=== PATIENT | male | born 1955 | race Caucasian/White ===

== ENCOUNTER 2020-04-30 13:29 | Outpatient (CLI) | payer MEDICARE, MEDICAID, SELFPAY ==
--- NOTE | 2020-04-30 14:12 | CT_ITS ---
WS: [id number] CT ABDOMEN AND PELVIS WITH CONTRAST HISTORY: LEFT UPPER QUADRANT PAIN TECHNIQUE: Imaging performed of the abdomen and pelvis with IV contrast. Single phase imaging of the abdomen. Coronal and sagittal reformats are submitted. All CT scans at [facility] use at least one of these dose optimization techniques: automated exposure control; mA and/or kV adjustment per patient size (includes targeted exams where dose is matched to clinical indication); or iterativ e reconstruction. IV CONTRAST: Visipaque 320; 95 mL IV. Oral contrast: Yes. DLP: 1176.79 mGycm COMPARISON: 03/10/2018 Lower thorax: Chronic emphysematous changes and scarring at the lung bases. Mildly enlarged heart. Mi ld diffuse circumferential thickening of the distal esophagus. Similar to the prior study. Liver/biliary system: Normal size liver. There are several subcentimeter scattered hypodensities thro ughout the liver which appear to been present on the prior study. Portal vein is patent. Gallbladder: Chronic diffuse thickening of the gallbladder wall. There is increased density within th e gallbladder lumen likely due to stones. Common bile duct is not dilated. Pancreas: Severe fatty replacement. Spleen: Normal. Adrenal glands: Bilateral adrenal gland nodules are stable over several years. The largest on the LEF T measures 2.0 cm. Right kidney: Mild atrophy with no obstruction. Left kidney: Mild renal atrophy with no obstruction. Simple cyst measures 1.2 cm upper pole. There is a nonobstructing calcification in the lower pole measuring 8 mm. Aorta: Mild tortuosity and atherosclerosis of aorta. There is calcified plaque and intimal thickening with no aneurysm. Lymphadenopathy: None. Free fluid: None. GI tract: No GI tract obstruction. There are a few scattered diverticula in the descending and sigmoi d colon. Fatty-containing nodule from the descending colon may be from prior epiploic appendicitis. Fat necrosis. Abdominal wall: Postsurgical repair of the LEFT lateral abdominal wall hernia. Pelvis: Inguinal canals are patent bilaterally. No free fluid in the pelvis. Normally distended urina ry bladder. Bones: Bilateral pars defects. CT/CT abdomen pelvis w con* [id number] IMPRESSION: 1. Abnormal gallbladder. Diffuse chronic gallbladder wall thickening with vari able density in the gallbladder. Abnormal density in the gallbladder is probabl y due to stones. Gallbladder mass cannot be excluded on this examination. Consi khalida further evaluation by RIGHT upper quadrant ultrasound. Gallstones have been described on prior ultrasounds from 2014. 2. Fatty replacement of the pancreas. 3. Stable bilateral adrenal adenomas. 4. Prior repair of a LEFT abdominal wall hernia.
[2020-04-30] MEDS: iohexol 300 mg/mL 50 mL Btl PO (14:50)
[2020-04-30 15:54] LABS: Blood Urea Nitrogen 9 mg/dL (8-23)
== END 2020-04-30 13:30 | disposition home or self-care (01) ==
LOC: RADWPI 13:42
PROVIDERS: Family Provider Nurse Practitioner Family; PCP Nurse Practitioner Family; Visit Provider Surgery
DX: R10.12 Left upper quadrant pain (principal); R93.2 Abnormal findings on diagnostic imaging of liver and biliary tract
CPT/HCPCS: 74177; 82565; 84520; Q9967

== ENCOUNTER 2020-07-03 10:11 | Outpatient (CLI) | payer MEDICARE, MEDICAID, SELFPAY ==
--- NOTE | 2020-07-03 10:16 | CT_ITS ---
WS: [id number] CT NECK TECHNIQUE: Contrast-enhanced CT of the neck with coronal and sagittal reformatted images. CLINICAL INFORMATION: CHRONIC LARYNGITIS-DYSPHAGIA, OROPHARYNGEAL PHASE COMPARISON: None. DLP: 3249.[address] scans at [facility] use at least one of these dose optimization techniques: automat ed exposure control; mA and/or kV adjustment per patient size (includes targeted exams where dose is matched to clinical indication); or iterative reconstruction. FINDINGS: Salivary glands are normal. Normal submandibular glands. Posterior nasopharynx is normal. Normal tong ue base. Normal parapharyngeal fat. No evidence of supraglottic or glottic mass. Normal vallecula and piriform sinuses. Subglottic airway is normal. No cervical lymphadenopathy. A few prominent lymph nodes in the anterior mediastinum likely reactive. Thyroid gland is normal. Emphysematous changes in the lung apices. Moderate spondylitic changes cerv ical spine. Mastoid air cells are well aerated. Complete Opacification frontal sinuses and frontoethm oidal recesses. Small amount of fluid in the sphenoid sinuses. Mild mucosal thickening mastoid air cells. CT/CT neck w con* [id number] IMPRESSION: 1. No evidence of supraglottic or glottic mass. 2. Normal salivary glands. 3. Cervical lymphadenopathy. 4. Complete opacification of the frontal sinuses and frontal ethmoidal recesse s. Mild mucosal thickening ethmoid air cells and small amount of fluid in the s phenoid sinuses. 5. Mild mucosal thickening in the mastoid air cells.
[2020-07-03] MEDS: iohexol 300 mg/mL 100 mL Btl IV (10:34)
== END 2020-07-03 10:12 | disposition home or self-care (01) ==
LOC: RADWPI 10:15
PROVIDERS: Family Provider Nurse Practitioner Family; PCP Nurse Practitioner Family; Visit Provider Specialist
DX: J37.0 Chronic laryngitis (principal); R13.12 Dysphagia, oropharyngeal phase; R59.0 Localized enlarged lymph nodes
CPT/HCPCS: 70491; Q9967

== ENCOUNTER 2020-07-19 10:57 | Outpatient (CLI) | payer MEDICARE, MEDICAID, SELFPAY ==
--- NOTE | 2020-07-19 11:06 | FL_ITS ---
WS: [id number] MODIFIED BARIUM SWALLOW HISTORY: Oropharyngeal dysphagia FLUOROSCOPY TIME: 1.8 minutes. Modified barium swallow was performed by the speech pathologist. Fluoroscopy was provided with the pa tient in a lateral projection. Multiple food consistencies were provided. Patient swallowed all food consistencies without difficulty. No aspiration or laryngeal penetration w as identified. There is some very minimal coating of the vallecula and piriforms. Patient swallowed t he barium tablet without difficulty. Dysmotility and poor contractility of the mid to distal esophagu s. There was intermittent delay in propulsion of the barium tablet through the GE junction which is p robably due to dysmotility. FL/FL barium swallow modifd [id number] IMPRESSION: 1. No significant aspiration or laryngeal penetration or swallowing deficits. 2. Moderate esophageal poor contractility and dysmotility. Please see speech therapist report also for recommendations.
== END 2020-07-19 10:58 | disposition home or self-care (01) ==
LOC: RAD 11:01
PROVIDERS: PCP Nurse Practitioner Family; Visit Provider Specialist
DX: J37.0 Chronic laryngitis (principal); R13.12 Dysphagia, oropharyngeal phase
CPT/HCPCS: 74230; 92611

== ENCOUNTER 2020-07-22 09:47 | Outpatient (CLI) | payer MEDICARE, MEDICAID, SELFPAY ==
--- NOTE | 2020-07-22 09:51 | FL_ITS ---
WS: [id number] ESOPHAGRAM TECHNIQUE: Double contrast examination was performed with thin and thick barium. Upright and ZHAO imag es were obtained. CLINICAL INFORMATION: CHRONIC LARYNGITIS/DYSPHAGIA, OROPHARYNGEAL PHASE COMPARISON: None. FINDINGS: Swallowing: No aspiration or penetration. Esophagus: Severe esophageal dysmotility with tertiary contractions in the distal esophagus. Signific antly delayed emptying on the upright and supine imaging with standing column of contrast for several minutes. GE junction appears normal. No significant hiatal hernia. Gastroesophageal reflux: Moderate reflux in the upright and supine position Fluoroscopy time: 3.5 minutes. FL/FL barium swallow [id number] IMPRESSION: 1. Severe esophageal dysmotility with tertiary contractions in the distal esop hagus and delayed emptying. 2. Significantly delayed emptying on the upright and supine imaging with stand ing column of contrast for several minutes. Patient risk for aspiration. 3. No evidence of persistent stricture or mass. 4. Moderate reflux in the upright and supine position.
== END 2020-07-22 09:48 | disposition home or self-care (01) ==
LOC: RAD 09:48
PROVIDERS: PCP Nurse Practitioner Family; Visit Provider Specialist
DX: J37.0 Chronic laryngitis (principal); R13.12 Dysphagia, oropharyngeal phase
CPT/HCPCS: 74220

== ENCOUNTER 2020-08-12 12:54 | Outpatient (CLI) | payer MEDICARE, MEDICAID, SELFPAY ==
--- NOTE | 2020-08-12 13:15 | CT_ITS ---
WS: [id number] CT CHEST TECHNIQUE: Noncontrast CT of the chest with coronal and sagittal reformatted images. CLINICAL INFORMATION: COPD COMPARISON: CT chest December 22, 2017 and DLP: 943.[address] scans at [facility] use at least one of these dose optimization techniques: automat ed exposure control; mA and/or kV adjustment per patient size (includes targeted exams where dose is matched to clinical indication); or iterative reconstruction. FINDINGS: Moderate chronic emphysematous changes. Patchy fibrotic appearing opacities in the left lower lobe si milar to previous. Patchy nodular opacities in left upper lobe new from previous and may be infectiou s or inflammatory but nonspecific. Nodular opacities measure 5 to 6 mm. Patchy hazy opacities in the right lower lobe progressed from previous likely infectious or inflammat ory.No mediastinal or hilar lymphadenopathy. Normal endobronchial tree. Bilateral renal cortical atrophy. Stable bilateral adrenal adenomas. Small splenule. Cholelithiasis w ith gallbladder wall thickening. Recommend further evaluation with ultrasound. This is partially visu alized. Fatty atrophy of the pancreas. Small pericardial effusion. Hypertrophic changes thoracic spin e. CT/CT chest wo con [id number] IMPRESSION: 1. Moderate chronic emphysematous changes. 2. New patchy opacities in right lower lobe likely infectious or inflammatory. Recommend correlation for pneumonitis. 3. New micronodular patchy opacities left upper lobe measuring 5-6 mm. Recomme nd 3 month follow-up. 4. Stable fibrotic appearing opacities/subsegmental atelectasis left lower lob e. 5. No mediastinal or hilar lymphadenopathy. 6. Cholelithiasis with gallbladder wall thickening. Recommend further evaluati on with ultrasound. 7. Stable bilateral adrenal adenomas. 8. Small pericardial effusion.
== END 2020-08-12 12:55 | disposition home or self-care (01) ==
LOC: RADWPI 13:00
PROVIDERS: PCP Nurse Practitioner Family; Visit Provider Internal Medicine Pulmonary Disease
DX: J44.9 Chronic obstructive pulmonary disease, unspecified (principal); I31.3 Pericardial effusion (noninflammatory); D35.02 Benign neoplasm of left adrenal gland; D35.01 Benign neoplasm of right adrenal gland; K80.20 Calculus of gallbladder without cholecystitis without obstruction
CPT/HCPCS: 71250

== ENCOUNTER → 2020-08-19 10:18 | Outpatient (BNVA) | payer MEDICARE, MEDICAID, SELFPAY | PROVIDERS: PCP Nurse Practitioner Family; Visit Provider Internal Medicine Pulmonary Disease | DX: Z20.828 Contact with and (suspected) exposure to other viral communicable diseases (principal); R04.2 Hemoptysis | CPT/HCPCS: 87635 ==

== ENCOUNTER 2020-08-21 09:00 | Outpatient (CLI) | payer MEDICARE, MEDICAID, SELFPAY ==
[2020-08-21 10:06] VITALS: BP 142/86; BP 151/82
--- NOTE | 2020-08-21 10:08 | PFTS_ITS ---
Date of Study:08/21/20 Date of Dictation: MECHANICS: Forced vital capacity (FVC) is reduced. Forced expiratory volume in one second (FEV1) is reduced. FEV1/FVC is reduced. FLOW VOLUME LOOP: Reduced flow at all lung volumes with significant scooping. LUNG VOLUMES: Lung volumes are not measured DIFFUSING CAPACITY FOR CARBON MONOXIDE: Moderately reduced INTERPRETATION: The pulmonary function tests are consistent with moderate obstruction. Gas exchange (DLCO) is moderately reduced. MTDD
== END 2020-08-21 09:01 | disposition home or self-care (01) ==
LOC: RT 09:01
PROVIDERS: PCP Nurse Practitioner Family; Visit Provider Internal Medicine Pulmonary Disease
DX: J44.9 Chronic obstructive pulmonary disease, unspecified (principal)
CPT/HCPCS: 94010; 94618; 94729

== ENCOUNTER 2020-08-22 10:07 | Inpatient (IN) | payer MEDICARE, MEDICAID, SELFPAY ==
[2020-08-20 08:53] VITALS: BMI 28.5
[2020-08-22] VITALS (25 sets, daily range): BP systolic 97–137; BP diastolic 76–115; PULSE 102–142; RESP 13–28; TEMP 35.5–36.7; O2SAT 92–97
--- NOTE | 2020-08-22 07:25 | ECG_ITS ---
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 Measurements Intervals [place] Rate: 133 P: [place]: -1 QRS: 64 QRSD: 96 T: 28 QT: 277 QTc: 413 Interpretive Statements ATRIAL FIBRILLATION WITH RAPID VENTRICULAR RESPONSE SEPTAL MYOCARDIAL INFARCTION [40+ ms Q WAVE IN V1/V2], PROBABLY OLD Compared to ECG 07/12/2015 12:34:55 Myocardial infarct finding now present Sinus bradycardia no longer present Electronically Signed On 08-22-2020 17:11:32 CDT by Mle Cobb M.D. [id number]
[2020-08-22] MEDS: sodium chloride 0.9% 1,000 ML 30 ML IV (07:36)
--- NOTE | 2020-08-22 08:18 | ANES.PREANE2 ---
Pre-Anesthetic Assessment Pre-Anesthetic Assessment: Height/Weight: Height 1.8 m Weight 92.986 kg Temp Pulse Resp BP Pulse Ox 96 F L 137 H 18 137/115 96 08/22/20 07:29 08/22/20 07:29 08/22/20 07:29 08/22/20 07:29 08/22/20 07:29 Preop Diagnosis: GERD, screening Proposed Procedure: Operation Date: 08/22/20 09:00 Proposed Procedures p EGD/colon(Not Applicable) - Neil Flores MD s Colonoscopy(Not Applicable) - Neil Flores MD Familial anesthetic complications: None Was Beta Abilio taken within 24 hours: Yes Last intake: Intake Last Liquid Date 08/21/20 Last Liquid Time 22:00 Last Solid Date 08/21/20 Last Solid Time 08:00 Social: Comment: former smoker Exam: Pre-Anes Outpt Exam: alert, oriented x 3, clear to auscultation bilaterally and regular rate & rhythm Airway: Cervical ROM: WNL Dentition: Other (edentulous) Additional comments: no uvula Pulmonary: Pulmonary: COPD and Sleep apnea CV/HEM: CV/HEM: Afib Comments: currently in RVR Xarelto last taken on wednesday, no may currently be at risk of clot formation Will try to control rate w/ IV metroprolol - if unable to get rate down, cardiology recommending admission and rate control and postponement of colonoscopy GI: GI: GERD Metabolic: Metabolic: Hyperlipidemia Anesthetic Plan: ASA status: 4 Anesthesia: MAC Risk of > 500 ml blood loss (7ml/kg in children): No Meds/Allergies Current Medications: Current Medications Generic Name Dose Route Start Last Admin Trade Name Freq PRN Reason Stop Dose Admin Sodium Chloride 1,000 mls @ 30 ml s/hr 08/22/20 07:30 08/22/20 07:36 Sodium Chloride 0.9% IV 08/23/20 07:29 30 mls/hr .Q24H HERMINIO Administration PFSH Anesthesia PFSH: Medical History (Updated 08/22/20 @ 07:27 by Jazmyn Dallas) Anticoagulation adequate with anticoagulant therapy Xarelto 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 Surgical History Status post thoracic aortic aneurysm repair Family History Father CAD (coronary artery disease) Myocardial infarction Other Cancer Social History Smoking and tobacco status: former smoker Quit status (tobacco): has quit using tobacco Year quit tobacco: 1980 - 0.5 PPD x 8 Years Second hand smoke exposure: Yes Alcohol intake: current Alcohol intake frequency: holidays/special occasions only Lives independently: Yes Household members: none Marital status: service: No Current occupational status: disabled History of recent travel: No Current gender identity: Male Data Anesthesia Cardiac Studies: No Data to Display
[2020-08-22] MEDS: metoprolol tartrate 1 mg/1 mL SDV 5 mL 5 MG IV ×2 (08:19→10:42)
[2020-08-22] MEDS: sodium chloride 0.9% 500 ML 999 ML IV (09:30)
[2020-08-22 10:01] LABS: Basophils # 0.1 10^3/uL (0.0-0.1); Basophils % 1.2 %; Eosinophils # 0.1 10^3/uL (0.0-0.8); Eosinophils % 2.8 %; Hemoglobin 12.9 g/dL (11.7-16.6); Lymphocytes # 1.2 10^3/uL (0.8-4.8); Lymphocytes % 23.6 %; Mean Corpuscular HGB Conc 30.7 g/dL (30.0-36.0); Mean Corpuscular Hemoglobin 26.2 pg (28.0-34.0); Mean Corpuscular Volume 85.2 fL (80-94); Monocytes # 0.6 10^3/uL (0.2-0.9); Monocytes % 11.1 %; Neutrophils # 3.07 10^3/uL (1.8-7.7); Neutrophils % 60.9 %; Nucleated Red Blood Cells % 0 %; Platelet Count 150 10^3/cmm (130-400); Red Blood Count 4.93 10^6/uL (4.1-5.3); Red Cell Distribution Width 15.6 % (12.1-15.1)
[2020-08-22 10:14] LABS: Alanine Aminotransferase 7 U/L (0-41); Albumin Level 3.3 g/dL (3.5-5.2); Alkaline Phosphatase 46 IU/L (40-130); Anion Gap 10.6 (5-19); Aspartate Amino Transferase 15 U/L (0-40); Blood Urea Nitrogen 15 mg/dL (8-23); Carbon Dioxide 27 mmol/L (22-29); Chloride 104 mmol/L (98-107); Creatinine Clr Calc Pharmacy 86.9508; Globulin 3.3 g/dL (1.3-4.6); Glomerular Filtration Rate 75.2 mL/min (90-130); Glucose 90 mg/dL (65-115); Osmolality Calculated 284 mOsm/kg (285-295); Potassium 4.6 mmol/L (3.5-5.1); Sodium 137 mmol/L (136-145); Total Bilirubin 0.8 mg/dL (0.15-1.2); Total Protein 6.6 g/dL (6.6-8.7)
--- NOTE | 2020-08-22 10:30 | PC.NURSE ---
Patient to CSU from OP surgery. Patient A&Ox4, no chest pain, no shortness of breath. A fib c RVR on telemetry, HR 120s-130s BP 114/96. Dr. Almaguer notified of patient condition. Telephone order received for IV metoprolol 5 mg one time. RBVO.
--- NOTE | 2020-08-22 10:38 | XR_ITS ---
WS: [id number] Portable AP upright chest, 08/22/2020 Clinical Data: A Fib RVR, concern for CHF Comparison: PA and lateral chest, 10/11/2018. Findings: No nodules, masses or effusions are seen. The heart is large. The pulmonary vascularity is not increased. No pneumonia or pneumothorax is seen. There is patchy atelectasis at the left costophr enic angle. There are sutures in the left upper quadrant. Monitor leads are on the chest wall. The ao rtic arch and descending aorta are tortuous. XR/XR chest 1V portable [id number] Impression: 1. Cardiomegaly. 2. Atherosclerosis. 3. No evidence of heart failure.
--- NOTE | 2020-08-22 11:05 | SUR.PREOP ---
1020: patient taken to 103. report was called to Maya MADRIGAL. Patient is awake and alert, able to ambulate. taken by wheelchair. patient on room air.
--- NOTE | 2020-08-22 11:57 | P.HP_ITS ---
Providers/Chief Complaint Admitting Physician: Neil Flores MD Primary Care Provider: ALEJA Oropeza Chief Complaint: egd/colon History of Present Illness Lidia Ruvalcaba is a 65 year old male with a past medical history of atrial fibrillation that presented to the hospital today for scheduled colonoscopy. He reported that he has been doing his prep and did not have any concerns. Presented to the hospital today was noted to have atrial fibrillation with RVR therefore case was canceled and patient was admitted to the hospital for further evaluation and treatment. He denies any recent illness, no fevers or chills. Denies any changes in his medications and believes that he took his metoprolol this morning but he is uncertain. Stated that he was told to take 2 medications and he thinks they were his metoprolol and his montelukast. He denies any chest pain, no shortness of breath. Reported that he has followed with Dr. Jenkins in the past. Review of Systems Const: Denies: fever(s) or chills Eyes: Denies: change in vision ENMT: Denies: nasal congestion Card: Denies: chest pain, palpitations or edema Resp: Denies: dyspnea, productive cough or hemoptysis GI: Reports: other (loose stools with colonoscopy prep); Denies: abdominal pain, nausea, vomiting, constipation, hematochezia or melena : Denies: dysuria or hematuria Musc: Denies: extremity pain or muscle cramps Skin/Breast: Denies: rash or new lesions Neuro: Denies: headache(s) or dizziness Psych: Denies: anxiety or depression Endo: Denies: polyuria or hot flashes Agustin/Lymph: Denies: easy bruising or easy bleeding Medications/Allergies Home Medications Medication Instructions Recorded Confirmed Last Taken Type amlodipine 5 mg tablet 5 mg PO QDAY 12/27/19 08/22/20 08/21/20 History irbesartan 150 mg tablet 150 mg PO QDAY 12/27/19 08/22/20 08/21/20 History levocetirizine 5 mg tablet 5 mg PO QDAY PRN 12/27/19 08/22/20 08/21/20 History metoprolol succinate 50 mg 25 mg PO QDAY tab 12/27/19 08/22/20 08/22/20 05:45 History tablet,extended release 24 hr pantoprazole 40 mg tablet,delayed 40 mg PO QDAY 12/27/19 08/22/20 08/21/20 Hi story release rivaroxaban 15 mg tablet 15 mg PO QDAY 12/27/19 08/22/20 08/20/20 History simvastatin 20 mg tablet 20 mg PO QDAY 12/27/19 08/22/20 08/21/20 History umeclidinium 62.5 mcg-vilanterol 1 inh INHALATION DAILY #60 each 08/15/20 08/22/20 Unknown Rx 25 mcg/actuation powdr for inhalation montelukast 10 mg PO DAILY 08/20/20 08/22/20 08/22/20 05:45 History Allergies Allergy/AdvReac Type Severity Reaction Status Date / Time No Known Allergies Allergy Verified 08/15/20 09:00 PFSH Acute PFSH: Medical History (Updated 08/22/20 @ 12:30 by Kathleen Almaguer DO) Anticoagulation adequate with anticoagulant therapy Xarelto Atrial fibrillation 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 Surgical History (Updated 08/22/20 @ 12:30 by Kathleen Almaguer DO) History of hernia repair Status post thoracic aortic aneurysm repair Family History Father CAD (coronary artery disease) Myocardial infarction Other Cancer Social History Smoking and tobacco status: former smoker Quit status (tobacco): has quit using tobacco Year quit tobacco: 1980 - 0.5 PPD x 8 Years Second hand smoke exposure: Yes Alcohol intake: current Alcohol intake frequency: holidays/special occasions only Lives independently: Yes Household members: none Marital status: service: No Current occupational status: disabled History of recent travel: No Current gender identity: Male Vitals/I&O/Wt Last Vital Signs Temp 98.0 F 08/22/20 10:27 Pulse 102 H 08/22/20 11:12 Resp 20 H 08/22/20 10:41 BP 125/99 08/22/20 10:41 Pulse Ox 97 08/22/20 11:12 09/23/20 09/24/20 09/24/20 22:59 06:59 14:59 Intake Total 1500 / 1500 Balance 1500 / 1500 Physical Exam Const: COMMON NORMALS: patient oriented x3 and alert GENERAL APPEARANCE: cooperative ORIENTATION/CONSCIOUSNESS: Yes awake, Yes oriented to person, Yes oriented to place and Yes oriented to time HENMT: COMMON NORMALS: normocephalic and atraumatic HEAD & SCALP: normocephalic and atraumatic Eye: COMMON NORMALS: Equal, round and reactive pupils present PUPIL: Yes Equal, round and reactive pupils present Neck/C-Spine: COMMON NORMALS: supple GENERAL: Yes normal visual inspection Resp: COMMON NORMALS: normal respiratory effort and clear to auscultation bilaterally EFFORT & INSPECTION: Yes able to speak in complete sentences AUSCULTATION: clear to auscultation bilaterally, no rhonchi and no wheezes Cardio: OTHER: tachycardic, irregularly irregular GI: COMMON NORMALS: Soft to palpation and non-tender INSPECTION: No abdominal distension AUSCULTATION: Yes normoactive bowel sounds PALPATION: Yes Soft to palpation Extremity: COMMON NORMALS: no calf tenderness NARRATIVE EXTREMITY EXAM: 1+ pitting edema in the LE bilaterally Neuro: COMMON NORMALS: patient oriented x3, CN's II-XII intact bilaterally, moves all extremities and no focal motor deficits SENSORIUM/ORIENTATION: Yes alert, Yes oriented to person, Yes oriented to place and Yes oriented to time SPEECH: speech normal Psych: COMMON NORMALS: mental status grossly normal and cooperative Skin: COMMON NORMALS: no rashes or lesions noted GENERAL SKIN EXAM: no rashes or lesions noted Data : 08/22/20 09:52 08/22/20 09:38 A&P Assessment and plan (1) Atrial fibrillation: Presented for scheduled elective colonoscopy in Afib RVR Move to ICU on observation Telemetry Serial EKG and troponin ECHO TSH, CBC, CMP Given [id number] IV push x2 and remains afib RVR, will start cardizem drip. Patient reports taking his metoprolol this morning, but not completely confident Treatment dose lovenox while inpatient Status: Acute (2) COPD (chronic obstructive pulmonary disease): without acute exacerbation Oxygen per protocol RTAT Status: Acute Qualifiers: COPD type: unspecified COPD Qualified Code(s): J44.9 - Chronic obstructive pulmonary disease, unspecified (3) Anticoagulation adequate with anticoagulant therapy: Hold xarelto and give treatment dose lovenox while inpatient Status: Acute (4) WENDI (obstructive sleep apnea): not on CPAP Status: Acute (5) Hyperlipidemia: continue on statin Status: Acute Additional A&P Information Endoscopy: on hold at this time HTN: hold amlodipine, hold losartan and monitor BP with changes and addition of cardizem DVT ppx: Tx lovenox as above Diet: Cardiac Code status: Full code Attestations Medical Necessity Statement*: Observation placement due to atrial fibrillation with RVR in the preprocedural setting. Expected stay less than 2 midnights Coding Level of Care Code Acute Material Man for g Fwd Exam Comprehensive Diagnoses Atrial fibrillation I48.91 COPD (chronic obstructive pulmonary disease) J44.9 COPD type: unspecified COPD Anticoagulation adequate with anticoagulant therapy Z79.01 WENDI (obstructive sleep apnea) G47.33 Hyperlipidemia E78.5
[2020-08-22 12:03] LABS: INR 1.14 (0.8-1.2)
[2020-08-22 12:10] LABS: Magnesium 1.9 mg/dL (1.7-2.3); NT Pro B Type Natriuretic Pept 2026 pg/mL (0-125); Thyroid Stimulating Hormone 1.14 uIU/mL (0.27-4.20)
--- NOTE | 2020-08-22 12:18 | PC.NURSE ---
Dr. Almaguer updated on patient condition. Patient maintaining 130s-140s a fib 1 hour following metoprolol administration. Physician to put in order for Cardizem gtt and cardiac diet. Telephone order received to administer 10 mg Cardizem Bolus IV at initiation of gtt. Nurse to continue to monitor.
--- NOTE | 2020-08-22 12:22 | PC.NURSE ---
10 mg Cardizem bolus delivered with IV gtt. See flowsheet.
--- NOTE | 2020-08-22 12:39 | ECG_ITS ---
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 Measurements Intervals [place] Rate: 129 P: [place]: -1 QRS: 58 QRSD: 93 T: 3 QT: 289 QTc: 424 Interpretive Statements ATRIAL FIBRILLATION WITH RAPID VENTRICULAR RESPONSE SEPTAL MYOCARDIAL INFARCTION [40+ ms Q WAVE IN V1/V2], OF INDETERMINATE AGE WARNING: DATA QUALITY MAY AFFECT INTERPRETATION Compared to ECG 08/22/2020 07:53:38 No significant changes Electronically Signed On 08-22-2020 17:10:40 CDT by Mel Cobb M.D. [id number]
[2020-08-22] MEDS: metoprolol succinate ER (24 HR) 25 mg Tablet PO (13:23)
[2020-08-22] MEDS: atorvastatin 40 mg Tablet 20 MG PO (13:23)
[2020-08-22] MEDS: enoxaparin 100 mg/mL Syringe 90 MG SUBCUT (13:23)
[2020-08-22] MEDS: pantoprazole DR 40 mg Tablet PO (13:23)
[2020-08-22 13:29] LABS: Troponin(5th) Baseline 7 ng/L (0-15)
[2020-08-22 13:55] LABS: Troponin 5 2HR 6.73 ng/L (0-15)
[2020-08-22 13:56] LABS: Troponin 5 2HR Delta -0.27 ABS# (0-10)
--- NOTE | 2020-08-22 13:58 | PC.NURSE ---
Dr. Almaguer updated on patient condition. HR 130s-140s a fib, on 15 ml/hr Cardizem gtt for 30 minutes. BP 110/76. No new orders received at this time. Nurse to continue to monitor.
--- NOTE | 2020-08-22 14:39 | ECG_ITS ---
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 Measurements Intervals [place] Rate: 125 P: [place]: -1 QRS: 61 QRSD: 99 T: 16 QT: 294 QTc: 425 Interpretive Statements ATRIAL FIBRILLATION WITH RAPID VENTRICULAR RESPONSE SEPTAL MYOCARDIAL INFARCTION [40+ ms Q WAVE IN V1/V2], OF INDETERMINATE AGE Compared to ECG 08/22/2020 13:56:55 No significant changes Electronically Signed On 08-22-2020 17:14:04 CDT by Mel Cobb M.D. [id number]
--- NOTE | 2020-08-22 14:43 | PC.NURSE ---
Dr. Almaguer updated on patient condition. HR 120s-130s. BP 115/88. Physician to make medication adjustments.
[2020-08-22] MEDS: metoprolol tartrate 50 mg Tablet PO (14:50)
--- NOTE | 2020-08-22 16:57 | PC.NURSE ---
Dr. Almaguer notified patient HR remains 130-140s BP 114/83 following metoprolol administration. Patient has not urinated since arriving on unit. no bladder distention palpated. Give 500 ml NS bolus over 1 hour, RBTO.
[2020-08-22] MEDS: sodium chloride 0.9% 500 ML IV (17:27)
[2020-08-22 18:00] LABS: Troponin 5 6HR 7.24 ng/L (0-15); Troponin 5 6HR Delta 0.24 ng/L (0-12)
--- NOTE | 2020-08-22 18:39 | ECG_ITS ---
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 Measurements Intervals [place] Rate: 130 P: [place]: -1 QRS: 54 QRSD: 96 T: 7 QT: 292 QTc: 430 Interpretive Statements ATRIAL FIBRILLATION WITH RAPID VENTRICULAR RESPONSE SEPTAL MYOCARDIAL INFARCTION [40+ ms Q WAVE IN V1/V2], PROBABLY OLD Compared to ECG 08/22/2020 15:40:12 No significant changes Electronically Signed On 08-22-2020 20:30:55 CDT by Mel Cobb M.D. [email or web address].[id number]
--- NOTE | 2020-08-22 18:55 | PC.NURSE ---
Dr. Almaguer notified patient HR still 130s, BP 115/93. Fluid bolus complete. Physician gave telephone order to discontinue cardizem gtt. Give loading dose of IV amiodarone and start patient on gtt. RBTO.
[2020-08-23] VITALS (7 sets, daily range): BP systolic 108–140; BP diastolic 77–97; PULSE 96–112; RESP 18–30; TEMP 36.3–37; O2SAT 91–99
[2020-08-23] MEDS: enoxaparin 100 mg/mL Syringe 90 MG SUBCUT (00:13)
[2020-08-23] MEDS: metoprolol tartrate 50 mg Tablet PO ×2 (02:09→15:58)
--- NOTE | 2020-08-23 02:28 | PC.NURSE ---
Patient started on Amio for elevated and sustained per Dr. Almaguer. Loading dose administered per orders. Continue care.
--- NOTE | 2020-08-23 02:30 | PC.NURSE ---
Amio titrated down to maintenance dose per orders at 0149, after loading dose, and initial dose for 6 hours per protocol. Heart rate still slightly elevated but more regulated at this time. Continue care.
--- NOTE | 2020-08-23 02:36 | PC.NURSE ---
Patient does not like receiving Lovenox injections, after nurse administered injection per order patient was rubbing injection site. Nurse educated patient on not rubbing injection site due to increased risk of bleeding. Patient complied. Continue care.
[2020-08-23 04:34] LABS: Basophils # 0.1 10^3/uL (0.0-0.1); Basophils % 1.2 %; Eosinophils # 0.1 10^3/uL (0.0-0.8); Eosinophils % 1.7 %; Hematocrit 41.6 % (42.0-52.0); Hemoglobin 12.6 g/dL (11.7-16.6); Lymphocytes # 1.1 10^3/uL (0.8-4.8); Mean Corpuscular HGB Conc 30.3 g/dL (30.0-36.0); Mean Corpuscular Hemoglobin 26.3 pg (28.0-34.0); Mean Corpuscular Volume 86.8 fL (80-94); Mean Platelet Volume 10.5 fL (7.4-10.4); Monocytes # 0.5 10^3/uL (0.2-0.9); Monocytes % 12.6 %; Neutrophils # 2.42 10^3/uL (1.8-7.7); Neutrophils % 57.3 %; Nucleated Red Blood Cells % 0 %; Platelet Count 150 10^3/cmm (130-400); Red Blood Count 4.79 10^6/uL (4.1-5.3); Red Cell Distribution Width 15.7 % (12.1-15.1); White Blood Count 4.2 10^3/uL (4.0-10.0)
[2020-08-23 05:04] LABS: Anion Gap 13.1 (5-19); Blood Urea Nitrogen 20 mg/dL (8-23); Calcium 9.4 mg/dL (8.5-10.5); Carbon Dioxide 24 mmol/L (22-29); Chloride 103 mmol/L (98-107); Glucose 100 mg/dL (65-115); Osmolality Calculated 283 mOsm/kg (285-295); Potassium 5.1 mmol/L (3.5-5.1); Sodium 135 mmol/L (136-145)
--- NOTE | 2020-08-23 07:14 | PC.RESP ---
Pulmonary Rehab information sent to patient.
--- NOTE | 2020-08-23 07:37 | ECG_ITS ---
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 Measurements Intervals [place] Rate: 98 P: [place]: -1 QRS: 70 QRSD: 101 T: 14 QT: 363 QTc: 465 Interpretive Statements ATRIAL FIBRILLATION SEPTAL MYOCARDIAL INFARCTION [40+ ms Q WAVE IN V1/V2], PROBABLY OLD Compared to ECG 08/22/2020 18:19:23 No significant changes Electronically Signed On 08-23-2020 16:37:53 CDT by Cedrick Weiner M.D. [id number]
[2020-08-23] MEDS: montelukast sodium 10 mg Tablet PO (08:35)
[2020-08-23] MEDS: atorvastatin 40 mg Tablet 20 MG PO (08:35)
[2020-08-23] MEDS: pantoprazole DR 40 mg Tablet PO (08:35)
[2020-08-23] MEDS: amiodarone 200 mg Tablet PO (10:07)
[2020-08-23] MEDS: pneumococcal (23 valent) SDV 0.5 mL IM (10:07)
--- NOTE | 2020-08-23 10:13 | PC.NURSE ---
Pt refused his pneumonia vaccine He said, I will wait to see my primary doctor in the clinic .
--- NOTE | 2020-08-23 10:27 | USCV_ITS ---
Lidia Ruvalcaba Age: 65 Gender: M : 1955 Exam Date: 08/23/2020 05:30 Ordering Phys: Kathleen Almaguer DO Technologist: Yasmeen Mata Exam Location: [facility] [place] Indication: AFIB BP: 128 / 102 HR: 109 Rhythm: Sinus Technical Quality: Adequate MEASUREMENTS (Male / Female) Normal Values 2D ECHO LV Diastolic Diameter PLAX 4.7 cm 4.2 - 5.9 / 3.9 - 5.3 cm LV Systolic Diameter PLAX 4.0 cm LV Chamber Size 3.7 cm IVS Diastolic Thickness 1.5 cm 0.6 - 1.0 / 0.6 - 0.9 cm IVS Systolic Thickness 1.6 cm LVPW Diastolic Thickness 1.7 cm 0.6 - 1.0 / 0.6 - 0.9 cm LVPW Systolic Thickness 1.8 cm RV Chamber Size 4.2 cm LVOT Diameter 2.0 cm LV Ejection Fraction 2D Teich 32.8 % LV Ejection Fraction MOD 2C 56.4 % LV Ejection Fraction 2C AL 57.8 % LA Diameter 4.7 cm LA Width 3.5 cm LA Height 5.0 cm RA Width 4.7 cm RA Height 6.4 cm Aorta at Sinotubular Diameter 3.1 cm M-MODE LV Diastolic Diameter MM 5.3 cm 4.2 - 5.9 / 3.9 - 5.3 cm LV Systolic Diameter MM 4.2 cm LV Ejection Fraction MM Teich 42.0 % IVS Diastolic Thickness MM 1.3 cm 0.6 - 1.0 / 0.6 - 0.9 cm IVS Systolic Thickness MM 1.4 cm LVPW Diastolic Thickness MM 1.3 cm 0.6 - 1.0 / 0.6 - 0.9 cm LVPW Systolic Thickness MM 1.6 cm RV Diastolic Diameter MM 3.0 cm Aortic Annulus Diameter 3.8 cm LA Ao Ratio MM 1.2 MV E Point Septal Separation 1.0 cm DOPPLER AV Peak Velocity 88.0 cm/s LVOT Peak Velocity 59.0 cm/s AV Area Cont Eq vti 2.3 cm squared AV Area Cont Eq pk 2.2 cm squared MV Area PHT 3.3 cm squared MV E' Velocity 9.0 cm/s Mitral E to MV E' Ratio 8.0 Mitral E to LV E' Lateral Ratio 7.4 Mitral E to LV E' Septal Ratio 8.7 TR Peak Velocity 317.0 cm/s TR Peak Gradient 31.2 mmHg TR Mean Velocity 181.4 cm/s TR Mean Gradient 16.3 mmHg TR Velocity Time Integral 92.2 cm TV Peak E Velocity 73.0 cm/s Pulmonary Artery Systolic Pressu 50.2 mmHg PV Peak Velocity 63.0 cm/s RV Ejection Time 0.1 s FINDINGS Left Ventricle Normal in size with diminished ejection fraction of around 40%. Diffuse hypokinesia of the left ventricle. Patient was found to be in atrial fibrillation with rapid ventricular rate. Segmental wall motion analysis and ejection fraction estimation could be misleading. Right Ventricle Mildly dilated RV size with slightly diminished ejection fraction Right Atrium Mildly increased right atrial size. Left Atrium Mildly increased left atrial size. Mitral Valve Mild mitral valve regurgitation. Aortic Valve Thickened aortic valve. Trace aortic valve regurgitation. Tricuspid Valve [id number]-[id number] tricuspid valve regurgitation. Thickened tricuspid valve. Pulmonic Valve Moderate pulmonary valve regurgitation. The pulmonary artery appears to be dilated Pericardium No pericardial effusion. Aorta Normal aortic annulus size. CONCLUSIONS Normal in size with diminished ejection fraction of around 40%. Diffuse hypokinesia of the left ventricle. Patient was found to be in atrial fibrillation with rapid ventricular rate. Mildly dilated right ventricle with a slightly diminished ejection fraction Mild biatrial enlargement Thickened aortic and mitral valves. Pzrj-ml-vnygsyyp tricuspid valve regurgitation. Mild mitral and trace of aortic regurgitation. Moderate pulmonic regurgitation with a dilated pulmonary artery Moderate pulmonary hypertension with estimated pulmonary artery peak systolic pressure of 50 mmHg There is no pericardial effusion. There are no intracardiac masses. Compared to the study from 07/12/2015, the biatrial enlargement and the drop in the left ventricular ejection fraction are new- possibly related to the arrhythmia Dr Uriel Shipman MD FAC (Electronically Signed) Final Date: 23 August 2020 13:31 S
[2020-08-23 14:14] LABS: Add Urine Microscopic? NO
[2020-08-23 14:28] LABS: Bilirubin Urine Neg (Negative); Blood Urine Neg (Negative); Glucose Urine UA Norm (Normal); Ketones Urine Negative (Negative); Leukocyte Esterase Urine Negative (Negative); Nitrate Urine Negative (Negative); Protein Urine Neg (Negative); Specific Gravity, Urine 1.025 (1.005-1.030); Urine Appearance Clear (CLEAR); Urine Color Yellow (Yellow); Urobilinogen Urine 1 mg/dL (Negative); pH Urine 5 (5-7)
--- NOTE | 2020-08-23 15:30 | PC.NURSE ---
Informed pt On the plan to increase his metoprolol to 75 mg and monitor him for the oral medicine for control of his HR. I informed him that he will be staying tonight. Talked to his sister Mirtha as well on the phone regarding his stay. Pt stated that he will need a ride during discharge. I told him we will let the social science professor know once there is a plan for discharge. Pt verbalizes understanding on all these.
--- NOTE | 2020-08-23 16:18 | P.PN_ITS ---
Subjective Subjective: Interval history: Patient awake in bed earlier today at time of exam. Remains in atrial fibrillation with RVR. Discussed with him plan to transition off of amiodarone drip and continue to titrate oral medications. Patient verbalized understanding. Vitals/I&O/Wt Last Vital Signs Temp 97.4 F L 08/23/20 08:38 Pulse 109 H 08/23/20 12:00 Resp 22 H 08/23/20 12:00 BP 129/87 08/23/20 12:00 Pulse Ox 99 08/23/20 12:00 08/23/20 08/23/20 08/23/20 06:59 14:59 22:59 Intake Total 307 / 2168.316 535.307 / 535.307 Output Total 300 / 750 600 / 600 Balance 7 / 1418.316 -64.693 / -64.693 Weight last 48 hrs Weight 92.986 kg Physical Exam Const: COMMON NORMALS: patient oriented x3 and alert GENERAL APPEARANCE: cooperative ORIENTATION/CONSCIOUSNESS: Yes awake, Yes oriented to person, Yes oriented to place and Yes oriented to time HENMT: COMMON NORMALS: normocephalic and atraumatic HEAD & SCALP: normocephalic and atraumatic Eye: COMMON NORMALS: Equal, round and reactive pupils present PUPIL: Yes Equal, round and reactive pupils present Neck/C-Spine: COMMON NORMALS: supple GENERAL: Yes normal visual inspection Resp: COMMON NORMALS: normal respiratory effort and clear to auscultation bilaterally EFFORT & INSPECTION: Yes able to speak in complete sentences AUSCULTATION: clear to auscultation bilaterally, no rhonchi and no wheezes Cardio: OTHER: tachycardic, irregularly irregular GI: INSPECTION: No abdominal distension AUSCULTATION: Yes normoactive bowel sounds Extremity: COMMON NORMALS: no calf tenderness NARRATIVE EXTREMITY EXAM: non- pitting edema in the LE bilaterally Neuro: COMMON NORMALS: patient oriented x3, CN's II-XII intact bilaterally, moves all extremities and no focal motor deficits SENSORIUM/ORIENTATION: Yes alert, Yes oriented to person, Yes oriented to place and Yes oriented to time SPEECH: speech normal Psych: COMMON NORMALS: mental status grossly normal and cooperative Skin: COMMON NORMALS: no rashes or lesions noted GENERAL SKIN EXAM: no rashes or lesions noted Data : 08/23/20 03:40 08/23/20 03:40 A&P Assessment and plan (1) Atrial fibrillation: Presented for scheduled elective colonoscopy in Afib RVR ECHO pending, prior CT showing small pericardial effusion Difficult to control rate, had been given metoprolol, cardizem drip then amiodarone drip Given IVF in the OR but this was discontinued due to concern for underlying CHF Increase metoprolol to 75mg BID and transition to oral amiodarone, given his difficulty understanding medications and concern for high doses of amiodarone will just start with 200mg daily as do not think he will do well with taper in the outpatient setting Change to inpatient admission due to difficult to control rate Treatment dose lovenox while inpatient Status: Acute (2) COPD (chronic obstructive pulmonary disease): without acute exacerbation Oxygen per protocol RTAT Status: Acute Qualifiers: COPD type: unspecified COPD Qualified Code(s): J44.9 - Chronic obstructive pulmonary disease, unspecified (3) Anticoagulation adequate with anticoagulant therapy: Hold xarelto and give treatment dose lovenox while inpatient Status: Acute (4) WENDI (obstructive sleep apnea): not on CPAP Status: Acute (5) Hyperlipidemia: continue on statin Status: Acute Additional A&P Information Endoscopy: on hold at this time HTN: BP stable at this time, holding home amlodipine and losartan DVT ppx: Tx lovenox as above Diet: Cardiac Code status: Full code Attestations Medical Necessity Statement*: change to inpatient admission due to continued afib RVR requiring further medication adjustments Coding Level of Care Code Acute 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
[2020-08-23] MEDS: rivaroxaban 10 mg Tablet 15 MG PO (18:43)
--- NOTE | 2020-08-23 19:52 | PC.NURSE ---
ASSUMED CARE AT SHIFT CHANGE. REPORT RECEIVED FROM OFF GOING NURSE. PT IS RESTING IN BED AND DENIES PAIN AT THIS TIME. PT STATES THAT THEY ARE READY TO GO HOME. WILL CONTINUE TO MONITOR.
[2020-08-24 04:00] VITALS: BP 136/99; PULSE 120; RESP 24; TEMP 37; O2SAT 94
[2020-08-24] MEDS: metoprolol tartrate 50 mg Tablet 75 MG PO (05:46)
--- NOTE | 2020-08-24 06:19 | PC.NURSE ---
PT STATES THAT THEY ARE EAGER TO GO HOME. PT DENIES PAIN AT THIS TIME. PT STATES THAT THEY JUST WANT TO SEE THE DOC SO THAT THEY CAN CHECK OUT. PT STILL IN A-FIB WITH A HR 111 AT THIS TIME. WILL GIVE REPORT TO ONCOMING NURSE.
[2020-08-24 07:54] VITALS: BP 116/73; PULSE 114; RESP 25; TEMP 36.2; O2SAT 94
--- NOTE | 2020-08-24 08:30 | PC.NURSE ---
Dr. Cazares notified that patient is refusing morning lab draws. No new orders at this time.
[2020-08-24] MEDS: amiodarone 200 mg Tablet PO ×2 (09:04→10:02)
[2020-08-24] MEDS: pantoprazole DR 40 mg Tablet PO (09:05)
[2020-08-24] MEDS: atorvastatin 40 mg Tablet 20 MG PO (09:05)
[2020-08-24] MEDS: rivaroxaban 10 mg Tablet 15 MG PO (09:05)
[2020-08-24] MEDS: montelukast sodium 10 mg Tablet PO (09:05)
[2020-08-24] MEDS: metoprolol tartrate 25 mg Tablet PO (10:02)
--- NOTE | 2020-08-24 12:47 | PM.PN ---
Subjective Subjective: Interval history: Patient was asymptomatic in the morning.And was expressing his desire to go home. His heart rate is still pretty uncontrolled. For most part it has remained between 110-120. We have talked to the family as well as with the patient. And he has agreed to stay. Medications: Reviewed: Yes Vitals/I&O/Wt Last Vital Signs Temp 97.1 F L 08/24/20 07:54 Pulse 114 H 08/24/20 07:54 Resp 25 H 08/24/20 07:54 BP 116/73 08/24/20 07:54 Pulse Ox 94 08/24/20 07:54 08/23/20 08/24/20 08/24/20 22:59 06:59 14:59 Intake Total 120 / 655.307 50 / 705.307 480 / 480 Balance 120 / 55.307 50 / 105.307 480 / 480 Weight last 48 hrs Weight 92.805 kg Weight 92.986 kg Physical Exam Const: COMMON NORMALS: patient oriented x3 HENMT: COMMON NORMALS: normocephalic, atraumatic, hearing grossly normal bilaterally and external ears normal HEAD & SCALP: normocephalic and atraumatic EXTERNAL EAR: Yes external ears normal Eye: COMMON NORMALS: no scleral icterus GENERAL EYE: appearance normal, both eyes and all related structures Chest: COMMONS NORMALS: normal inspection of the chest and normal palpation of entire chest wall CHEST: Yes Symmetrical chest wall rise Resp: COMMON NORMALS: normal respiratory effort, No retractions, No use of accessory muscles and clear to auscultation bilaterally EFFORT & INSPECTION: Yes symmetric chest movement AUSCULTATION: clear to auscultation bilaterally Cardio: COMMON NORMALS: regular rate, regular rhythm, S1 normal heart sound present, S2 normal heart sound present, No gallops present (Cardio), No murmurs present (Cardio), No rub (Cardio) and Peripheral pulses 2+ throughout RATE: regular rate RHYTHM: regular rhythm HEART SOUNDS: S1 normal heart sound present and S2 normal heart sound present PERIPHERAL PULSES: Peripheral pulses 2+ throughout GI: COMMON NORMALS: Normal to inspection, nondistended, normoactive bowel sounds present, Soft to palpation, non-tender, No hepatosplenomegaly present and no masses AUSCULTATION: Yes normoactive bowel sounds PALPATION: Yes Soft to palpation and Yes No hepatosplenomegaly present RECTAL EXAM: Yes deferred Extremity: COMMON NORMALS: no clubbing, cyanosis or edema and no pedal edema Neuro: COMMON NORMALS: patient oriented x3 Data : 08/23/20 03:40 08/23/20 03:40 A&P Assessment and plan (1) Atrial fibrillation: He was admitted for elective EGD and colonoscopy. Was found to be in A. fib with RVR. Initially started on Cardizem drip but failed on Cardizem drip as the heart rate remained uncontrolled and the blood pressure was on lower side. Was started on amiodarone drip. The patient was not agreeable to the amnio drip. Yesterday he was transitioned to 200 mg p.o. amiodarone oral daily and he was on 75mg metoprolol tart every 12 hours daily. His heart rate was still uncontrolled. We have increased metoprolol tartrate to 100 mg every 12 hour. And changed amiodarone to 400 mg every 8 hour daily. We will continue to monitor his heart rate. Status: Acute (2) COPD (chronic obstructive pulmonary disease): Currently there is no wheezing, no shortness of breath, he saturating well on room room air. Continue with PRN nebs. Status: Acute Qualifiers: COPD type: unspecified COPD Qualified Code(s): J44.9 - Chronic obstructive pulmonary disease, unspecified (3) WENDI (obstructive sleep apnea): No acute intervention. Status: Acute (4) Hyperlipidemia: No acute intervention Status: Acute (5) Status post thoracic aortic aneurysm repair: No acute intervention Status: Acute Attestations Medical Necessity Statement*: Patient needs to stay in hospital for management of uncontrolled heart secondary to A. fib Coding Level of Care Code Acute Health Information Administrator for [facility] Fwd Exam Comprehensive Diagnoses Atrial fibrillation I48.91 COPD (chronic obstructive pulmonary disease) J44.9 COPD type: unspecified COPD WENDI (obstructive sleep apnea) G47.33 Hyperlipidemia E78.5 Status post thoracic aortic aneurysm repair Z98.890; Z86.79
[2020-08-24 13:02] VITALS: BP 136/93; PULSE 118; RESP 19; TEMP 36.3; O2SAT 94
[2020-08-24 15:53] VITALS: BP 120/95; PULSE 114; RESP 15; TEMP 36.6; O2SAT 97
[2020-08-24] MEDS: amiodarone 200 mg Tablet 400 MG PO ×2 (15:54→23:31)
[2020-08-24 19:40] VITALS: BP 133/97; PULSE 111; RESP 20; TEMP 36.4; O2SAT 93
[2020-08-24] MEDS: metoprolol tartrate 50 mg Tablet 100 MG PO (21:09)
--- NOTE | 2020-08-24 21:47 | PC.NURSE ---
ASSUMED CARE AT SHIFT CHANGE. REPORT RECEIVED FROM OFF GOING NURSE. PT IS RESTING IN BED AND DENIES PAIN AT THIS TIME. WILL CONTINUE TO MONITOR.
[2020-08-24 23:33] VITALS: BP 132/96; PULSE 105; RESP 23; O2SAT 96
[2020-08-25 04:00] VITALS: BP 125/95; PULSE 94; RESP 20; O2SAT 94
[2020-08-25 05:52] VITALS: BMI 28.3
--- NOTE | 2020-08-25 05:54 | PC.NURSE ---
PT APPEARED TO HAVE RESTED WITH EYES CLOSED. PT WANTS TO GO HOME. PT DENIES PAIN AT THIS TIME. PT IN A-FIB WITH A HR 94 AT THIS TIME. WILL GIVE REPORT TO ONCOMING NURSE.
[2020-08-25 07:40] VITALS: BP 131/96; PULSE 97; RESP 14; TEMP 36.6; O2SAT 94
[2020-08-25] MEDS: amiodarone 200 mg Tablet 400 MG PO (07:41)
[2020-08-25] MEDS: rivaroxaban 10 mg Tablet 15 MG PO (08:34)
[2020-08-25] MEDS: pantoprazole DR 40 mg Tablet PO (08:35)
[2020-08-25] MEDS: montelukast sodium 10 mg Tablet PO (08:35)
[2020-08-25] MEDS: atorvastatin 40 mg Tablet 20 MG PO (08:35)
[2020-08-25] MEDS: dilTIAZem 30 mg Tablet PO (09:33)
[2020-08-25] MEDS: metoprolol tartrate 50 mg Tablet 100 MG PO (09:33)
--- NOTE | 2020-08-25 12:42 | PC.NURSE ---
Dr. Cazares updated on patient condition at 1210. Patient converted to sinus albin at 1201. Patient now sinus rhythm HR 30s-40s. BP 116/69. Patient asymptomatic. States he does not feel any different. Event occurred three hours after administration of cardizem. Physician to make medication adjustments. Nurse to continue to monitor.
[2020-08-25 13:01] VITALS: BP 115/78; PULSE 43; RESP 17; TEMP 36.1; O2SAT 94
--- NOTE | 2020-08-25 15:09 | PM.PN ---
Subjective Subjective: Interval history: Patient is comfortable. He has denied any, complain. Heart rate in the morning was uncontrolled, it was ranging from 110-120. He was started on diltiazem 30 mg every 6h oral, in addition to existing, metoprolol 100 every 12h, and amiodarone 400mg every 8h.Around 2pm he converted to sinus with heart rate as low as 40/min. Patient was completely asymptomatic and blood pressure was maintained. Next dose of diltiazem and amiodarone have been held.We will continue to monitor the heart rate and accordingly adjust the medications. Medications: Reviewed: Yes Vitals/I&O/Wt Last Vital Signs Temp 97.0 F L 08/25/20 13:01 Pulse 43 L 08/25/20 13:01 Resp 17 08/25/20 13:01 BP 115/78 08/25/20 13:01 Pulse Ox 94 08/25/20 13:01 08/25/20 08/25/20 08/25/20 06:59 14:59 22:59 Intake Total 480 / 480 Balance 480 / 480 Weight last 48 hrs Weight 92.215 kg Weight 92.805 kg Physical Exam Const: COMMON NORMALS: patient oriented x3 HENMT: COMMON NORMALS: normocephalic, atraumatic, hearing grossly normal bilaterally and external ears normal HEAD & SCALP: normocephalic and atraumatic EXTERNAL EAR: Yes external ears normal Eye: COMMON NORMALS: no scleral icterus GENERAL EYE: appearance normal, both eyes and all related structures Chest: COMMONS NORMALS: normal inspection of the chest and normal palpation of entire chest wall CHEST: Yes Symmetrical chest wall rise Resp: COMMON NORMALS: normal respiratory effort, No retractions, No use of accessory muscles and clear to auscultation bilaterally EFFORT & INSPECTION: Yes symmetric chest movement AUSCULTATION: clear to auscultation bilaterally Cardio: COMMON NORMALS: regular rate, regular rhythm, S1 normal heart sound present, S2 normal heart sound present, No gallops present (Cardio), No murmurs present (Cardio), No rub (Cardio) and Peripheral pulses 2+ throughout RATE: regular rate RHYTHM: regular rhythm HEART SOUNDS: S1 normal heart sound present and S2 normal heart sound present PERIPHERAL PULSES: Peripheral pulses 2+ throughout GI: COMMON NORMALS: Normal to inspection, nondistended, normoactive bowel sounds present, Soft to palpation, non-tender, No hepatosplenomegaly present and no masses AUSCULTATION: Yes normoactive bowel sounds PALPATION: Yes Soft to palpation and Yes No hepatosplenomegaly present RECTAL EXAM: Yes deferred Extremity: COMMON NORMALS: no clubbing, cyanosis or edema and no pedal edema Neuro: COMMON NORMALS: patient oriented x3 Data : 08/23/20 03:40 08/23/20 03:40 A&P Assessment and plan (1) Atrial fibrillation: He was admitted for elective EGD and colonoscopy. Was found to be in A. fib with RVR. Initially started on Cardizem drip but failed on Cardizem drip as the heart rate remained uncontrolled and the blood pressure was on lower side. Was started on amiodarone drip. The patient was not agreeable to the amnio drip. he was transitioned to 200 mg p.o. amiodarone oral daily and he was on 75mg metoprolol tart every 12 hours daily on . His heart rate was still uncontrolled on metoprolol tartrate was increased to 100 mg every 12 hour and changed amiodarone to 400 mg every 8 hour daily. Heart rate in the morning was uncontrolled, it was ranging from 110-120.He was started on diltiazem 30 mg every 6h oral, in addition to existing, metoprolol 100 every 12h, and amiodarone 400mg every 8h.Around 2pm he converted to sinus with heart Status: Acute (2) COPD (chronic obstructive pulmonary disease): Currently there is no wheezing, no shortness of breath, he saturating well on room room air. Continue with PRN nebs. Status: Acute Qualifiers: COPD type: unspecified COPD Qualified Code(s): J44.9 - Chronic obstructive pulmonary disease, unspecified (3) WENDI (obstructive sleep apnea): No acute intervention. Status: Acute (4) Hyperlipidemia: No acute intervention Status: Acute (5) Status post thoracic aortic aneurysm repair: No acute intervention Status: Acute Additional A&P Information Endoscopy: on hold at this time HTN: BP stable at this time, holding home amlodipine and losartan DVT ppx: On Xarelto. Diet: Cardiac Code status: Full code Attestations Medical Necessity Statement*: Patient needs to be in hospital for management of A. fib with RVR. 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
[2020-08-25 15:14] VITALS: BP 108/64; PULSE 42; RESP 21; TEMP 36; O2SAT 96
[2020-08-25 20:00] VITALS: BP 136/91; PULSE 45; RESP 20; O2SAT 98
[2020-08-25] MEDS: ALPRAZolam 0.25 mg Tablet 0.125 MG PO (20:08)
--- NOTE | 2020-08-25 22:22 | PC.NURSE ---
ASSUMED CARE AT SHIFT CHANGE. REPORT RECEIVED FROM OFF GOING NURSE. PT IS RESTING IN BED AND DENIES PAIN AT THIS TIME. PT IS SINUS LYLE AT 45. WILL CONTINUE TO MONITOR.
[2020-08-26] VITALS: BP 129/74; PULSE 50; RESP 20; O2SAT 98
[2020-08-26 04:00] VITALS: BP 142/83; PULSE 54; RESP 16; TEMP 36.1; O2SAT 96
--- NOTE | 2020-08-26 05:33 | PC.NURSE ---
PT APPEARED TO HAVE RESTED WITH EYES CLOSED. PT WANTS TO GO HOME. PT DENIES PAIN AT THIS TIME. PT HAS A SINUS LYLE RHYTHM WITH A HR 44 AT THIS TIME. WILL GIVE REPORT TO ONCOMING NURSE.
--- NOTE | 2020-08-26 06:04 | PC.NURSE ---
PT HR DROPPED TO 29. DR LOPEZ NOTIFIED. NO NEW ORDERS AT THIS TIME.
[2020-08-26 07:58] VITALS: BP 135/69; PULSE 58; RESP 19; TEMP 36.8; O2SAT 96
[2020-08-26] MEDS: rivaroxaban 10 mg Tablet 15 MG PO (09:15)
[2020-08-26] MEDS: montelukast sodium 10 mg Tablet PO (09:15)
[2020-08-26] MEDS: pantoprazole DR 40 mg Tablet PO (09:15)
[2020-08-26] MEDS: atorvastatin 40 mg Tablet 20 MG PO (09:15)
[2020-08-26] MEDS: amiodarone 200 mg Tablet PO (10:31)
--- NOTE | 2020-08-26 10:33 | PC.NURSE ---
0958 Dr hawk on unit verbal instructions to give 200mg amioderone po x1 now and monitor Heart rate
--- NOTE | 2020-08-26 10:59 | P.DS_ITS ---
Discharge Providers Date of Admission: 08/23/20 16:20 Date of Discharge: August 26, 2020 Attending Provider at Admission: Neil Flores MD Attending Provider at Discharge: Hong Tam MD Primary Care Provider: ALEJA Oropeza Diagnoses at Discharge Discharge Diagnosis (1) Atrial fibrillation: Status: Acute Problem details: Converted to sinus rhythm after given amiodarone. Will discharge on amiodarone with follow-up to cardiology. (2) COPD (chronic obstructive pulmonary disease): Status: Acute Qualifiers: COPD type: unspecified COPD Qualified Code(s): J44.9 - Chronic obs tructive pulmonary disease, unspecified (3) WENDI (obstructive sleep apnea): Status: Acute (4) Hyperlipidemia: Status: Acute (5) Status post thoracic aortic aneurysm repair: Status: Acute Reason for Visit Reason for Visit: egd/colon Hospital Course Hospital Course: Lidia is a 65-year-old white male who presented to the hospital on August 22, scheduled for a colonoscopy and was found to be in atrial fibrillation with rapid ventricular rate. Initially beta-quique and Cardizem were tried but secondary to persistence of atrial fibrillation with rapid ventricular rate he was placed on an amiodarone drip. He was transitioned to several oral medicines on August 24 including amiodarone. He also got a dose of metoprolol and Cardizem. He converted on August 25 around 2 PM, and was bradycardic. All medications were held. Morning of August 26 heart rate was 55, to 65 sinus rhythm. I discussed with him follow-up with cardiology. I placed him back on amiodarone, to take 200 mg twice a day for a week and then reduce dose to 200 mg a day. He will follow-up with cardiology within 7 to 10 days. He will obviously have to reschedule his colonoscopy after cardiology follow-up. He will also follow-up with his primary care provider. Home health will be initiated. Secondary to his persistent bradycardia his low-dose beta- quique was not restarted at this time. TSH, troponin were normal. Ejection fraction had decreased to 40% from previous in 2014 and biatrial enlargement was noted. Obviously this reduces his chance of staying in sinus rhythm long-term. Physical Exam Narrative: EXAM NARRATIVE: General exam no apparent distress Cardiovascular regular rate and rhythm, bradycardia Lungs clear Abdomen is soft with positive bowel sounds Extremities no cyanosis clubbing or edema Discharge Data Data Completed and Pending: Completed Studies During Hospitalization Category Date Time Status XR chest 1V nella ble 30247 Routine Exams 08/22/20 10:38 Completed CV echo complete* [id number] Routine Ultrasound 08/23/20 10:27 Completed Vitals: Last Vital Signs Temp 98.2 F 08/26/20 07:58 Pulse 58 L 08/26/20 07:58 Resp 19 H 08/26/20 07:58 BP 135/69 08/26/20 07:58 Pulse Ox 96 08/26/20 07:58 Discharge Plan Discharge Patient Disposition: Home Health Service Condition: Stable Prescriptions: New amiodarone 200 mg tablet 200 mg PO BID Qty: 44 RF: 0 Continued irbesartan 150 mg tablet 150 mg PO QDAY RF: 0 simvastatin [Zocor] 20 mg tablet 20 mg PO QDAY RF: 0 Xarelto 15 mg tablet 15 mg PO QDAY RF: 0 pantoprazole 40 mg tablet,delayed release (DR/EC) 40 mg PO QDAY RF: 0 Anoro Ellipta 62.5-25 mcg/actuation blister with device 1 inh INHALATION DAILY Qty: 60 RF: 3 montelukast 10 mg Tablet 10 mg PO DAILY RF: 0 Discontinued amlodipine [Norvasc] 5 mg tablet 5 mg PO QDAY RF: 0 metoprolol succinate 50 mg tablet extended release 24 hr 25 mg PO QDAY RF: 0 levocetirizine [Xyzal] 5 mg tablet 5 mg PO QDAY PRN (Reason: unknown) RF: 0 Discharge Orders: Discharge Order (Routine); Ordered 08/26/20 Ordered By: Hong Tam Referrals: Laura So FNP [Primary Care Provider] - 4-7 days Cedrick Weiner M.D [Physician] - 7-10 days Discharge Diet: Cardiac Discharge Activity: Increase activity as tolerated Activity Restrictions/Additional Instructions: Your amiodarone dose is 200 mg twice daily for 1 week then decrease to 200 mg once daily. Keep follow-up with cardiology and primary care provider. Return for any concerns. Discharge Attestations Time Spent in Discharge Care*: greater than 30 min Quality Metrics Clinical Quality Measures During this hospital stay, did patient experience: None Coding Level of Care Code Acute Gum Rolling Machine Operator for g Fwd Diagnoses Atrial fibrillation I48.91 COPD (chronic obstructive pulmonary disease) J44.9 COPD type: unspecified COPD WENDI (obstructive sleep apnea) G47.33 Hyperlipidemia E78.5 Status post thoracic aortic aneurysm repair Z98.890; Z86.79
[2020-08-26 12:00] VITALS: BP 149/80; PULSE 57; RESP 22; TEMP 37; O2SAT 97
[2020-08-26 13:01] VITALS: BP 149/80; PULSE 57; RESP 22; TEMP 37; O2SAT 97
--- NOTE | 2020-08-26 14:08 | PC.NURSE ---
Patient discharge home at this time patient provided and explained discharge instructions patient verbalized understanding. IV discontinued cath intact min bleeding noted patient verbalized understanding of all instruction provided. patient assisted to wheel chair and accompanied to transport vehicle. patient sister made aware of patients discharge. patients care to be followed by home health.
== END 2020-08-26 14:00 | disposition home health service (06) | DRG 310 ==
LOC: CSU 11:52
PROVIDERS: Family Medicine; Admitting Provider Surgery; PCP Nurse Practitioner Family; Visit Provider Internal Medicine
PROC: 0DJ08ZZ Inspection of Upper Intestinal Tract, Via Natural or Artificial Opening Endoscopic (ICD-10-PCS; CPT 43235; principal; 2020-08-22 09:00)
PROC: 0DJD8ZZ Inspection of Lower Intestinal Tract, Via Natural or Artificial Opening Endoscopic (ICD-10-PCS; CPT 45378; 2020-08-22 09:00)
DX: I48.91 Unspecified atrial fibrillation (principal); J44.9 Chronic obstructive pulmonary disease, unspecified; G47.33 Obstructive sleep apnea (adult) (pediatric); E78.5 Hyperlipidemia, unspecified; Z79.01 Long term (current) use of anticoagulants; Z53.8 Procedure and treatment not carried out for other reasons; K21.9 Gastro-esophageal reflux disease without esophagitis; Z87.891 Personal history of nicotine dependence
CPT/HCPCS: 12345; 36415; 71045; 80048; 80053; 81003; 83735; 83880; 84443; 84484; 85025; 85610; 90732; 93005; 93306; 96372; 96374; G0378; J0282; J1650; J3490; J7030; J7040; J7060

== ENCOUNTER 2021-08-13 10:27 | Inpatient (IN) | payer MEDICARE, MEDICAID, SELFPAY ==
[2021-08-13] VITALS (14 sets, daily range): BP systolic 92–133; BP diastolic 59–84; PULSE 109–152; RESP 15–24; TEMP 36.4–37.2; O2SAT 87–99; BMI 32.9
--- NOTE | 2021-08-13 10:33 | XR_ITS ---
WS: [id number] XR chest 1V portable [id number] REASON FOR EXAM: dyspnea/cough FINDINGS: There are interstitial infiltrative changes in both lung bases, most prominent on the left. There is some blunting of the right costophrenic angle and blunting of the left costophrenic angle as well. Th ere is significant cardiomegaly. XR/XR chest 1V portable [id number] IMPRESSION: Findings most suggestive of congestive heart failure, less likely pneumonitis.
--- NOTE | 2021-08-13 10:34 | ECG_ITS ---
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1955 Requested By: Luther Moreno Order Number: [id number] Reading MD: CHRIS BUSTAMANTE Measurements Intervals [place] Rate: 151 P: [place]: QRS: 102 QRSD: 90 T: 90 QT: 283 QTc: 450 Interpretive Statements ATRIAL FIBRILLATION WITH RAPID VENTRICULAR RESPONSE RIGHT AXIS DEVIATION [QRS AXIS > 100] LOW QRS VOLTAGE [QRS DEFLECTION < 0.5/1.0 mV IN LIMB/CHEST LEADS] ANTEROSEPTAL MYOCARDIAL INFARCTION , PROBABLY OLD [40+ ms Q WAVE IN V1-V4] CRITICAL TEST RESULT Compared to ECG 08/23/2020 08:42:11 Right-axis deviation now present Low QRS voltage now present Myocardial infarct finding still present Electronically Signed On 08-13-2021 19:27:40 CDT by CHRIS BUSTAMANTE [id number] f
[2021-08-13 10:44] LABS: Basophils # 0.1 10^3/uL (0.0-0.1); Basophils % 1.6 %; Eosinophils % 0.9 %; Hematocrit 40.9 % (42.0-52.0); Hemoglobin 12.8 g/dL (11.7-16.6); Lymphocytes # 1.2 10^3/uL (0.8-4.8); Lymphocytes % 26.6 %; Mean Corpuscular HGB Conc 31.3 g/dL (30.0-36.0); Mean Corpuscular Hemoglobin 25.3 pg (28.0-34.0); Mean Platelet Volume 10.7 fL (7.4-10.4); Monocytes # 0.6 10^3/uL (0.2-0.9); Monocytes % 12.6 %; Neutrophils # 2.53 10^3/uL (1.8-7.7); Neutrophils % 58.1 %; Nucleated Red Blood Cells % 0 %; Platelet Count 163 10^3/cmm (130-400); Red Blood Count 5.05 10^6/uL (4.1-5.3); Red Cell Distribution Width 17.5 % (12.1-15.1); White Blood Count 4.4 10^3/uL (4.0-10.0)
[2021-08-13] MEDS: FUROsemide 10 mg/mL SDV 4mL 60 MG IVP (10:52)
[2021-08-13 11:08] LABS: Troponin(5th) Baseline 18 ng/L (0-15)
[2021-08-13 11:15] LABS: Alanine Aminotransferase 16 U/L (0-41); Albumin Level 3.5 g/dL (3.5-5.2); Alkaline Phosphatase 78 IU/L (40-130); Anion Gap 19.1 (5-19); Aspartate Amino Transferase 29 U/L (0-40); Blood Urea Nitrogen 18 mg/dL (8-23); Calcium 9.2 mg/dL (8.5-10.5); Carbon Dioxide 20 mmol/L (22-29); Chloride 96 mmol/L (98-107); Creatine Phosphokinase 75 U/L (39-308); Globulin 3.2 g/dL (1.3-4.6); Glomerular Filtration Rate 55.4 mL/min (90-130); Glucose 89 mg/dL (65-115); NT Pro B Type Natriuretic Pept 6365 pg/mL (0-125); Osmolality Calculated 271 mOsm/kg (285-295); Potassium 5.1 mmol/L (3.5-5.1); Sodium 130 mmol/L (136-145); Total Bilirubin 1.4 mg/dL (0.15-1.2); Total Protein 6.7 g/dL (6.6-8.7)
[2021-08-13 11:17] LABS: ABG PCO2 31.2 mmHg (35-45); ABG PH Result 7.43 (7.35-7.45); Arterial Blood Gas Hematocrit 37.7 % (42-52); Base Excess ABG -2.6 mmol/L (-2.0-2.0); Blood Gas Allen Test Pos; Blood Gas Sample Type Arterial; Carboxyhemoglobin 1.3 %THgb (0.4-20.1); HCO3 ABG 20.8 mmol/L (22-26); HGB O2 Sat 89.9 % (95-100); Ionized Calcium Level - ABG 1.2 mmol/L (1.1-1.4); Methemoglobin 0.7 % (0.4-1.5); Oxygen Saturation ABG 91.8; PO2 ABG 61.7 mmHg (80.0-100.0); Potassium Level - ABG 4.4 mmol/L (3.5-5.0); Total Hemoglobin 12.3 g/dL (14-18)
[2021-08-13 11:19] LABS: Alveolar-Arterial Oxygen Gradi 16.5 mmHg (5-10); Blood Gas Operator Identificat ED; Blood Gas Sample Site Radial, left; Oxygen Device NC
--- NOTE | 2021-08-13 11:49 | ED_ITS ---
HPI - Arrhythmia/Palpitations General: Chief Complaint: Arrhythmia/Palpitations Stated Complaint: LOW O2 SAT Time Seen by Provider: 08/13/21 10:33 History of Present Illness: HPI narrative: 66-year-old male presents emergency room complaining of shortness of breath and irregular heartbeat. He reports a 40 pound weight gain in the last week to 2 weeks and was seen this morning at [facility] and referred here. He has a history of atrial fibri llation congestive heart failure. He denies any chest pain. He notes a significant amount of swelling the last 2 weeks building up. Markedly short of breath with any activity and severely orthopneic MD complaint: rapid heart beat, heart racing and atrial fibrillation Onset (ago): week(s) Duration: constant Severity: moderate Arrhythmia history: atrial fibrillation Associated symptoms: Reports cough, diaphoresis and short of breath; Deny anxiety, muscle cramps, nausea, paresthesias, pre-syncope, sense of impending doom, syncope or vomiting Review of Systems Const: Reports: diaphoresis ENMT: Denies: throat pain, ear or mastoid pain, nasal discharge or nasal congestion Card: Denies: syncope or pre-syncope Resp: Denies: dyspnea, productive cough or non-productive cough GI: Denies: nausea or vomiting : Denies: flank pain, dysuria, urinary frequency or urinary urgency Musc: Denies: muscle cramps Skin/Breast: Denies: rash or pruritus Psych: Denies: anxiety [facility] ED PFSH: Medical History Anticoagulation adequate with anticoagulant therapy Xarelto Atrial fibrillation Converted to sinus rhythm after given amiodarone. Will discharge on amiodarone with follow-up to cardiology. 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 Surgical History History of hernia repair Status post thoracic aortic aneurysm repair Family History Father CAD (coronary artery disease) Myocardial infarction Other Cancer Social History Smoking and tobacco status: former smoker Quit status (tobacco): has quit using tobacco Year quit tobacco: 1979 - 0.5 PPD x 8 Years Second hand smoke exposure: Yes Smoking risk assessment/counseling performed?: No Alcohol intake: current Alcohol intake frequency: holidays/special occasions only Desire information about alcohol rehabilitation?: No Counseling given: No Lives independently: Yes Household members: none Marital status: service: No Current occupational status: disabled Pets and animals: Yes History of recent travel: No Current gender identity: Male Physical Exam Const: COMMON NORMALS: no acute distress GENERAL APPEARANCE: cooperative and comfortable ORIENTATION/CONSCIOUSNESS: Yes awake, Yes oriented to person, Yes oriented to place and Yes oriented to time HENMT: COMMON NORMALS: normocephalic, atraumatic and hearing grossly normal bilaterally HEAD & SCALP: normocephalic and atraumatic Resp: COMMON NORMALS: normal respiratory effort, No retractions and No use of accessory muscles AUSCULTATION: crackles Laterality: bilateral Cardio: RATE: tachycardic RHYTHM: abnormal rhythm irregularly irregular GI: COMMON NORMALS: Soft to palpation and No hepatosplenomegaly present AUSCULTATION: Yes normoactive bowel sounds PALPATION: Yes Soft to palpation, No Tenderness to palpation present (GI), No Guarding due to palpation present (GI) and Yes No hepatosplenomegaly present Extremity: OTHER: Anasarca at the level of the nipple line anteriorly into the mid scapular region posteriorly. Neuro: SENSORIUM/ORIENTATION: Yes oriented to person, Yes oriented to place and Yes oriented to time Course Vital Signs: Vital signs: Vital Signs Temperature 98.9 F 08/13/21 10:36 Pulse Rate 121 H 08/13/21 13:18 Respiratory Rate 16 08/13/21 13:18 Blood Pressure 101/59 08/13/21 13:18 Pulse Oximetry 97 08/13/21 13:18 MDM - Arrhythmia/Palpitations Lab Data: Labs: Lab Results 08/13/21 08/13/21 08/13/21 Range/Units 10:34 10:34 10:34 WBC 4.4 (4.0-10.0) 10^3/ uL RBC 5.05 (4.1-5.3) 10^6/u L Hgb 12.8 (11.7-16.6) g/dL Hct 40.9 L (42.0-52.0) % MCV 81.0 (80-94) fl MCH 25.3 L (28.0-34.0) pg MCHC 31.3 (30.0-36.0) g/dL RDW 17.5 H (12.1-15.1) % Plt Count 163 (130-400) 10^3/c mm MPV 10.7 H (7.4-10.4) fL Neut % (Auto) 58.1 % Lymph % (Auto) 26.6 % [place] % (Auto) 12.6 % Eos % (Auto) 0.9 % Baso % (Auto) 1.6 % Neut # (Auto) 2.53 (1.8-7.7) 10^3/u L Lymph # (Auto) 1.2 (0.8-4.8) 10^3/u L [place] # (Auto) 0.6 (0.2-0.9) 10^3/u L Eos # (Auto) 0.0 (0.0-0.8) 10^3/u L Baso # (Auto) 0.1 (0.0-0.1) 10^3/u L Nucleated RBC % (a uto) 0 % Nucleated RBCs # 0.0 /100WBC Specimen Type Sample Site ABG pH (7.35-7.45) ABG pCO2 (35-45) mmHg ABG pO2 (80.0-100.0) mmH g ABG HCO3 (22-26) mmol/L ABG O2 Saturation ABG Base Excess (-2.0-2.0) mmol/ L Zana Test A-a O2 Gradient (5-10) mmHg Hematocrit (42-52) % Hgb O2 Saturation (95-100) % Carboxyhemoglobin (0.4-20.1) %THgb Methemoglobin (0.4-1.5) % Total Hemoglobin (14-18) g/dL Ionized Calcium (1.1-1.4) mmol/L O2 Delivery Device O2 Liters/Min % FiO2 % Working Foreman ID Sodium 130 L (136-145) mmol/L Potassium 5.1 (3.5-5.1) mmol/L Chloride 96 L (98-107) mmol/L Carbon Dioxide 20 L (22-29) mmol/L Anion Gap 19.1 H (5-19) BUN 18 (8-23) mg/dL Creatinine 1.3 H (0.7-1.2) mg/dL GFR Calculation 55.4 L (90-130) mL/min Glucose 89 (65-115) mg/dL Calculated Osmolal ity 271 L (285-295) mOsm/k g Calcium 9.2 (8.5-10.5) mg/dL Total Bilirubin 1.4 H (0.15-1.2) mg/dL AST 29 (0-40) U/L ALT 16 (0-41) U/L Alkaline Phosphata se 78 (40-130) IU/L Creatine Kinase 75 (39-308) U/L Troponin T Baselin e 18 H (0-15) ng/L NT-Pro-B Natriuret Pep 6365 H (0-125) pg/mL Total Protein 6.7 (6.6-8.7) g/dL Albumin 3.5 (3.5-5.2) g/dL Globulin 3.2 (1.3-4.6) g/dL 08/13/21 Range/Units 11:08 WBC (4.0-10.0) 10^3/ uL RBC (4.1-5.3) 10^6/u L Hgb (11.7-16.6) g/dL Hct (42.0-52.0) % MCV (80-94) fl MCH (28.0-34.0) pg MCHC (30.0-36.0) g/dL RDW (12.1-15.1) % Plt Count (130-400) 10^3/c mm MPV (7.4-10.4) fL Neut % (Auto) % Lymph % (Auto) % [place] % (Auto) % Eos % (Auto) % Baso % (Auto) % Neut # (Auto) (1.8-7.7) 10^3/u L Lymph # (Auto) (0.8-4.8) 10^3/u L [place] # (Auto) (0.2-0.9) 10^3/u L Eos # (Auto) (0.0-0.8) 10^3/u L Baso # (Auto) (0.0-0.1) 10^3/u L Nucleated RBC % (a uto) % Nucleated RBCs # /100WBC Specimen Type Arterial Sample Site Radial, left ABG pH 7.43 (7.35-7.45) ABG pCO2 31.2 L (35-45) mmHg ABG pO2 61.7 L (80.0-100.0) mmH g ABG HCO3 20.8 L (22-26) mmol/L ABG O2 Saturation 91.8 ABG Base Excess -2.6 L (-2.0-2.0) mmol/ L Zana Test Pos A-a O2 Gradient 16.5 H (5-10) mmHg Hematocrit 37.7 L (42-52) % Hgb O2 Saturation 89.9 L (95-100) % Carboxyhemoglobin 1.3 (0.4-20.1) %THgb Methemoglobin 0.7 (0.4-1.5) % Total Hemoglobin 12.3 L (14-18) g/dL Ionized Calcium 1.2 (1.1-1.4) mmol/L O2 Delivery Device Nc O2 Liters/Min 3.0 % FiO2 32.0 % Working Foreman ID Ed Sodium 130.0 L (136-145) mmol/L Potassium 4.4 (3.5-5.1) mmol/L Chloride (98-107) mmol/L Carbon Dioxide (22-29) mmol/L Anion Gap (5-19) BUN (8-23) mg/dL Creatinine (0.7-1.2) mg/dL GFR Calculation (90-130) mL/min Glucose 92.0 (65-115) mg/dL Calculated Osmolal ity (285-295) mOsm/k g Calcium (8.5-10.5) mg/dL Total Bilirubin (0.15-1.2) mg/dL AST (0-40) U/L ALT (0-41) U/L Alkaline Phosphata se (40-130) IU/L Creatine Kinase (39-308) U/L Troponin T Baselin e (0-15) ng/L NT-Pro-B Natriuret Pep (0-125) pg/mL Total Protein (6.6-8.7) g/dL Albumin (3.5-5.2) g/dL Globulin (1.3-4.6) g/dL Discharge Plan Discharge Patient Disposition: Admitted As Inpatient Admit Provider: Brando Cazares Clinical Impression: Atrial fibrillation, CHF (congestive heart failure) Condition: Stable Coding Level of Care Code ED Coroner Forensic Technician for Chg Fwd Exam Comprehensive
[2021-08-13] MEDS: esmolol drip 2,500 MG/250 ML PREMIX 32.11 MG IV (11:58)
--- NOTE | 2021-08-13 12:34 | ECG_ITS ---
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1955 Requested By: Luther Moreno Order Number: [id number] Reading MD: CHRIS BUSTAMANTE Measurements Intervals [place] Rate: 129 P: [place]: QRS: 91 QRSD: 99 T: 84 QT: 314 QTc: 460 Interpretive Statements ATRIAL FIBRILLATION WITH RAPID VENTRICULAR RESPONSE BORDERLINE RIGHT AXIS DEVIATION [QRS AXIS > 90] LOW QRS VOLTAGE [QRS DEFLECTION < 0.5/1.0 mV IN LIMB/CHEST LEADS] ANTEROSEPTAL MYOCARDIAL INFARCTION , OF INDETERMINATE AGE [40+ ms Q WAVE IN V1-V4] Compared to ECG 08/13/2021 10:35:03 No significant changes Electronically Signed On 08-13-2021 19:28:33 CDT by CHRIS BUSTAMANTE [id number]
[2021-08-13 12:59] LABS: Troponin 5 2HR 15.53 ng/L (0-15)
[2021-08-13 13:07] LABS: Troponin 5 2HR Delta -2.47 ABS# (0-10)
--- NOTE | 2021-08-13 14:17 | PM.HP ---
Providers/Chief Complaint Admitting Physician: Brando Cazares MD Primary Care Provider: ALEJA Oropeza Chief Complaint: LOW O2 SAT History of Present Illness Lidia Ruvalcaba is a 66 year old male with past medical history of COPD not on home oxygen, obstructive sleep apnea on CPAP, heart failure with reduced ejection fraction , A. fib on Xarelto, hypertension, came in with chief complaint of worsening swelling all over the body, and markedly increased weight gain, shortness of breath on exertion. Denies any chest pain, fever , cough. Upon arrival in the ER he was worked up for above-mentioned complaint: Imaging studies: X-ray chest: interstitial infiltrative changes in both lung bases, most prominent on the left, suggestive of congestive heart failure. EKG: A. fib with RVR (rate ranging from 130s to 140s ) Pertinent labs: WBC 4.4 H&H 12.8/40.9, platelet count: 163, serum sodium 130 serum potassium 5.1, BUN/ serum creatinine:18/1.3. Troponin: Baseline 18 2-hour 15.33: 2-hour delta:- 2.47 , proBNP:6365. Patient received Lasix 60 mg IV x1 dose in the , diltiazem 10 mg IV x1 dose , was started on esmolol drip. Review of Systems Const: Denies: fever(s), chills, body aches or diaphoresis Resp: Denies: productive cough, wheezing or pain on inspiration GI: Denies: abdominal pain, nausea, vomiting, diarrhea or constipation : Denies: flank pain Musc: Denies: back pain, extremity pain or extremity swelling Neuro: Denies: headache(s) or confusion Medications/Allergies Home Medications Medication Instructions Recorded Confirmed Last Taken Type irbesartan 150 mg tablet 150 mg PO DAILY 12/27/19 08/13/21 08/13/21 History pantoprazole 40 mg tablet,delayed 40 mg PO DAILY 12/27/19 08/13/21 08/13/21 History release simvastatin 20 mg tablet 20 mg PO DAILY 12/27/19 08/13/21 08/13/21 History montelukast 10 mg PO DAILY 08/20/20 08/13/21 08/13/21 History amiodarone 200 mg tablet 200 mg PO DAILY #90 tab 04/14/21 08/13/21 08/13/21 Rx amlodipine 10 mg tablet 10 mg PO DAILY #90 tab 04/14/21 08/13/21 08/13/21 Rx rivaroxaban 20 mg tablet 20 mg PO DAILY #90 tab 04/14/21 08/13/21 08/13/21 Rx tiotropium 2.5 mcg-olodaterol 2.5 2 puff INHALATION DAILY #4 g 04/14/21 08/13/21 08/13/21 Rx mcg/actuation mist for inhalation Allergies Allergy/AdvReac Type Severity Reaction Status Date / Time No Known Allergies Allergy Verified 04/14/21 14:05 PFSH Acute PFSH: Medical History Anticoagulation adequate with anticoagulant therapy Xarelto Atrial fibrillation Converted to sinus rhythm after given amiodarone. Will discharge on amiodarone with follow-up to cardiology. 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 Surgical History History of hernia repair Status post thoracic aortic aneurysm repair Family History Father CAD (coronary artery disease) Myocardial infarction Other Cancer Social History Smoking and tobacco status: former smoker Quit status (tobacco): has quit using tobacco Year quit tobacco: 1980 - 0.5 PPD x 8 Years Second hand smoke exposure: Yes Smoking risk assessment/counseling performed?: No Alcohol intake: current Alcohol intake frequency: holidays/special occasions only Desire information about alcohol rehabilitation?: No Counseling given: No Lives independently: Yes Household members: none Marital status: service: No Current occupational status: disabled Pets and animals: Yes History of recent travel: No Current gender identity: Male Vitals/I&O/Wt Last Vital Signs Temp 98.9 F 08/13/21 10:36 Pulse 121 H 08/13/21 13:18 Resp 16 08/13/21 13:18 BP 101/59 08/13/21 13:18 Pulse Ox 97 08/13/21 13:18 08/12/21 08/13/21 08/13/21 22:59 06:59 14:59 Intake Total 12.625 / 12.625 Balance 12.625 / 12.625 Weight last 48 hrs Weight 107.048 kg Physical Exam Const: COMMON NORMALS: patient oriented x3 HENMT: COMMON NORMALS: normocephalic and atraumatic HEAD & SCALP: normocephalic and atraumatic Resp: COMMON NORMALS: clear to auscultation bilaterally EFFORT & INSPECTION: Yes symmetric chest movement AUSCULTATION: clear to auscultation bilaterally Cardio: COMMON NORMALS: No gallops present (Cardio) and No rub (Cardio) OTHER: S1-S2 variable intensity,No MRG GI: COMMON NORMALS: Normal to inspection, nondistended, normoactive bowel sounds present, Soft to palpation, non-tender, No hepatosplenomegaly present and no masses AUSCULTATION: Yes normoactive bowel sounds PALPATION: Yes Soft to palpation and Yes No hepatosplenomegaly present RECTAL EXAM: Yes deferred Extremity: NARRATIVE EXTREMITY EXAM: 3+ pitting edema up to the level of mid abdomen Neuro: COMMON NORMALS: patient oriented x3 Data : 08/13/21 10:34 08/13/21 10:34 A&P Assessment and plan (1) CHF (congestive heart failure): Decompensated heart failure with reduced ejection fraction. 2D echo: 07/2020: Normal LV size with reduced ejection fraction EF around 40%, diffuse hypokinesia of left ventricle, mildly dilated RV Rdeu-av-rggarpgm tricuspid valve regurgitation.Mild mitral and trace of aortic regurgitation. Moderate pulmonic regurgitation with a dilated pulmonary artery Moderate pulmonary hypertension with estimated pulmonary artery peak systolic pressure of 50 mmHg. Follow repeat 2D echo Lasix 80 mg IV twice daily Intake output charting Daily weight K>4, MG>2 Cardiac diet Telemetry Status: Acute (2) Atrial fibrillation: Atrial fibrillation with RVR: Patient has been in normal sinus rhythm as an outpatient and is on amiodarone p.o. He has been on full anticoagulation. Continue amnio drip Status: Acute (3) Hyponatremia: Hypervolemic hyponatremia. 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 Anticipated length of stay greater than 2 midnights Coding Level of Care Code Acute Senior Accounts Payable Specialist for Chg Fwd Diagnoses CHF (congestive heart failure) I50.9 Atrial fibrillation I48.91 Hyponatremia E87.1 CKD (chronic kidney disease) stage 3, GFR 30-59 ml/min N18.30 Hypertension I10 COPD (chronic obstructive pulmonary disease) J44.9 COPD type: unspecified COPD WENDI (obstructive sleep apnea) G47.33 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
[2021-08-13 16:05] LABS: Add Urine Microscopic? NO; Charge for UA Resulting for Rev
--- NOTE | 2021-08-13 16:24 | PC.NURSE ---
extreme edema to penis and scrotum. edema manipulated to barely expose meatus. after bladder scan done with greater than 500 ml. 16 fr. villagran inserted with difficulty getting into bladder. after considerable pressure urine obtained. specimen to lab.
[2021-08-13 16:29] LABS: Bilirubin Urine Neg (Negative); Blood Urine Neg (Negative); Glucose Urine UA Norm (Normal); Ketones Urine Negative (Negative); Leukocyte Esterase Urine Negative (Negative); Nitrate Urine Negative (Negative); Protein Urine Neg (Negative); Specific Gravity, Urine 1.015 (1.005-1.030); Urine Appearance Clear (CLEAR); Urine Color Yellow (Yellow); Urobilinogen Urine Norm (Negative); pH Urine 5 (5-7)
--- NOTE | 2021-08-13 16:34 | ECG_ITS ---
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: : 1955 Requested By: Luther Moreno Order Number: [id number] Reading MD: CHRIS BUSTAMANTE Measurements Intervals [place] Rate: 141 P: [place]: QRS: 89 QRSD: 89 T: 0 QT: 301 QTc: 461 Interpretive Statements ATRIAL FIBRILLATION WITH RAPID VENTRICULAR RESPONSE LOW QRS VOLTAGE [QRS DEFLECTION < 0.5/1.0 mV IN LIMB/CHEST LEADS] ANTEROSEPTAL MYOCARDIAL INFARCTION , PROBABLY OLD [40+ ms Q WAVE IN V1-V4] Compared to ECG 08/13/2021 12:26:13 No significant changes Electronically Signed On 08-13-2021 19:28:05 CDT by CHRIS BUSTAMANTE [id number]
[2021-08-13 17:21] LABS: Troponin 5 6HR 18.07 ng/L (0-15); Troponin 5 6HR Delta 0.07 ng/L (0-12)
--- NOTE | 2021-08-13 17:29 | PC.NURSE ---
remains in a-fib rate 130s
--- NOTE | 2021-08-13 19:39 | PC.NURSE ---
pt off monitor. some d/t cuff being left off and not sure why early adm. v/s didnt record.
[2021-08-13] MEDS: FUROsemide 10 mg/mL SDV 10mL 80 MG IVP (19:58)
[2021-08-14] VITALS (19 sets, daily range): BP systolic 90–126; BP diastolic 59–83; PULSE 81–135; RESP 16–26; TEMP 36.4–36.8; O2SAT 90–95
[2021-08-14 04:06] LABS: Basophils # 0.1 10^3/uL (0.0-0.1); Basophils % 0.6 %; Eosinophils % 0.2 %; Hematocrit 39.5 % (42.0-52.0); Hemoglobin 12.5 g/dL (11.7-16.6); Lymphocytes # 0.8 10^3/uL (0.8-4.8); Lymphocytes % 10.2 %; Mean Corpuscular HGB Conc 31.6 g/dL (30.0-36.0); Mean Corpuscular Hemoglobin 24.9 pg (28.0-34.0); Mean Corpuscular Volume 78.5 fl (80-94); Mean Platelet Volume 10.8 fL (7.4-10.4); Monocytes # 0.7 10^3/uL (0.2-0.9); Monocytes % 9.1 %; Neutrophils # 6.51 10^3/uL (1.8-7.7); Neutrophils % 79.7 %; Nucleated Red Blood Cells % 0 %; Platelet Count 150 10^3/cmm (130-400); Red Blood Count 5.03 10^6/uL (4.1-5.3); Red Cell Distribution Width 17.3 % (12.1-15.1); White Blood Count 8.2 10^3/uL (4.0-10.0)
[2021-08-14 04:26] LABS: Alanine Aminotransferase 18 U/L (0-41); Alkaline Phosphatase 72 IU/L (40-130); Anion Gap 16.4 (5-19); Aspartate Amino Transferase 29 U/L (0-40); Blood Urea Nitrogen 22 mg/dL (8-23); Calcium 9.3 mg/dL (8.5-10.5); Carbon Dioxide 23 mmol/L (22-29); Chloride 97 mmol/L (98-107); Globulin 3.7 g/dL (1.3-4.6); Glomerular Filtration Rate 50.9 mL/min (90-130); Glucose 95 mg/dL (65-115); Magnesium 1.9 mg/dL (1.7-2.3); Osmolality Calculated 277 mOsm/kg (285-295); Potassium 4.4 mmol/L (3.5-5.1); Sodium 132 mmol/L (136-145); Total Bilirubin 1.8 mg/dL (0.15-1.2); Total Protein 6.7 g/dL (6.6-8.7)
[2021-08-14] MEDS: FUROsemide 10 mg/mL SDV 10mL 80 MG IVP (08:59)
[2021-08-14] MEDS: rivaroxaban 10 mg Tablet 20 MG PO (09:00)
[2021-08-14] MEDS: montelukast sodium 10 mg Tablet PO (09:00)
[2021-08-14] MEDS: pantoprazole DR 40 mg Tablet PO (09:00)
[2021-08-14] MEDS: atorvastatin 40 mg Tablet 20 MG PO (09:00)
[2021-08-14] MEDS: NON-FORMULARY MEDICATION (Tiotropium-Olodaterol [Stiolto Respimat] 2.5-2.5 mcg/actuation m 2 EACH INHALATION (11:00)
[2021-08-14] MEDS: oxyCODONE-APAP 5-325 mg Tablet 1 TAB PO (11:18)
--- NOTE | 2021-08-14 12:30 | PM.PN ---
Subjective Subjective: Interval history: Patient was seen and examined this morning, he is doing fine, denies any chest pain shortness of breath.Good urine output to Lasix: Continues to be in A. fib with RVR with rate at bouncing anywhere from 100 to 130s Medications: Reviewed: Yes Vitals/I&O/Wt Last Vital Signs Temp 97.7 F 08/14/21 08:00 Pulse 104 H 08/14/21 09:05 Resp 24 H 08/14/21 11:18 BP 113/77 08/14/21 08:00 Pulse Ox 94 08/14/21 11:18 08/13/21 08/14/21 08/14/21 22:59 06:59 14:59 Intake Total 435.8 / 448.425 360 / 808.425 350 / 350 Output Total 1300 / 1300 1500 / 2800 375 / 375 Balance -864.2 / -851.575 -1140 / -1991.575 -25 / -25 Weight last 48 hrs Weight 103.447 kg Weight 107.048 kg Physical Exam Const: COMMON NORMALS: patient oriented x3 HENMT: COMMON NORMALS: normocephalic and atraumatic HEAD & SCALP: normocephalic and atraumatic Resp: COMMON NORMALS: clear to auscultation bilaterally EFFORT & INSPECTION: Yes symmetric chest movement AUSCULTATION: clear to auscultation bilaterally Cardio: COMMON NORMALS: No gallops present (Cardio) and No rub (Cardio) OTHER: S1-S2 variable intensity,No MRG GI: COMMON NORMALS: Normal to inspection, nondistended, normoactive bowel sounds present, Soft to palpation, non-tender, No hepatosplenomegaly present and no masses AUSCULTATION: Yes normoactive bowel sounds PALPATION: Yes Soft to palpation and Yes No hepatosplenomegaly present RECTAL EXAM: Yes deferred Extremity: NARRATIVE EXTREMITY EXAM: 3+ pitting edema up to the level of mid abdomen Neuro: COMMON NORMALS: patient oriented x3 Data : 08/14/21 03:36 08/14/21 03:36 A&P Assessment and plan (1) CHF (congestive heart failure): Decompensated heart failure with reduced ejection fraction. 2D echo: 07/2020: Normal LV size with reduced ejection fraction EF around 40%, diffuse hypokinesia of left ventricle, mildly dilated RV [id number] tricuspid valve regurgitation.Mild mitral and trace of aortic regurgitation. Moderate pulmonic regurgitation with a dilated pulmonary artery Moderate pulmonary hypertension with estimated pulmonary artery peak systolic pressure of 50 mmHg. Follow repeat 2D echo Lasix 80 mg IV in am Lasix 40 mg IV p.m. Intake output charting Daily weight K>4, MG>2 Cardiac diet Telemetry Status: Acute (2) Atrial fibrillation: Atrial fibrillation with RVR: Patient has been in normal sinus rhythm as an outpatient and is on amiodarone p.o. He has been on full anticoagulation. Continue amnio drip Metoprolol Tartrate 25 mg po q6 h daily Status: Acute (3) Hyponatremia: Hypervolemic hyponatremia. 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: Status: Acute Additional A&P Information CODE STATUS: Full code DVT prophylaxis: Not needed on Xarelto Attestations Medical Necessity Statement*: Patient needs to be in hospital for the management of A.fib with RVR as well as decompensated H/F Coding Level of Care Code Acute Geology Technician for [facility] Fwd Exam Detailed Diagnoses CHF (congestive heart failure) I50.9 Atrial fibrillation I48.91 Hyponatremia E87.1 CKD (chronic kidney disease) stage 3, GFR 30-59 ml/min N18.30 Hypertension I10 COPD (chronic obstructive pulmonary disease) J44.9 COPD type: unspecified COPD WENDI (obstructive sleep apnea) G47.33 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
[2021-08-14] MEDS: metoprolol tartrate 25 mg Tablet PO ×2 (13:37→18:22)
--- NOTE | 2021-08-14 16:00 | PC.NURSE ---
Amiodarone gtt rate changed to 1mg/min as ordered by Dr Cobb. MAR does not reflect this change at this time, unable to correct in MAR .
--- NOTE | 2021-08-14 16:19 | PM.CONSULT ---
Providers/Reason For Consult Consulting Physician/Specialty*: Dr. Cobb, cardiology Reason for Consult*: A. fib with RVR, CHF Attending Physician: Brando Cazares MD Primary Care Provider: ALEJA Oropeza History of Present Illness History of Present Illness Lidia Ruvalcaba is a 66 year old male with past medical history of hypertension, dyslipidemia, heart failure with reduced ejection fraction (LVEF=40%), RV dysfunction,gastroesophageal reflux disease, paroxysmal atrial fibrillation on amiodarone 200 mg a day and Xarelto, COPD, h/o thoracoabdominal aneurysm repair, obstructive sleep apnea noncompliant with CPAP and obesity. He presented to the ER on 13 August with shortness of breath and irregular heartbeat and 40 pound weight gain in last 2 weeks. EKG on admission shows atrial fibrillation with rapid ventricular response with heart rate at 151 bpm. Right axis deviation low QRS voltage and possible old anteroseptal infarct. Baseline troponin T of 18 at 2 hours of 15 and at 6 hours of 18. NT proBNP of 6365. BUN 18, creatinine 1.3, sodium 130 and potassium 5.1. CO2 20 on admission. He was started on IV Lasix and his urine output has been good. He continues to be in A. fib with RVR. I have been asked to assist in evaluating further management. Patient is a very poor historian. He lives by himself and arranges his own pills. Review of Systems General: Reports: 10 or more systems reviewed and unremarkable except in HPI and below Const: Denies: fever(s), chills, body aches or diaphoresis Card: Reports: edema, swelling of feet/ankles and dyspnea on exertion; Denies: chest pain or lightheadedness Resp: Denies: productive cough, wheezing or pain on inspiration GI: Denies: abdominal pain, nausea, vomiting, diarrhea or constipation : Denies: flank pain Musc: Denies: back pain, extremity pain or extremity swelling Neuro: Denies: headache(s) or confusion Agustin/Lymph: Denies: petechiae or purpura Meds/Allergies Home Medications and Allergies Home Medications Medication Instructions Recorded Confirmed Last Taken Type irbesartan 150 mg tablet 150 mg PO DAILY 12/27/19 08/13/21 08/13/21 History pantoprazole 40 mg tablet,delayed 40 mg PO DAILY 0108/13/21 08/13/21 History release simvastatin 20 mg tablet 20 mg PO DAILY 12/27/19 08/13/21 08/13/21 History montelukast 10 mg PO DAILY 08/20/20 08/13/21 08/13/21 History amiodarone 200 mg tablet 200 mg PO DAILY #90 tab 04/14/21 08/13/21 08/13/21 Rx amlodipine 10 mg tablet 10 mg PO DAILY #90 tab 04/14/21 08/13/21 08/13/21 Rx rivaroxaban 20 mg tablet 20 mg PO DAILY #90 tab 04/14/21 08/13/21 08/13/21 Rx tiotropium 2.5 mcg-olodaterol 2.5 2 puff INHALATION DAILY #4 g 04/14/21 08/13/21 08/13/21 Rx mcg/actuation mist for inhalation Allergies Allergy/AdvReac Type Severity Reaction Status Date / Time No Known Allergies Allergy Verified 04/14/21 14:05 Current Medications Current Medications Generic Name Dose Route Start Last Admin Trade Name Freq PRN Reason Stop Dose Admin Atorvastatin Calcium 20 mg 08/14/21 09:00 08/14/21 09:00 Atorvastatin 40 Mg Tablet PO 20 mg DAILY HERMINIO Administration Amiodarone HCl 900 mg/ 518 mls @ 0 mls/hr 08/13/21 14:15 08/13/21 22:30 Dextrose/ IV Miscellaneous IV 0.5 mg/min Supplies .Q0M HERMINIO 17.27 mls/hr Titration Protocol Per Protocol Metoprolol Tartrate 25 mg 08/14/21 13:15 08/14/21 13:37 Metoprolol Tartrate 25 Mg Tablet PO 25 mg Q6H HERMINIO Administration Montelukast Sodium 10 mg 08/14/21 09:00 08/14/21 09:00 Montelukast Sodium 10 Mg Tablet PO 10 mg DAILY HERMINIO Administration Non-Formulary Medication 2 puff 08/14/21 11:30 08/14/21 11:00 Tiotropium-Olodaterol [Stiolto Respimat] INHALATION 2 puff DAILY HERMINIO Administration Oxycodone/Acetaminophen 1 tab 08/13/21 14:05 08/14/21 11:18 Oxycodone-Apap 5-325 Mg Tablet PO 1 tab Q4H PRN Administration SEVERE PAIN Pantoprazole Sodium 40 mg 08/14/21 09:00 08/14/21 09:[address] 40 Mg Tablet PO 40 mg DAILY HERMINIO Administration Rivaroxaban 20 mg 08/14/21 09:00 08/14/21 09:00 Rivaroxaban 10 Mg Tablet PO 20 mg DAILY HERMINIO Administration PFSH Acute PFSH: Medical History Anticoagulation adequate with anticoagulant therapy Xarelto Atrial fibrillation Converted to sinus rhythm after given amiodarone. Will discharge on amiodarone with follow-up to cardiology. 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 Surgical History History of hernia repair Status post thoracic aortic aneurysm repair Family History Father CAD (coronary artery disease) Myocardial infarction Other Cancer Social History Smoking and tobacco status: former smoker Quit status (tobacco): has quit using tobacco Year quit tobacco: 1980 - 0.5 PPD x 8 Years Second hand smoke exposure: Yes Smoking risk assessment/counseling performed?: No Alcohol intake: current Alcohol intake frequency: holidays/special occasions only Desire information about alcohol rehabilitation?: No Counseling given: No Lives independently: Yes Household members: none Marital status: service: No Current occupational status: disabled Pets and animals: Yes History of recent travel: No Current gender identity: Male Vitals/I&O/Wt Last Vital Signs Temp 97.7 F 08/14/21 12:00 Pulse 121 H 08/14/21 14:00 Resp 22 H 08/14/21 12:00 BP 126/83 08/14/21 12:00 Pulse Ox 95 08/14/21 12:00 08/14/21 08/14/21 08/14/21 06:59 14:59 22:59 Intake Total 360 / 808.425 850 / 850 Output Total 1500 / 2800 1150 / 1150 Balance -1140 / -1991.575 -300 / -300 Weight last 48 hrs Weight 228 lb 1 oz Weight 236 lb Physical Exam Narrative: EXAM NARRATIVE: GENERAL: Obese man sitting in chair in no acute distress HEENT: Pupils equal round reactive to light. No pallor or icterus. NECK: increased JVD. No carotid bruit. CARDIOVASCULAR SYSTEM: S1-S2 irregular. Tachycardia present. systolic murmur+ RESPIRATORY SYSTEM: Chest clear to auscultation. No wheezes rhonchi or rubs heard. ABDOMEN: Firm and distended, nontender EXTREMITIES: 4+ edema. Anasarca present PUBLICATION DESIGNER: Patient is alert oriented ?3. No focal neurological deficits. Data Other Data: Attestation for Other Data: I personally reviewed and interpreted the following: Other data: Transthoracic echocardiogram 23 August 2020 CONCLUSIONS Normal in size with diminished ejection fraction of around 40%. Diffuse hypokinesia of the left ventricle. Patient was found to be in atrial fibrillation with rapid ventricular rate. Mildly dilated right ventricle with a slightly diminished ejection fraction Mild biatrial enlargement Thickened aortic and mitral valves. [id number] tricuspid valve regurgitation. Mild mitral and trace of aortic regurgitation. Moderate pulmonic regurgitation with a dilated pulmonary artery Moderate pulmonary hypertension with estimated pulmonary artery peak systolic pressure of 50 mmHg There is no pericardial effusion. There are no intracardiac masses. Compared to the study from 07/12/2015, the biatrial enlargement and the drop in the left ventricular ejection fraction are new- possibly related to the arrhythmia. Chest x-ray 13 August 2021 IMPRESSION: Findings most suggestive of congestive heart failure, less likely pneumonitis. A&P Assessment and plan (1) CHF (congestive heart failure): BiV failure: -RV failure with HFrEF -Currently on Lasix 40 IV twice daily. Intake/output charting and daily weight. -Blood pressure soft may need intermittent albumin infusions. -Repeat limited echo. -He will probably benefit from stress testing once euvolemic. Last stress test was almost 10 years back. -I do not believe patient has clear understanding of his medical condition. He tells me that he does not need to use CPAP if his weight is less than 200 and uses a CPAP if his weight is more than 200. He keeps repeating the same thing multiple times. Status: Acute Qualifiers: Heart failure type: combined systolic and diastolic Heart failure chronicity: acute on chronic Qualified Code(s): I50.43 - Acute on chronic combined systolic (congestive) and diastolic (congestive) heart failure (2) Atrial fibrillation: Status: Acute Qualifiers: Atrial fibrillation type: persistent (not longstanding) Qualified Code(s): I48.19 - Other persistent atrial fibrillation (3) Hyperlipidemia: Status: Acute Qualifiers: Hyperlipidemia type: mixed hyperlipidemia Qualified Code(s): E78.2 - Mixed hyperlipidemia (4) Hypertension: History of hypertension on irbesartan and amlodipine at home. -Medications on hold due to soft blood pressure Status: Acute Qualifiers: Hypertension type: essential hypertension Qualified Code(s): I10 - Essential (primary) hypertension (5) WENDI (obstructive sleep apnea): Noncompliant to CPAP. Status: Acute Additional A&P Information Moderate pulmonary hypertension Mild to moderate tricuspid valve regurgitation COPD History of thoracoabdominal aneurysm repair. Chronic kidney disease stage 3: Baseline creatinine 1.3-1.4 Thank you for allowing me to participate in patient's care. Please feel free to call with questions or concerns. 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
[2021-08-14] MEDS: FUROsemide 10 mg/mL SDV 4mL 40 MG IVP (18:23)
--- NOTE | 2021-08-14 19:15 | PC.NURSE ---
Shift Note: Pt has sat up in a chair most of the day. He is yamilet of hearing. He eats well. He still has significant amount of edema, 2+ on his legs and arms. On his trunk 3+ anterior and posteriorly. Scrotal and penile edema noted as well. Urine output of 1300 ml day shift. He has received 80mg of Lasix this am and 40 mgof Lasix this pm. He was started on Metoprolol PO. Amiodarone gtt was increased back to 1mg/min, per Dr Cobb as his heart rate is still around 120, but it is a regular rhythm at this time. Frequent safety and comfort rounds continue. Orders and/or nursing care completed as indicated. Patient monitored for response to intervention and treatment(s). Education provided includes Lasix, amiodarone, metoprolol, edema, keeping fluid off, inhaler use. Patient verbalizes understanding however his questions reveals he needs further education and reinforcement. Will continue to monitor.
[2021-08-15] VITALS (40 sets, daily range): BP systolic 80–131; BP diastolic 57–87; PULSE 88–141; RESP 7–24; TEMP 36.4–37.2; O2SAT 81–97
[2021-08-15] MEDS: metoprolol tartrate 25 mg Tablet PO ×3 (00:25→14:13)
[2021-08-15 05:45] LABS: Basophils % 0.5 %; Eosinophils % 0.7 %; Hemoglobin 12.5 g/dL (11.7-16.6); Mean Corpuscular HGB Conc 31.3 g/dL (30.0-36.0); Mean Corpuscular Hemoglobin 25.1 pg (28.0-34.0); Mean Corpuscular Volume 80.3 fl (80-94); Mean Platelet Volume 10.5 fL (7.4-10.4); Monocytes # 0.7 10^3/uL (0.2-0.9); Monocytes % 11.3 %; Neutrophils % 70.2 %; Nucleated Red Blood Cells % 0 %; Platelet Count 161 10^3/cmm (130-400); Red Blood Count 4.98 10^6/uL (4.1-5.3); Red Cell Distribution Width 17.8 % (12.1-15.1); White Blood Count 5.8 10^3/uL (4.0-10.0)
[2021-08-15 06:10] LABS: Alanine Aminotransferase 15 U/L (0-41); Albumin Level 2.8 g/dL (3.5-5.2); Alkaline Phosphatase 73 IU/L (40-130); Anion Gap 14.4 (5-19); Aspartate Amino Transferase 25 U/L (0-40); Blood Urea Nitrogen 22 mg/dL (8-23); Calcium 8.7 mg/dL (8.5-10.5); Carbon Dioxide 25 mmol/L (22-29); Chloride 95 mmol/L (98-107); Globulin 3.2 g/dL (1.3-4.6); Glucose 98 mg/dL (65-115); Magnesium 1.8 mg/dL (1.7-2.3); Osmolality Calculated 273 mOsm/kg (285-295); Potassium 4.4 mmol/L (3.5-5.1); Sodium 130 mmol/L (136-145); Total Bilirubin 1.3 mg/dL (0.15-1.2)
--- NOTE | 2021-08-15 08:31 | PC.NURSE ---
0730-recd. alert, oriented. assisted up to . and ambulated to room door and back. did acknowledge some shortness of breath after sitting in chair.
[2021-08-15] MEDS: montelukast sodium 10 mg Tablet PO (10:05)
[2021-08-15] MEDS: atorvastatin 40 mg Tablet 20 MG PO (10:05)
[2021-08-15] MEDS: FUROsemide 10 mg/mL SDV 10mL 80 MG IVP (10:06)
[2021-08-15] MEDS: pantoprazole DR 40 mg Tablet PO (10:06)
[2021-08-15] MEDS: rivaroxaban 10 mg Tablet 20 MG PO (10:06)
--- NOTE | 2021-08-15 13:22 | P.PN_ITS ---
Subjective Subjective: Interval history: Patient was seen and examined this morning, seen resting comfortably in bed h/r is better controlled today, amidarone drip has been weaned off he is being transitioned to po Amiodarone. Metoprolol .T dose has been reduced to 25 mg po TID as his blood pressure was soft.Evening dose of lasix has also been held. Medications: Reviewed: Yes Vitals/I&O/Wt Last Vital Signs Temp 97.6 F 08/15/21 10:30 Pulse 98 08/15/21 13:00 Resp 20 H 08/15/21 10:30 BP 80/69 08/15/21 13:00 Pulse Ox 93 08/15/21 13:00 08/14/21 08/15/21 08/15/21 22:59 06:59 14:59 Intake Total 1123.2 / 1973.2 100 / 2073.2 918 / 918 Output Total 150 / 1300 1200 / 2500 Balance 973.2 / 673.2 -1100 / -426.8 918 / 918 Weight last 48 hrs Weight 103.873 kg Weight 103.447 kg Physical Exam Const: COMMON NORMALS: patient oriented x3 HENMT: COMMON NORMALS: normocephalic and atraumatic HEAD & SCALP: no rmocephalic and atraumatic Resp: COMMON NORMALS: clear to auscultation bilaterally EFFORT & INSPECTION: Yes symmetric chest movement AUSCULTATION: clear to auscultation bilaterally Cardio: COMMON NORMALS: No gallops present (Cardio) and No rub (Cardio) OTHER: S1-S2 variable intensity,No MRG GI: COMMON NORMALS: Normal to inspection, nondistended, normoactive bowel sounds present, Soft to palpation, non-tender, No hepatosplenomegaly present and no masses AUSCULTATION: Yes normoactive bowel sounds PALPATION: Yes Soft to palpation and Yes No hepatosplenomegaly present RECTAL EXAM: Yes deferred Extremity: NARRATIVE EXTREMITY EXAM: 3+ pitting edema up to the level of mid abdomen Neuro: COMMON NORMALS: patient oriented x3 Data : 08/15/21 05:16 08/15/21 05:16 A&P Assessment and plan (1) CHF (congestive heart failure): Decompensated heart failure with reduced ejection fraction. 2D echo: 07/2020: Normal LV size with reduced ejection fraction EF around 40%, diffuse hypokinesia of left ventricle, mildly dilated RV [id number] tricuspid valve regurgitation.Mild mitral and trace of aortic regurgitation. Moderate pulmonic regurgitation with a dilated pulmonary artery Moderate pulmonary hypertension with estimated pulmonary artery peak systolic pressure of 50 mmHg. Follow repeat 2D echo Lasix 80 mg IV in am Lasix 40 mg IV p.m. Intake output charting Daily weight K>4, MG>2 Cardiac diet Telemetry Status: Acute (2) Atrial fibrillation: Atrial fibrillation with RVR: Patient has been in normal sinus rhythm as an outpatient and is on amiodarone p.o. He has been on full anticoagulation. Amnio drip stopped Amidarone 200 mg po BID Metoprolol Tartrate 25 mg po q8 h daily Status: Acute (3) Hyponatremia: Hypervolemic hyponatremia. 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 fib with RVR. 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
[2021-08-15] MEDS: oxyCODONE-APAP 10-325 mg Tablet 1 TAB PO (13:25)
--- NOTE | 2021-08-15 14:17 | USCV_ITS ---
Lidia Ruvalcaba Age: 66 Gender: M : 1955 Exam Date: 08/15/2021 15:23 Ordering Phys: Mle Cobb MD ([email or web address]) Technologist: Yasmeen Mata [place] [facility] [place] ASSESS LV FUNCTION BP: 82 / 65 HR: 50 Rhythm: Sinus Technical Quality: Adequate MEASUREMENTS (Male / Female) Normal Values 2D ECHO LV Diastolic Diameter PLAX 5.4 cm 4.2 - 5.9 / 3.9 - 5.3 cm LV Systolic Diameter PLAX 4.4 cm LV Chamber Size 3.5 cm IVS Diastolic Thickness 1.0 cm 0.6 - 1.0 / 0.6 - 0.9 cm IVS Systolic Thickness 1.3 cm LVPW Diastolic Thickness 1.4 cm 0.6 - 1.0 / 0.6 - 0.9 cm LVPW Systolic Thickness 1.8 cm RV Chamber Size 3.2 cm LVOT Diameter 2.1 cm LV Ejection Fraction 2D Teich 37.8 % LV Ejection Fraction MOD 2C 62.5 % LV Ejection Fraction 2C AL 64.2 % LA Diameter 4.1 cm LA Width 3.0 cm LA Height 4.9 cm RA Width 3.7 cm RA Height 4.7 cm Aorta at Sinotubular Diameter 3.3 cm M-MODE LV Diastolic Diameter MM 5.8 cm 4.2 - 5.9 / 3.9 - 5.3 cm LV Systolic Diameter MM 4.8 cm LV Ejection Fraction MM Teich 35.6 % IVS Diastolic Thickness MM 1.5 cm 0.6 - 1.0 / 0.6 - 0.9 cm IVS Systolic Thickness MM 1.4 cm LVPW Diastolic Thickness MM 1.1 cm 0.6 - 1.0 / 0.6 - 0.9 cm LVPW Systolic Thickness MM 1.2 cm Aortic Annulus Diameter 3.8 cm LA Ao Ratio MM 1.2 MV E Point Septal Separation 1.4 cm DOPPLER TR Peak Velocity 196.0 cm/s TR Peak Gradient 15.4 mmHg TR Mean Velocity 114.9 cm/s TR Mean Gradient 6.2 mmHg TR Velocity Time Integral 39.7 cm FINDINGS Left Ventricle Mildly dilated left ventricle. Moderately decreased left ventricular systolic function. Left ventricular ejection fraction is estimated at 35 %. Global left ventricular hypokinesis. Flattened septum in systole consistent with right ventricle pressure overload. Right Ventricle Dilated right ventricle with moderately decreased right ventricular systolic function. Right ventricular systolic pressure 24 mmHg. Right Atrium Moderately increased right atrial size. Left Atrium Moderately increased left atrial size. Mitral Valve Structurally normal mitral valve. Moderate mitral valve regurgitation. Aortic Valve Mildly thickened trileaflet aortic valve. Tricuspid Valve Structurally normal tricuspid valve. Sulmdzsb-kb-hzixbn tricuspid valve regurgitation. Pulmonic Valve Structurally normal pulmonic valve. Mild pulmonary valve regurgitation. Pericardium Trivial pericardial effusion. Right pleural effusion. Aorta Normal size aortic root and proximal ascending aorta. Dilated inferior vena cava CONCLUSIONS 1. Mildly dilated left ventricle. Moderately decreased left ventricular systolic function. Left ventricular ejection fraction is estimated at 35 %. Global left ventricular hypokinesis. Flattened septum in systole consistent with right ventricle pressure overload. 2. Moderate mitral valve regurgitation. Moderate to severe tricuspid valve regurgitation. 3. Pulmonary artery pressure estimated at 4. Moderate biatrial enlargement. 5. Right pleural effusion. Trivial pericardial effusion 6. When compared to previous echocardiogram dated 08/23/20, left and right ventricle systolic function may have decreased somewhat. Mel Cobb MD (Electronically Signed) Final Date: 15 August 2021 23:03 S
--- NOTE | 2021-08-15 14:41 | P.PN_ITS ---
Subjective Subjective: Interval history: Patient complains of feeling cooped up and wants to walk around. He complains of pain in stomach. I spoke to him multiple times and his sister was at bedside on one occasion. Medications: Reviewed: Yes Medication Review Details: Current Medications Acetaminophen (Acetaminophen 325 Mg Tablet) 650 mg PO Q6H PRN PRN Reason: Mild/Mod Pain Or Temp >/= 101 Amiodarone HCl (Amiodarone 200 Mg Tablet) 200 mg PO 0900,2100 [facility] Atorvastatin Calcium (Atorvastatin 40 Mg Tablet) 20 mg PO DAILY [facility] Last Admin: 08/15/21 10:05 Dose: 20 mg Documented by: Bisacodyl (Bisacodyl 5 Mg Tablet) 10 mg PO DAILY PRN; Protocol PRN Reason: Constipation (see protocol) Furosemide (Furosemide 10 Mg/Ml Sdv 10ml) 80 mg IVP DAILY [facility] Last Admin: 08/15/21 10:06 Dose: 80 mg Documented by: Furosemide (Furosemide 10 Mg/Ml Sdv 4ml) 40 mg IVP Q24H [facility] Last Admin: 08/14/21 18:23 Dose: 40 mg Documented by: Amiodarone HCl 900 mg/Dextrose/ IV Miscellaneous Supplies 518 mls @ 0 mls/hr IV .Q0M [facility]; Protocol Last Titration: 08/15/21 13:02 Dose: Infused Documented by: Albumin Human (Albumin) 25 gm in 100 mls @ 60 mls/hr IV Q8H [facility] Last Titration: 08/15/21 12:05 Dose: Infused Documented by: Metoprolol Tartrate (Metoprolol Tartrate 25 Mg Tablet) 25 mg PO TID [facility] Montelukast Sodium (Montelukast Sodium 10 Mg Tablet) 10 mg PO DAILY [facility] Last Admin: 08/15/21 10:05 Dose: 10 mg Documented by: Naloxone HCl (Naloxone 0.4 Mg/Ml Sdv) 0.1 mg IVP Q2M PRN PRN Reason: OPIATERV Non-Formulary Medication (Tiotropium-Olodaterol [Stiolto Respimat]) 2 puff I NHALATION DAILY [facility] Last Admin: 08/14/21 11:00 Dose: 2 puff Documented by: Ondansetron HCl (Ondansetron 2 Mg/Ml Sdv 2 Ml) 4 mg IVP Q8H PRN PRN Reason: vomiting, or N/V if npo Oxycodone/Acetaminophen (Oxycodone-Apap 10-325 Mg Tablet) 1 tab PO Q4H PRN PRN Reason: MODERATE PAIN Last Admin: 08/15/21 13:25 Dose: 1 tab Documented by: Pantoprazole Sodium (Pantoprazole Dr 40 Mg Tablet) 40 mg PO DAILY [facility] Last Admin: 08/15/21 10:06 Dose: 40 mg Documented by: Rivaroxaban (Rivaroxaban 10 Mg Tablet) 20 mg PO DAILY [facility] Last Admin: 08/15/21 10:06 Dose: 20 mg Documented by: Vitals/I&O/Wt Last Vital Signs Temp 97.6 F 08/15/21 10:30 Pulse 98 08/15/21 13:00 Resp 22 H 08/15/21 13:25 BP 80/69 08/15/21 13:00 Pulse Ox 92 08/15/21 13:25 08/14/21 08/15/21 08/15/21 22:59 06:59 14:59 Intake Total 1123.2 / 1973.2 100 / 2073.2 918 / 918 Output Total 150 / 1300 1200 / 2500 Balance 973.2 / 673.2 -1100 / -426.8 918 / 918 Intake & Output 08/13/21 08/14/21 08/15/21 08/16/21 06:59 06:59 06:59 06:59 Intake Total 808.425 / 561.335 2662.2 / 2073.2 918 / 918 Output Total 2800 / 2800 2500 / 2500 Balance -1991.575 / -1991.575 -426.8 / -426.8 918 / 918 Weight 228 lb 1 oz 229 lb Weight last 48 hrs Weight 229 lb Weight 228 lb 1 oz Physical Exam Narrative: EXAM NARRATIVE: GENERAL: Obese man sitting in chair in no acute distress HEENT: Pupils equal round reactive to light. No pallor or icterus. NECK: increased JVD. No carotid bruit. CARDIOVASCULAR SYSTEM: S1-S2 irregular. Tachycardia present. systolic murmur+ RESPIRATORY SYSTEM: Chest clear to auscultation. No wheezes rhonchi or rubs heard. ABDOMEN: Firm and distended, nontender EXTREMITIES: 4+ edema. 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 No focal neurological deficits. Data : 08/15/21 05:16 08/15/21 05:16 A&P Assessment and plan (1) CHF (congestive heart failure): BiV failure: -RV failure with HFrEF -Currently on Lasix 80 mg am and 40 mg pm. Intake/output charting and daily weight. -May hold pm lasix. -Blood pressure soft may need intermittent albumin infusions. -Repeat limited echo. -He will probably benefit from stress testing once euvolemic. Last stress test was almost 10 years back. -I do not believe patient has clear understanding of his medical condition. He tells me that he does not need to use CPAP if his weight is less than 200 and uses a CPAP if his weight is more than 200. He keeps repeating the same thing multiple times. Status: Acute Qualifiers: Heart failure chronicity: acute on chronic Heart failure type: combined systolic and diastolic Qualified Code(s): I50.43 - Acute on chronic combined systolic (congestive) and diastolic (congestive) heart failure (2) Atrial fibrillation: Will wean off amiodarone. Patient started on amiodarone 200 mg p.o. twice daily. He was on p.o. amiodarone at home. -Decrease metoprolol tartrate to 25 mg 3 times daily. May have to lower the dose of metoprolol. -May have to start on digoxin. Status: Acute Qualifiers: Atrial fibrillation type: persistent (not longstanding) Qualified Code(s): I48.19 - Other persistent atrial fibrillation (3) Hyperlipidemia: Status: Acute Qualifiers: Hyperlipidemia type: mixed hyperlipidemia Qualified Code(s): E78.2 - Mixed hyperlipidemia (4) Hypertension: History of hypertension on irbesartan and amlodipine at home. -Medications on hold due to soft blood pressure Status: Acute Qualifiers: Hypertension type: essential hypertension Qualified Code(s): I10 - Essential (primary) hypertension (5) WENDI (obstructive sleep apnea): Noncompliant to CPAP. Status: Acute Additional A&P Information Moderate pulmonary hypertension Mild to moderate tricuspid valve regurgitation COPD History of thoracoabdominal aneurysm repair. Chronic kidney disease stage 3: Baseline creatinine 1.3-1.4 Hyponatremia Thank you for allowing me to participate in patient's care. Please feel free to call with questions or concerns. Attestations Medical Necessity Statement*: Needs hospital stay for A. fib with RVR and CHF Time Spent in Patient Care: Greater than 35 minutes (>than 50% of time spent in counselling and/or direct pt care on unit) . Coding Level of Care Code Acute [employer] Reading Teacher for Chg Fwd Diagnoses CHF (congestive heart failure) I50.43 Heart failure chronicity: acute on chronic Heart failure type: combined systolic and diastolic Atrial fibrillation I48.19 Atrial fibrillation type: persistent (not longstanding) Hyperlipidemia E78.2 Hyperlipidemia type: mixed hyperlipidemia Hypertension I10 Hypertension type: essential hypertension WENDI (obstructive sleep apnea) G47.33
--- NOTE | 2021-08-15 14:47 | PC.NURSE ---
0900-c/o not being able to get up. informed i could help him to chair. assisted with walker to ch. stood at bedside for some time then to ch. feet elevated.
--- NOTE | 2021-08-15 14:50 | PC.NURSE ---
1400. has c/o numerous tiimes of bladder hurting. states if he could stand he feels like he could void. explained about balloon on tip of villagran to keep it in place and the possibility of the balloon resting on a nerve in the bladder. keeps insisting he is going, but no urine in tubing. bladder scan done, no urine in bladder. catheter ramirez released d/t villagran being to tight.
[2021-08-15] MEDS: amiodarone 200 mg Tablet PO ×2 (15:07→20:11)
--- NOTE | 2021-08-15 16:26 | PC.RESP ---
PULMONARY REHAB INFORMATION SENT TO PATIENT.
--- NOTE | 2021-08-15 18:34 | PC.NURSE ---
1814-transferred to [facility] per wheel chair on 4l n.c. aleksandar. up well. doing leg stretches. bilat arms appear a little less edematous. transferred with cell ph., coding specialist home health, keys and billfold in coat pockets. up to recliner in room.
--- NOTE | 2021-08-15 19:14 | PC.NURSE ---
Transfer Note Patient transferred to [108] from [[facility]] via [w/c] at 1830. Handoff received from [shira]. Patient oriented to environment and equipment. Covering service notified. Orders reviewed and will continue to monitor. Family and/or patient intake representative notified.
--- NOTE | 2021-08-15 20:29 | PC.NURSE ---
Patient resting up in chair. Patient reports feeling most comfortable tonight than he has in a few days. Patient prefers to be allowed to sleep this evening. Metoprolol not given this night due to decreased BP and MAP per Dr Cazares. Dr Cazares placing order for onetime dose of Midodrine 10mg PO. Will administer when verified by pharmacy.
[2021-08-15] MEDS: midodrine 5 mg TABLET 10 MG PO (21:20)
[2021-08-15] MEDS: DOPamine drip 400 MG/250 ML PREMIX 19.48 MG IV (21:20)
--- NOTE | 2021-08-15 22:29 | PC.NURSE ---
Patient heart rate increasing at this time 120s to upper 140s sustaining. Informed Dr Cobb and received telephone orders Metoprolol 12.5mg PO onetime now and Metoprolol 5mg IVP PRN every4 hours for heart rate >120. RBVO
[2021-08-15] MEDS: metoprolol tartrate 25 mg Tablet 12.5 MG PO (22:40)
[2021-08-16] VITALS (20 sets, daily range): BP systolic 95–127; BP diastolic 60–95; PULSE 96–142; RESP 12–23; TEMP 36.8–37; O2SAT 77–98
--- NOTE | 2021-08-16 01:17 | PC.NURSE ---
Patient remains up to chair for comfort. BP increasing with dopamine running at set rate as documented. Patient denies pain or other needs. No distress observed.
[2021-08-16 04:28] LABS: Basophils # 0.1 10^3/uL (0.0-0.1); Basophils % 0.9 %; Eosinophils % 0.7 %; Hematocrit 41.2 % (42.0-52.0); Hemoglobin 12.8 g/dL (11.7-16.6); Lymphocytes # 0.9 10^3/uL (0.8-4.8); Lymphocytes % 14.6 %; Mean Corpuscular HGB Conc 31.1 g/dL (30.0-36.0); Mean Corpuscular Hemoglobin 24.5 pg (28.0-34.0); Mean Corpuscular Volume 78.9 fl (80-94); Mean Platelet Volume 10.7 fL (7.4-10.4); Monocytes # 0.5 10^3/uL (0.2-0.9); Monocytes % 8.8 %; Neutrophils # 4.39 10^3/uL (1.8-7.7); Neutrophils % 74.7 %; Nucleated Red Blood Cells % 0 %; Platelet Count 175 10^3/cmm (130-400); Red Blood Count 5.22 10^6/uL (4.1-5.3); Red Cell Distribution Width 17.7 % (12.1-15.1); White Blood Count 5.9 10^3/uL (4.0-10.0)
[2021-08-16] MEDS: metoprolol tartrate 1 mg/1 mL SDV 5 mL 5 MG IVP (04:56)
[2021-08-16 05:00] LABS: Alanine Aminotransferase 29 U/L (0-41); Albumin Level 3.7 g/dL (3.5-5.2); Alkaline Phosphatase 78 IU/L (40-130); Anion Gap 14.3 (5-19); Aspartate Amino Transferase 42 U/L (0-40); Blood Urea Nitrogen 29 mg/dL (8-23); Calcium 9.6 mg/dL (8.5-10.5); Carbon Dioxide 25 mmol/L (22-29); Chloride 95 mmol/L (98-107); Globulin 3.1 g/dL (1.3-4.6); Glomerular Filtration Rate 35.8 mL/min (90-130); Glucose 93 mg/dL (65-115); Magnesium 1.9 mg/dL (1.7-2.3); Osmolality Calculated 276 mOsm/kg (285-295); Potassium 4.3 mmol/L (3.5-5.1); Sodium 130 mmol/L (136-145); Total Bilirubin 1.5 mg/dL (0.15-1.2); Total Protein 6.8 g/dL (6.6-8.7)
--- NOTE | 2021-08-16 05:29 | PC.NURSE ---
Patient sitting up on edge of bed from 0330 to this time. Patient heart increased to 125 to 140s sustained. Administered IV Metoprolol as ordered. Patient assisted to lie down. Positioned for comfort. Current heart rate at this time is 105. Patient denies pain at this time. Noted patient to have clear urine with improved color and noted increase in output.
--- NOTE | 2021-08-16 06:44 | PC.NURSE ---
Shift Note Frequent safety and comfort rounds continue. Orders and/or nursing care completed as indicated. Patient monitored for response to intervention and treatment(s). Education provided includes dopamine. Patient verbalized understanding however will need continued reinforcement. Patient continues to deny pain. Urine appearance and amount improving slightly. Heart rate continues upper 90s to mid 110s. No distress observed. Will continue to monitor.
--- NOTE | 2021-08-16 08:48 | P.PN_ITS ---
Subjective Subjective: Interval history: He has been transferred out of unit. Decreased UO yesterday. He received albumin, was started on dopamine gtt. His UO has improved this afternoon so far. He remains in atrial fibrillation with HR 110's- 130's. -Patient complains of feeling cooped up and wants to walk around. No pain in stomach. Medications: Reviewed: Yes Medication Review Details: Current Medications Acetaminophen (Acetaminophen 325 Mg Tablet) 650 mg PO Q6H PRN PRN Reason: Mild/Mod Pain Or Temp >/= 101 Amiodarone HCl (Amiodarone 200 Mg Tablet) 200 mg PO 0900,2100 [facility] Atorvastatin Calcium (Atorvastatin 40 Mg Tablet) 20 mg PO DAILY [facility] Last Admin: 08/15/21 10:05 Dose: 20 mg Documented by: Bisacodyl (Bisacodyl 5 Mg Tablet) 10 mg PO DAILY PRN; Protocol PRN Reason: Constipation (see protocol) Furosemide (Furosemide 10 Mg/Ml Sdv 10ml) 80 mg IVP DAILY [facility] Last Admin: 08/15/21 10:06 Dose: 80 mg Documented by: Furosemide (Furosemide 10 Mg/Ml Sdv 4ml) 40 mg IVP Q24H [facility] Last Admin: 08/14/21 18:23 Dose: 40 mg Documented by: Amiodarone HCl 900 mg/Dextrose/ IV Miscellaneous Supplies 518 mls @ 0 mls/hr IV .Q0M [facility]; Protocol Last Titration: 08/15/21 13:02 Dose: Infused Documented by: Albumin Human (Albumin) 25 gm in 100 mls @ 60 mls/hr IV Q8H [facility] Last Titration: 08/15/21 12:05 Dose: Infused Documented by: Metoprolol Tartrate (Metoprolol Tartrate 25 Mg Tablet) 25 mg PO TID [facility] Montelukast Sodium (Montelukast Sodium 10 Mg Tablet) 10 mg PO DAILY [facility] Last Admin: 08/15/21 10:05 Dose: 10 mg Documented by: Naloxone HCl (Naloxone 0.4 Mg/Ml Sdv) 0.1 mg IVP Q2M PRN PRN Reason: OPIATERV Non-Formulary Medication (Tiotropium-Olodaterol [Stiolto Respimat]) 2 puff INHALATION DAILY [facility] Last Admin: 08/14/21 11:00 Dose: 2 puff Documented by: Ondansetron HCl (Ondansetron 2 Mg/Ml Sdv 2 Ml) 4 mg IVP Q8H PRN PRN Reason: vomiting, or N/V if npo Oxycodone/Acetaminophen (Oxycodone-Apap 10-325 Mg Tablet) 1 tab PO Q4H PRN PRN Reason: MODERATE PAIN Last Admin: 08/15/21 13:25 Dose: 1 tab Documented by: Pantoprazole Sodium (Pantoprazole Dr 40 Mg Tablet) 40 mg PO DAILY [facility] Last Admin: 08/15/21 10:06 Dose: 40 mg Documented by: Rivaroxaban (Rivaroxaban 10 Mg Tablet) 20 mg PO DAILY [facility] Last Admin: 08/15/21 10:06 Dose: 20 mg Documented by: Vitals/I&O/Wt Last Vital Signs Temp 98.4 F 08/16/21 07:57 Pulse 121 H 08/16/21 07:57 Resp 20 H 08/16/21 07:57 BP 101/70 08/16/21 07:57 Pulse Ox 95 08/16/21 07:57 08/15/21 08/16/21 08/16/21 22:59 06:59 14:59 Intake Total 340 / 1258 100 / 1358 Output Total 100 / 100 150 / 250 Balance 240 / 1158 -50 / 1108 Weight last 48 hrs Weight 234 lb 11.2 oz Weight 229 lb Physical Exam Narrative: EXAM NARRATIVE: GENERAL: Obese man sitting in chair in no acute distress HEENT: Pupils equal round reactive to light. No pallor or icterus. NECK: increased JVD. No carotid bruit. CARDIOVASCULAR SYSTEM: S1-S2 irregular. Tachycardia present. systolic murmur+ RESPIRATORY SYSTEM: Chest clear to auscultation. No wheezes rhonchi or rubs heard. ABDOMEN: Firm and distended, nontender EXTREMITIES: 4+ edema. 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 No focal neurological deficits. Data : 08/16/21 04:00 08/16/21 04:00 A&P Assessment and plan (1) CHF (congestive heart failure): BiV failure: -RV failure with HFrEF -Currently on Lasix 80 mg am and plan to repeat another lasix 40 mg iv this pm based on urine output. Intake/output charting and daily weight. -Blood pressure soft may need intermittent albumin infusions. -Repeat limited echo with some decrease in LV and RV function. -He will probably benefit from stress testing once euvolemic. Last stress test was almost 10 years back. -I do not believe patient has clear understanding of his medical condition. He tells me that he does not need to use CPAP if his weight is less than 200 and uses a CPAP if his weight is more than 200. He keeps repeating the same thing multiple times. Status: Acute Qualifiers: Heart failure chronicity: acute on chronic Heart failure type: combined systolic and diastolic Qualified Code(s): I50.43 - Acute on chronic combined systolic (congestive) and diastolic (congestive) heart failure (2) Atrial fibrillation: Will wean off amiodarone. Patient started on amiodarone 200 mg p.o. twice daily. He was on p.o. amiodarone at home. -Decrease metoprolol tartrate to 12.5 mg 3 times daily. May have to lower the dose of metoprolol. -May have to start on digoxin if renal function cooperates. Status: Acute Qualifiers: Atrial fibrillation type: persistent (not longstanding) Qualified Code(s): I48.19 - Other persistent atrial fibrillation (3) Hyperlipidemia: Status: Acute Qualifiers: Hyperlipidemia type: mixed hyperlipidemia Qualified Code(s): E78.2 - Mixed hyperlipidemia (4) Hypertension: History of hypertension on irbesartan and amlodipine at home. -Medications on hold due to soft blood pressure Status: Acute Qualifiers: Hypertension type: essential hypertension Qualified Code(s): I10 - Essential (primary) hypertension (5) WENDI (obstructive sleep apnea): Noncompliant to CPAP. Status: Acute Additional A&P Information Moderate pulmonary hypertension Mild to moderate tricuspid valve regurgitation COPD History of thoracoabdominal aneurysm repair. Chronic kidney disease stage 3: Baseline creatinine 1.4 Hyponatremia Thank you for allowing me to participate in patient's care. Please feel free to call with questions or concerns. Attestations Medical Necessity Statement*: Needs hospital stay for A. fib with RVR and CHF Time Spent in Patient Care: Greater than 35 minutes (>than 50% of time spent in counselling and/or direct pt care on unit) . Coding Level of Care Code Acute Emergency Veterinary Technician for Krysten Gaffney Diagnoses CHF (congestive heart failure) I50.43 Heart failure chronicity: acute on chronic Heart failure type: combined systolic and diastolic Atrial fibrillation I48.19 Atrial fibrillation type: persistent (not longstanding) Hyperlipidemia E78.2 Hyperlipidemia type: mixed hyperlipidemia Hypertension I10 Hypertension type: essential hypertension WENDI (obstructive sleep apnea) G47.33
--- NOTE | 2021-08-16 08:52 | PC.SOCIAL ---
IMM updated Page 2 updated and placed in chart. Initialed, timed and dated.
[2021-08-16] MEDS: montelukast sodium 10 mg Tablet PO (09:52)
[2021-08-16] MEDS: metoprolol tartrate 25 mg Tablet 12.5 MG PO ×3 (09:52→20:38)
[2021-08-16] MEDS: rivaroxaban 10 mg Tablet 20 MG PO (09:52)
[2021-08-16] MEDS: pantoprazole DR 40 mg Tablet PO (09:52)
[2021-08-16] MEDS: atorvastatin 40 mg Tablet 20 MG PO (09:52)
[2021-08-16] MEDS: amiodarone 200 mg Tablet PO ×2 (09:53→20:38)
[2021-08-16] MEDS: DOPamine drip 400 MG/250 ML PREMIX 19.48 MG IV ×2 (10:12→22:51)
--- NOTE | 2021-08-16 11:41 | P.PN_ITS ---
Subjective Subjective: Interval history: Patient was seen and examined this morning. Continue to be in A.fib with RVR with rate in 120-130s,deny any chest pain,sob,goood urine output in the last 24h.hyponatremia has improved as well as SCR. Medications: Reviewed: Yes Vitals/I&O/Wt Last Vital Signs Temp 98.2 F 08/16/21 10:00 Pulse 110 H 08/16/21 10:29 Resp 20 H 08/16/21 10:00 BP 115/78 08/16/21 10:00 Pulse Ox 93 08/16/21 10:29 08/15/21 08/16/21 08/16/21 22:59 06:59 14:59 Intake Total 340 / 1258 100 / 1358 610 / 610 Output Total 100 / 100 150 / 250 Balance 240 / 1158 -50 / 1108 610 / 610 Weight last 48 hrs Weight 106.458 kg Weight 103.873 kg Physical Exam Const: COMMON NORMALS: patient oriented x3 HENMT: COMMON NORMALS: normocephalic and atraumatic HEAD & SCALP: normocephalic and atraumatic Resp: COMMON NORMALS: clear to auscultation bilaterally EFFORT & INSPECTION: Yes symmetric chest movement AUSCULTATION: clear to auscultation bilaterally Cardio: COMMON NORMALS: No gallops present (Cardio) and No rub (Cardio) OTHER: S1-S2 variable intensity,No MRG GI: COMMON NORMALS: Normal to inspection, nondistended, normoactive bowel sounds present, Soft to palpation, non-tender, No hepatosplenomegaly present and no masses AUSCULTATION: Yes normoactive bowel sounds PALPATION: Yes Soft to palpation and Yes No hepatosplenomegaly present RECTAL EXAM: Yes deferred Extremity: NARRATIVE EXTREMITY EXAM: 3+ pitting edema up to the level of mid abdomen Neuro: COMMON NORMALS: patient oriented x3 Data : 08/17/21 09:20 08/17/21 09:20 A&P Assessment and plan (1) CHF (congestive heart failure): Decompensated heart failure with reduced ejection fraction. 2D echo: 07/2020: Normal LV size with reduced ejection fraction EF around 40%, diffuse hypokinesia of left ventricle, mildly dilated RV [id number] tricuspid valve regurgitation.Mild mitral and trace of aortic regurgitation. Moderate pulmonic regurgitation with a dilated pulmonary artery Moderate pulmonary hypertension with estimated pulmonary artery peak systolic pressure of 50 mmHg. Repeat 2D echo: 08/23: Normal LV size with diminished LVEF ( 40% ) , Diffuse hypokinesia of the left ventricle,Mildly dilated right ventricle with a slightly diminished ejection fraction. Mild to moderate TR, mild MR, trace AR, Lasix 40 mg IV BID Metolazone 5 mg po Daily Intake output charting Daily weight K>4, MG>2 Cardiac diet Telemetry Status: Acute Qualifiers: Heart failure chronicity: acute on chronic Heart failure type: combined systolic and diastolic Qualified Code(s): I50.43 - Acute on chronic combined systolic (congestive) and diastolic (congestive) heart failure (2) Atrial fibrillation: Atrial fibrillation with RVR: Patient has been in normal sinus rhythm as an outpatient and is on amiodarone p.o. He has been on full anticoagulation. Amnio drip stopped Amidarone 200 mg po BID Digoxin 250 mcg I.V Once Metoprolol Tartrate 12.5 mg po TID Metoprolol T 5 MG I.V Q4H PRN Status: Acute Qualifiers: Atrial fibrillation type: persistent (not longstanding) Qualified Code(s): I48.19 - Other persistent atrial fibrillation (3) Hyponatremia: Hypervolemic hyponatremia. Monitor BMP Plan as above Status: Acute (4) CKD (chronic kidney disease) stage 3, GFR 30-59 ml/min: DESTINY ON CKD Stage 3 2/2 CRS Baseline SCR : 1.3-1.4 Current serum creatinine is 1.3 Because of Poor urine Output transiently : Plan is to give albumin and continue with IV diuresis. Has also been hypotensive to ensure renal perfusion he was continued on dopamine drip @3mcg/kg/min. Monitor BMP Status: Acute (5) Hypertension: Currently Hypotensive Status: Acute Qualifiers: Hypertension type: essential hypertension Qualified Code(s): I10 - Essential (primary) hypertension (6) COPD (chronic obstructive pulmonary disease): Currently not in exacerbation Status: Acute Qualifiers: COPD type: unspecified COPD Qualified Code(s): J44.9 - Chronic obstructive pulmonary disease, unspecified (7) WENDI (obstructive sleep apnea): Uses CPAP at home. 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: Status: Acute (9) Anasarca: Status: Acute Additional A&P Information CODE STATUS: Full code DVT prophylaxis: Not needed on Xarelto Attestations Medical Necessity Statement*: Patient needs to be in the hospital for management of heart failure, DESTINY, A. fib with RVR. Coding Level of Care Code Acute Cargo Services Coordinator for Chg Fwd Exam Detailed Diagnoses CHF (congestive heart failure) I50.43 Heart failure chronicity: acute on chronic Heart failure type: combined systolic and diastolic Atrial fibrillation I48.19 Atrial fibrillation type: persistent (not longstanding) Hyponatremia E87.1 CKD (chronic kidney disease) stage 3, GFR 30-59 ml/min N18.30 Hypertension I10 Hypertension type: essential hypertension COPD (chronic obstructive pulmonary disease) J44.9 COPD type: unspecified COPD WENDI (obstructive sleep apnea) G47.33 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
[2021-08-16] MEDS: FUROsemide 10 mg/mL SDV 10mL 80 MG IVP (12:12)
[2021-08-16] MEDS: oxyCODONE-APAP 10-325 mg Tablet 1 TAB PO ×2 (12:53→22:48)
[2021-08-17] VITALS (13 sets, daily range): BP systolic 77–119; BP diastolic 52–83; PULSE 94–149; RESP 14–27; TEMP 36.3–37; O2SAT 90–96
[2021-08-17] MEDS: atorvastatin 40 mg Tablet 20 MG PO (08:11)
[2021-08-17] MEDS: metOLazone 5 MG Tablet PO (08:11)
[2021-08-17] MEDS: pantoprazole DR 40 mg Tablet PO (08:12)
[2021-08-17] MEDS: metoprolol tartrate 25 mg Tablet 12.5 MG PO ×2 (08:12→13:31)
[2021-08-17] MEDS: montelukast sodium 10 mg Tablet PO (08:12)
[2021-08-17] MEDS: amiodarone 200 mg Tablet PO ×2 (08:12→20:55)
[2021-08-17] MEDS: rivaroxaban 10 mg Tablet 20 MG PO (08:12)
[2021-08-17] MEDS: FUROsemide 10 mg/mL SDV 4mL 40 MG IVP ×2 (08:25→16:18)
[2021-08-17] MEDS: midodrine 5 mg TABLET 10 MG PO ×4 (09:33→20:55)
[2021-08-17 09:52] LABS: Anion Gap 15.7 (5-19); Blood Urea Nitrogen 30 mg/dL (8-23); Calcium 9.7 mg/dL (8.5-10.5); Carbon Dioxide 26 mmol/L (22-29); Chloride 97 mmol/L (98-107); Glomerular Filtration Rate 55.4 mL/min (90-130); Glucose 127 mg/dL (65-115); Magnesium 1.8 mg/dL (1.7-2.3); Osmolality Calculated 286 mOsm/kg (285-295); Potassium 4.7 mmol/L (3.5-5.1); Sodium 134 mmol/L (136-145)
[2021-08-17] MEDS: metoprolol tartrate 1 mg/1 mL SDV 5 mL 5 MG IVP (09:55)
--- NOTE | 2021-08-17 09:55 | PC.NURSE ---
Called mechanical engineering teacher regarding heart rate of 140's. Followed order to give metoprolol 5mg IVP. Nurse will continue to monitor.
[2021-08-17 10:02] LABS: Basophils % 0.6 %; Eosinophils # 0.2 10^3/uL (0.0-0.8); Eosinophils % 2.8 %; Hematocrit 40.7 % (42.0-52.0); Hemoglobin 12.8 g/dL (11.7-16.6); Lymphocytes # 0.5 10^3/uL (0.8-4.8); Lymphocytes % 8.1 %; Mean Corpuscular HGB Conc 31.4 g/dL (30.0-36.0); Mean Corpuscular Hemoglobin 24.7 pg (28.0-34.0); Mean Corpuscular Volume 78.6 fl (80-94); Mean Platelet Volume 9.9 fL (7.4-10.4); Monocytes # 0.5 10^3/uL (0.2-0.9); Monocytes % 7.6 %; Neutrophils # 5.17 10^3/uL (1.8-7.7); Neutrophils % 80.4 %; Nucleated Red Blood Cells % 0 %; Platelet Count 162 10^3/cmm (130-400); Red Blood Count 5.18 10^6/uL (4.1-5.3); Red Cell Distribution Width 17.5 % (12.1-15.1); White Blood Count 6.4 10^3/uL (4.0-10.0)
--- NOTE | 2021-08-17 10:43 | P.PN_ITS ---
Subjective Subjective: Interval history: He had good UO. HR in 140's. He denies any complaints. Medications: Reviewed: Yes Medication Review Details: Current Medications Acetaminophen (Acetaminophen 325 Mg Tablet) 650 mg PO Q6H PRN PRN Reason: Mild/Mod Pain Or Temp >/= 101 Amiodarone HCl (Amiodarone 200 Mg Tablet) 200 mg PO 0900,2100 [facility] Atorvastatin Calcium (Atorvastatin 40 Mg Tablet) 20 mg PO DAILY [facility] Last Admin: 08/15/21 10:05 Dose: 20 mg Documented by: Bisacodyl (Bisacodyl 5 Mg Tablet) 10 mg PO DAILY PRN; Protocol PRN Reason: Constipation (see protocol) Furosemide (Furosemide 10 Mg/Ml Sdv 10ml) 80 mg IVP DAILY [facility] Last Admin: 08/15/21 10:06 Dose: 80 mg Documented by: Furosemide (Furosemide 10 Mg/Ml Sdv 4ml) 40 mg IVP Q24H [facility] Last Admin: 08/14/21 18:23 Dose: 40 mg Documented by: Amiodarone HCl 900 mg/Dextrose/ IV Miscellaneous Supplies 518 mls @ 0 mls/hr IV .Q0M [facility]; Protocol Last Titration: 08/15/21 13:02 Dose: Infused Documented by: Albumin Human (Albumin) 25 gm in 100 mls @ 60 mls/hr IV Q8H [facility] Last Titration: 08/15/21 12:05 Dose: Infused Documented by: Metoprolol Tartrate (Metoprolol Tartrate 25 Mg Tablet) 25 mg PO TID [facility] Montelukast Sodium (Montelukast Sodium 10 Mg Tablet) 10 mg PO DAILY [facility] Last Admin: 08/15/21 10:05 Dose: 10 mg Documented by: Naloxone HCl (Naloxone 0.4 Mg/Ml Sdv) 0.1 mg IVP Q2M PRN PRN Reason: OPIATERV Non-Formulary Medication (Tiotropium-Olodaterol [Stiolto Respimat]) 2 puff INHALATION DAILY [facility] Last Admin: 08/14/21 11:00 Dose: 2 puff Documented by: Ondansetron HCl (Ondansetron 2 Mg/Ml Sdv 2 Ml) 4 mg IVP Q8H PRN PRN Reason: vomiting, or N/V if npo Oxycodone/Acetaminophen (Oxycodone-Apap 10-325 Mg Tablet) 1 tab PO Q4H PRN PRN Reason: MODERATE PAIN Last Admin: 08/15/21 13:25 Dose: 1 tab Documented by: Pantoprazole Sodium (Pantoprazole Dr 40 Mg Tablet) 40 mg PO DAILY [facility] Last Admin: 08/15/21 10:06 Dose: 40 mg Documented by: Rivaroxaban (Rivaroxaban 10 Mg Tablet) 20 mg PO DAILY [facility] Last Admin: 08/15/21 10:06 Dose: 20 mg Documented by: Vitals/I&O/Wt Last Vital Signs Temp 97.4 F L 08/17/21 07:31 Pulse 120 H 08/17/21 09:51 Resp 14 08/17/21 07:31 BP 110/74 08/17/21 07:31 Pulse Ox 90 08/17/21 09:51 08/16/21 08/17/21 08/17/21 22:59 06:59 14:59 Intake Total 968.797 / 2278.797 100 / 2378.797 100 / 100 Output Total 1600 / 1600 1025 / 2625 400 / 400 Balance -631.203 / 678.797 -925 / -246.203 -300 / -300 Weight last 48 hrs Weight 234 lb 11.2 oz Physical Exam Narrative: EXAM NARRATIVE: GENERAL: Obese man sitting in chair in no acute distress HEENT: Pupils equal round reactive to light. No pallor or icterus. NECK: increased JVD. No carotid bruit. CARDIOVASCULAR SYSTEM: S1-S2 irregular. Tachycardia present. systolic murmur+ RESPIRATORY SYSTEM: Chest clear to auscultation. No wheezes rhonchi or rubs heard. ABDOMEN: Firm and distended, nontender EXTREMITIES: 4+ edema. 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 No focal neurological deficits. Data : 08/17/21 09:20 08/17/21 09:20 A&P Assessment and plan (1) CHF (congestive heart failure): BiV failure: -RV failure with HFrEF -Currently on Lasix 40 mg IV BID. D/C dopamine. -Intake/output charting and daily weight. -start on metolazone 5 mg daily. -Repeat limited echo with some decrease in LV and RV function. -He will probably benefit from stress testing once euvolemic. Last stress test was almost 10 years back. Status: Acute Qualifiers: Heart failure chronicity: acute on chronic Heart failure type: combined systolic and diastolic Qualified Code(s): I50.43 - Acute on chronic combined systolic (congestive) and diastolic (congestive) heart failure (2) Atrial fibrillation: -continue on amiodarone 200 mg p.o. twice daily. -recieved digoxin 250 mcg earlier today. will repeat another dose. -Decrease metoprolol tartrate to 12.5 mg 3 times daily. May have to lower the dose of metoprolol. Status: Acute Qualifiers: Atrial fibrillation type: persistent (not longstanding) Qualified Code(s): I48.19 - Other persistent atrial fibrillation (3) Hyperlipidemia: Status: Acute Qualifiers: Hyperlipidemia type: mixed hyperlipidemia Qualified Code(s): E78.2 - Mixed hyperlipidemia (4) Hypertension: History of hypertension on irbesartan and amlodipine at home. -Medications on hold due to soft blood pressure Status: Acute Qualifiers: Hypertension type: essential hypertension Qualified Code(s): I10 - Essential (primary) hypertension (5) WENDI (obstructive sleep apnea): Noncompliant to CPAP. Status: Acute Additional A&P Information Moderate pulmonary hypertension Mild to moderate tricuspid valve regurgitation COPD History of thoracoabdominal aneurysm repair. DESTINY on Chronic kidney disease stage 3: Baseline creatinine 1.4; Creatinine down to 1.3 with diuresis. Hyponatremia Thank you for allowing me to participate in patient's care. Please feel free to call with questions or concerns. Attestations Medical Necessity Statement*: Needs hospital stay for A. fib with RVR and CHF Time Spent in Patient Care: Greater than 35 minutes (>than 50% of time spent in counselling and/or direct pt care on unit) . Coding Level of Care Code Acute Collar Sewer for g Fwd Diagnoses CHF (congestive heart failure) I50.43 Heart failure chronicity: acute on chronic Heart failure type: combined systolic and diastolic Atrial fibrillation I48.19 Atrial fibrillation type: persistent (not longstanding) Hyperlipidemia E78.2 Hyperlipidemia type: mixed hyperlipidemia Hypertension I10 Hypertension type: essential hypertension WENDI (obstructive sleep apnea) G47.33
[2021-08-17] MEDS: digoxin 250 mcg/ml INJ 2 mL IVP ×2 (12:19→20:58)
[2021-08-17] MEDS: oxyCODONE-APAP 10-325 mg Tablet 1 TAB PO (13:29)
--- NOTE | 2021-08-17 14:00 | PC.NURSE ---
Present with physician in pt room. Physician instructed nurse to stop dopamine gtt. Nurse paused the gtt and set bloodpressure to monitor q15m
[2021-08-17] MEDS: DOPamine drip 400 MG/250 ML PREMIX 11.69 MG IV (14:14)
--- NOTE | 2021-08-17 20:33 | PC.NURSE ---
This nurse called the hospitalist d/t patients BP being low and HR being tachy, received orders to give the amiodorone and midodrine but to hold the metoprolol.
[2021-08-18] VITALS (9 sets, daily range): BP systolic 79–99; BP diastolic 58–79; PULSE 114–138; RESP 11–18; TEMP 36.3–36.6; O2SAT 92–95
[2021-08-18 04:20] LABS: Basophils # 0.1 10^3/uL (0.0-0.1); Basophils % 0.5 %; Eosinophils # 0.1 10^3/uL (0.0-0.8); Hematocrit 40.2 % (42.0-52.0); Hemoglobin 11.7 g/dL (11.7-16.6); Lymphocytes # 0.8 10^3/uL (0.8-4.8); Lymphocytes % 7.7 %; Mean Corpuscular HGB Conc 29.1 g/dL (30.0-36.0); Mean Corpuscular Hemoglobin 24.6 pg (28.0-34.0); Mean Corpuscular Volume 84.6 fl (80-94); Mean Platelet Volume 10.8 fL (7.4-10.4); Monocytes % 10.2 %; Neutrophils % 79.7 %; Nucleated Red Blood Cells % 0 %; Platelet Count 167 10^3/cmm (130-400); Red Blood Count 4.75 10^6/uL (4.1-5.3); Red Cell Distribution Width 18.3 % (12.1-15.1)
--- NOTE | 2021-08-18 04:21 | PC.NURSE ---
This nurse sent a msg to Dr. Lam via [employer] at 0420 regarding BP and HR, waiting to see if any new orders are placed.
--- NOTE | 2021-08-18 05:24 | PC.NURSE ---
This nurse received N/O to change dosage of midodrine from 10mg to 20mg and start now.
[2021-08-18] MEDS: midodrine 5 mg TABLET 20 MG PO ×3 (05:40→21:57)
[2021-08-18 07:00] LABS: Anion Gap 11.2 (5-19); Blood Urea Nitrogen 26 mg/dL (8-23); Calcium 9.3 mg/dL (8.5-10.5); Carbon Dioxide 28 mmol/L (22-29); Chloride 98 mmol/L (98-107); Glomerular Filtration Rate 60.8 mL/min (90-130); Glucose 85 mg/dL (65-115); Magnesium 1.5 mg/dL (1.7-2.3); NT Pro B Type Natriuretic Pept 15110 pg/mL (0-125); Osmolality Calculated 280 mOsm/kg (285-295); Potassium 4.2 mmol/L (3.5-5.1); Sodium 133 mmol/L (136-145)
[2021-08-18] MEDS: montelukast sodium 10 mg Tablet PO (08:12)
[2021-08-18] MEDS: rivaroxaban 10 mg Tablet 20 MG PO (08:12)
[2021-08-18] MEDS: atorvastatin 40 mg Tablet 20 MG PO (08:13)
[2021-08-18] MEDS: pantoprazole DR 40 mg Tablet PO (08:13)
[2021-08-18] MEDS: magnesium sulfate premix 2 GM/50 ML PIGGYBACK IV (08:14)
[2021-08-18] MEDS: amiodarone 200 mg Tablet PO ×2 (08:14→21:57)
[2021-08-18] MEDS: metOLazone 5 MG Tablet PO (08:14)
[2021-08-18] MEDS: polyethylene glycol 3350 Pkt 17 gm PO (08:21)
[2021-08-18] MEDS: docusate sodium 100 mg Capsule PO ×2 (08:22→16:38)
[2021-08-18] MEDS: digoxin 250 mcg/ml INJ 2 mL IVP (08:24)
[2021-08-18] MEDS: FUROsemide 10 mg/mL SDV 4mL 40 MG IVP ×2 (08:24→17:03)
--- NOTE | 2021-08-18 09:19 | PM.PN ---
Subjective Subjective: Interval history: This morning patient was examined, he has multiple complaints, first he tells me that they did not bring him skim milk with his cereal this morning, he is also complains about being stuck here in the hospital for over a week, which is making him quite frustrated, he still complains of some shortness of breath at rest, he does have edema of his legs, he tells me that he wants to get up out of bed, he has not had a bowel movement in over a week, Vitals/I&O/Wt Last Vital Signs Temp 97.6 F 08/18/21 07:58 Pulse 115 H 08/18/21 07:58 Resp 18 08/18/21 07:58 BP 87/69 08/18/21 07:58 Pulse Ox 93 08/18/21 07:58 08/17/21 08/18/21 08/18/21 22:59 06:59 14:59 Intake Total 60 / 410.585 150 / 560.585 120 / 120 Output Total 700 / 1800 900 / 2700 200 / 200 Balance -640 / -1389.415 -750 / -2139.415 -80 / -80 Weight last 48 hrs Weight 105.687 kg Physical Exam Const: COMMON NORMALS: no acute distress and patient oriented x3 Resp: COMMON NORMALS: normal respiratory effort, No retractions, No use of accessory muscles and clear to auscultation bilaterally AUSCULTATION: clear to auscultation bilaterally Cardio: COMMON NORMALS: S1 normal heart sound present and S2 normal heart sound present RATE: tachycardic RHYTHM: abnormal rhythm HEART SOUNDS: S1 normal heart sound present and S2 normal heart sound present GI: COMMON NORMALS: Normal to inspection, nondistended, normoactive bowel sounds present, Soft to palpation and non-tender PALPATION: Yes Soft to palpation Extremity: NARRATIVE EXTREMITY EXAM: 1-2 pitting edema bilaterally Neuro: COMMON NORMALS: patient oriented x3 Psych: COMMON NORMALS: mental status grossly normal Data : 08/18/21 03:54 08/18/21 06:05 A&P Assessment and plan (1) CHF (congestive heart failure): Decompensated heart failure with reduced ejection fraction. 2D echo: 07/2020: Normal LV size with reduced ejection fraction EF around 40%, diffuse hypokinesia of left ventricle, mildly dilated RV [id number] tricuspid valve regurgitation.Mild mitral and trace of aortic regurgitation. Moderate pulmonic regurgitation with a dilated pulmonary artery Moderate pulmonary hypertension with estimated pulmonary artery peak systolic pressure of 50 mmHg. Repeat 2D echo: 08/23: Normal LV size with diminished LVEF ( 40% ) , Diffuse hypokinesia of the left ventricle,Mildly dilated right ventricle with a slightly diminished ejection fraction. Mild to moderate TR, mild MR, trace AR, BNP over 1500, -3.6 L, still has some crackles on exam, still has some pitting edema Lasix 40 mg IV BID With albumin therapy Metolazone 5 mg po Daily Midodrine increased to 20 mg 3 times daily Can start dopamine drip if map drops below 75 Replace magnesium Intake output charting Daily weight K>4, MG>2 Cardiac diet Telemetry Continue PT OT, bowel regimen, remove Sunshine catheter, plan discharge in the next 24 hours if he continues to feel better and tolerates physical therapy Status: Acute Qualifiers: Heart failure chronicity: acute on chronic Heart failure type: combined systolic and diastolic Qualified Code(s): I50.43 - Acute on chronic combined systolic (congestive) and diastolic (congestive) heart failure (2) Atrial fibrillation: Atrial fibrillation with RVR: Patient has been in normal sinus rhythm as an outpatient and is on amiodarone p.o. He has been on full anticoagulation. Amnio drip stopped Amidarone 200 mg po BID Digoxin 250 mcg I.V Once Metoprolol Tartrate 12.5 mg po twice daily on hold due to hypotensive episodes Metoprolol T 5 MG I.V Q4H PRN Status: Acute Qualifiers: Atrial fibrillation type: persistent (not longstanding) Qualified Code(s): I48.19 - Other persistent atrial fibrillation (3) Hyponatremia: Hypervolemic hyponatremia. Monitor BMP Plan as above Status: Acute (4) CKD (chronic kidney disease) stage 3, GFR 30-59 ml/min: DESTINY ON CKD Stage 3 2/2 CRS Baseline SCR : 1.3-1.4 Current serum creatinine is 1.2 Because of Poor urine Output transiently : Plan is to give albumin and continue with IV diuresis. Has also been hypotensive to ensure renal perfusion he was continued on dopamine drip @3mcg/kg/min. Monitor BMP Status: Acute (5) Hypertension: Currently Hypotensive Status: Acute Qualifiers: Hypertension type: essential hypertension Qualified Code(s): I10 - Essential (primary) hypertension (6) COPD (chronic obstructive pulmonary disease): Currently not in exacerbation Status: Acute Qualifiers: COPD type: unspecified COPD Qualified Code(s): J44.9 - Chronic obstructive pulmonary disease, unspecified (7) WENDI (obstructive sleep apnea): Uses CPAP at home. 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 fib, CKD Coding Level of Care Code Acute Emergency Communications Dispatcher for [facility] Fwd Diagnoses CHF (congestive heart failure) I50.43 Heart failure chronicity: acute on chronic Heart failure type: combined systolic and diastolic Atrial fibrillation I48.19 Atrial fibrillation type: persistent (not longstanding) Hyponatremia E87.1 CKD (chronic kidney disease) stage 3, GFR 30-59 ml/min N18.30 Hypertension I10 Hypertension type: essential hypertension COPD (chronic obstructive pulmonary disease) J44.9 COPD type: unspecified COPD WENDI (obstructive sleep apnea) G47.33 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
--- NOTE | 2021-08-18 11:04 | PC.SOCIAL ---
IMM Updated Updated pt on IMM. No questions voiced. Provided pt a copy. Initialed, dated, & timed copy in chart.
--- NOTE | 2021-08-18 11:12 | PC.NURSE ---
physician plced orders to rmove villagran catheter. Nurse d/c villagran catheter. Catheter intact upon removal.
--- NOTE | 2021-08-18 12:26 | PC.NURSE ---
Nurse will give morning dose of metoprolol 12.5 now and give 1500 dose a little later per cardiology
[2021-08-18] MEDS: metoprolol tartrate 25 mg Tablet 12.5 MG PO ×3 (12:32→21:57)
--- NOTE | 2021-08-18 13:49 | P.PN_ITS ---
Subjective Subjective: Interval history: He had good UO. HR in 140's. He denies any complaints. No chest pain, palpitations or shortness of breath. His only concern is being cooped up in the hospital. Sunshine catheter was removed this morning. Heart rate remains in 140s. Metoprolol a.m. dose was held. He is -2.1 L this morning. LOS -4.6 L Medications: Reviewed: Yes Medication Review Details: Current Medications Acetaminophen (Acetaminophen 325 Mg Tablet) 650 mg PO Q6H PRN PRN Reason: Mild/Mod Pain Or Temp >/= 101 Amiodarone HCl (Amiodarone 200 Mg Tablet) 200 mg PO 0900,2100 [facility] Atorvastatin Calcium (Atorvastatin 40 Mg Tablet) 20 mg PO DAILY [facility] Last Admin: 08/15/21 10:05 Dose: 20 mg Documented by: Bisacodyl (Bisacodyl 5 Mg Tablet) 10 mg PO DAILY PRN; Protocol PRN Reason: Constipation (see protocol) Furosemide (Furosemide 10 Mg/Ml Sdv 10ml) 80 mg IVP DAILY [facility] Last Admin: 08/15/21 10:06 Dose: 80 mg Documented by: Furosemide (Furosemide 10 Mg/Ml Sdv 4ml) 40 mg IVP Q24H [facility] Last Admin: 08/14/21 18:23 Dose: 40 mg Documented by: Amiodarone HCl 900 mg/Dextrose/ IV Miscellaneous Supplies 518 mls @ 0 mls/hr IV .Q0M [facility]; Protocol Last Titration: 08/15/21 13:02 Dose: Infused Documented by: Albumin Human (Albumin) 25 gm in 100 mls @ 60 mls/hr IV Q8H [facility] Last Titration: 08/15/21 12:05 Dose: Infused Documented by: Metoprolol Tartrate (Metoprolol Tartrate 25 Mg Tablet) 25 mg PO TID [facility] Montelukast Sodium (Montelukast Sodium 10 Mg Tablet) 10 mg PO DAILY [facility] Last Admin: 08/15/21 10:05 Dose: 10 mg Documented by: Naloxone HCl (Naloxone 0.4 Mg/Ml Sdv) 0.1 mg IVP Q2M PRN PRN Reason: OPIATERV Non-Formulary Medication (Tiotropium-Olodaterol [Stiolto Respimat]) 2 puff INHALATION DAILY [facility] Last Admin: 08/14/21 11:00 Dose: 2 puff Documented by: Ondansetron HCl (Ondansetron 2 Mg/Ml Sdv 2 Ml) 4 mg IVP Q8H PRN PRN Reason: vomiting, or N/V if npo Oxycodone/Acetaminophen (Oxycodone-Apap 10-325 Mg Tablet) 1 tab PO Q4H PRN PRN Reason: MODERATE PAIN Last Admin: 08/15/21 13:25 Dose: 1 tab Documented by: Pantoprazole Sodium (Pantoprazole Dr 40 Mg Tablet) 40 mg PO DAILY [facility] Last Admin: 08/15/21 10:06 Dose: 40 mg Documented by: Rivaroxaban (Rivaroxaban 10 Mg Tablet) 20 mg PO DAILY [facility] Last Admin: 08/15/21 10:06 Dose: 20 mg Documented by: Vitals/I&O/Wt Last Vital Signs Temp 97.7 F 08/18/21 11:54 Pulse 133 H 08/18/21 11:54 Resp 14 08/18/21 11:54 BP 99/79 08/18/21 11:54 Pulse Ox 94 08/18/21 11:54 08/17/21 08/18/21 08/18/21 22:59 06:59 14:59 Intake Total 60 / 410.585 150 / 560.585 390 / 390 Output Total 700 / 1800 900 / 2700 1350 / 1350 Balance -640 / -1389.415 -750 / -2139.415 -960 / -960 Weight last 48 hrs Weight 233 lb Physical Exam Narrative: EXAM NARRATIVE: GENERAL: Obese man sitting in chair in no acute distress HEENT: Pupils equal round reactive to light. No pallor or icterus. NECK: increased JVD. No carotid bruit. CARDIOVASCULAR SYSTEM: S1-S2 irregular. Tachycardia present. systolic murmur+ RESPIRATORY SYSTEM: Chest clear to auscultation. No wheezes rhonchi or rubs heard. ABDOMEN: Firm and distended, nontender EXTREMITIES: 4+ edema. 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 No focal neurological deficits. Data : 08/18/21 03:54 08/18/21 06:05 A&P Assessment and plan (1) CHF (congestive heart failure): BiV failure: -RV failure with HFrEF -Currently on Lasix 40 mg IV BID. D/C dopamine. -Intake/output charting and daily weight. -continue on metolazone 5 mg daily. -Repeat limited echo with some decrease in LV and RV function. -He will probably benefit from stress testing once euvolemic. Last stress test was almost 10 years back. Status: Acute Qualifiers: Heart failure chronicity: acute on chronic Heart failure type: combined systolic and diastolic Qualified Code(s): I50.43 - Acute on chronic combined systolic (congestive) and diastolic (congestive) heart failure (2) Atrial fibrillation: -continue on amiodarone 200 mg p.o. twice daily. -recieved digoxin 250 mcg earlier today. start on digoxin 125 mcg daily. -On metoprolol tartrate 12.5 mg 3 times daily. change to 12.5 mg am and 25 mg Pm. Status: Acute Qualifiers: Atrial fibrillation type: persistent (not longstanding) Qualified Code(s): I48.19 - Other persistent atrial fibrillation (3) Hyperlipidemia: Status: Acute Qualifiers: Hyperlipidemia type: mixed hyperlipidemia Qualified Code(s): E78.2 - Mixed hyperlipidemia (4) Hypertension: History of hypertension on irbesartan and amlodipine at home. -Medications on hold due to soft blood pressure Status: Acute Qualifiers: Hypertension type: essential hypertension Qualified Code(s): I10 - Essential (primary) hypertension (5) WENDI (obstructive sleep apnea): Noncompliant to CPAP. Status: Acute Additional A&P Information Moderate pulmonary hypertension Mild to moderate tricuspid valve regurgitation COPD History of thoracoabdominal aneurysm repair. DESTINY on Chronic kidney disease stage 3: Baseline creatinine 1.4; Creatinine down to 1.2 with diuresis. Hyponatremia Thank you for allowing me to participate in patient's care. Please feel free to call with questions or concerns. Attestations Medical Necessity Statement*: Needs hospital stay for A. fib with RVR and CHF Time Spent in Patient Care: 16 - 35 minutes (>than 50% of time spent in counselling and/or direct pt care on unit) . 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
[2021-08-18] MEDS: ondansetron 2 mg/ML SDV 2 mL 4 MG IVP (21:00)
[2021-08-19] VITALS (27 sets, daily range): BP systolic 71–114; BP diastolic 48–74; PULSE 106–156; RESP 13–43; TEMP 36.6–38.1; O2SAT 83–96
--- NOTE | 2021-08-19 08:41 | PC.CHAP ---
Pastoral Care Encounter/Spiritual Assessment Type of Contact [] Declined arabic translator visit [] Patient/Family/Request visit [] Outpatient visit [] Follow-up visit [] Physician referral [] Code/Alert [x] Routine visit [] Staff referral [] Actively dying [] Patient sleeping [] Family support [] [x] Out of room [] Palliative care [] [] Receiving care in room [] Pre-surgical visit [] Trauma [] Long length of stay [] ICU visit [] Other: Relational/Emotional Strength [] Patient feels connected with others/family/visitors/staff [] Distress [] Loneliness/isolation [] Abandonment Spirituality of Patient [] Person of [place] [] Attends Bahai of their [place] [] Believes in Prayer [] Reads Bible or Jew materials [] There are Spiritual issues to be addressed Legal Clerk Interventions [] Prayer [] Active listening [] Non-anxious presence [] Spiritual/emotional support [] Crisis/trauma care [] Spiritual counseling [] Bereavement support [] Provided bereavement packet [] Provided Bible/devotional materials [] Provided toy/stuffed animal, coloring book to patient or family member [] Provided Communion [] Anointing/[place] [] Salvation [] Completed spiritual assessment [] Other: Impact on Illness or Injury [] Angry [] Fearful [] Anxious [] Often cries [] Exhaustion [] Unable to work [] Unable to attend amish [] Unable to walk/stand [] Unable to read [] Unable to drive [] Unable to eat/drink [] Unable to sleep [] Unable to be with family [] Patient intubated [] Other: Summary Time spent with patient
[2021-08-19] MEDS: FUROsemide 10 mg/mL SDV 4mL 40 MG IVP (09:24)
[2021-08-19] MEDS: atorvastatin 40 mg Tablet 20 MG PO (09:25)
[2021-08-19] MEDS: montelukast sodium 10 mg Tablet PO (09:25)
[2021-08-19] MEDS: polyethylene glycol 3350 Pkt 17 gm PO (09:25)
[2021-08-19] MEDS: amiodarone 200 mg Tablet PO ×2 (09:26→21:15)
[2021-08-19] MEDS: pantoprazole DR 40 mg Tablet PO (09:26)
[2021-08-19] MEDS: rivaroxaban 10 mg Tablet 20 MG PO (09:26)
[2021-08-19] MEDS: midodrine 5 mg TABLET 20 MG PO ×3 (09:26→21:14)
[2021-08-19] MEDS: metOLazone 5 MG Tablet PO (09:26)
[2021-08-19] MEDS: docusate sodium 100 mg Capsule PO ×2 (09:26→17:23)
[2021-08-19] MEDS: metoprolol tartrate 25 mg Tablet 12.5 MG PO (09:27)
[2021-08-19 11:24] LABS: Anion Gap 12.1 (5-19); Blood Urea Nitrogen 28 mg/dL (8-23); Calcium 9.8 mg/dL (8.5-10.5); Carbon Dioxide 33 mmol/L (22-29); Chloride 94 mmol/L (98-107); Glomerular Filtration Rate 60.8 mL/min (90-130); Glucose 90 mg/dL (65-115); Osmolality Calculated 287 mOsm/kg (285-295); Potassium 3.1 mmol/L (3.5-5.1); Sodium 136 mmol/L (136-145)
[2021-08-19] MEDS: digoxin 250 mcg Tablet PO (12:00)
[2021-08-19] MEDS: potassium chloride ER 20 mEq Tablet 40 MEQ PO (12:01)
--- NOTE | 2021-08-19 14:38 | XRR_ITS ---
PROCEDURE INFORMATION: Exam: XR Chest Exam date and time: 08/19/2021 2:38 PM Age: 66 years old Clinical indication: Upper abdominal pain. Atrial fibrillation. In the afternoon, the patient was complaining of some right upper quadrant abdominal pain and hiccups. Low blood pressure. TECHNIQUE: Imaging protocol: XR of the chest. Views: 1 view. COMPARISON: CR XR chest 1V portable [id number] 08/13/2021 10:48 AM FINDINGS: Lungs: There is worsening left basilar/retrocardiac opacity likely reflecting pneumonia. Pleural spaces: Small bilateral pleural effusions. No pneumothorax. Heart/Mediastinum: The heart is enlarged. An underlying pericardial effusion is a strong consideration. The main pulmonary arteries appear enlarged suggesting pulmonary arterial hypertension. No gross evidence of pneumomediastinum. Bones/joints: No gross fracture. Small sclerotic lesion in the proximal metaphysis of the left humerus. XR/XR chest 1V portable [id number] IMPRESSION: 1. Cardiomegaly; an underlying pericardial effusion is a strong consideration. 2. The main pulmonary arteries appear enlarged suggesting pulmonary arterial hypertension. 3. Worsening left basilar/retrocardiac opacity likely reflecting pneumonia. 4. Small bilateral pleural effusions. 5. Small sclerotic lesion in the proximal metaphysis of the left humerus that was not visualized previously. Recommend CT of the left humerus to further assess.
--- NOTE | 2021-08-19 15:40 | PM.PN ---
Subjective Subjective: Interval history: Patient was seen multiple times throughout the day Early in the morning, patient examined, he is very frustrated about being here in the hospital, he is frustrated about having blood draws, he does not want any more blood drawn from him, he tells me that he has not had any good meal since he has been in the hospital, he tells me he looks like a junky, he tells me he wants to go home, he tells me that he was able to ambulate yesterday, shortness of breath has improved, no nausea, vomiting, abdominal pain, his edema has improved I discussed with him in detail about his blood draws, as he is on Lasix therapy, remains in A. fib and has low blood pressures up to keep an eye on his creatinine, and his potassium, advised the morbidity and mortality associated with complications of not monitoring, he voiced understanding, all questions answered, but however he still frustrated Patient tells me that he wants to go home, I advised patient that given his drop in ejection fraction, the plan is to either perform a cardiac catheterization or stress test, I will reach out to cardiology, he is again frustrated about staying here in the hospital, advised the morbidity mortality of leaving the hospital AGAINST MEDICAL ADVICE, he voiced understanding, questions answered, agreed to stay, however he still frustrated Patient in the afternoon was complaining of some right upper quadrant abdominal pain, and hiccups, no fevers, no chills, he does have a poor appetite, will do a right upper quadrant ultrasound and a chest x-ray Vitals/I&O/Wt Last Vital Signs Temp 98 F 08/18/21 19:36 Pulse 138 H 08/19/21 12:00 Resp 18 08/19/21 12:00 BP 88/56 08/19/21 12:00 Pulse Ox 90 08/19/21 12:00 08/19/21 08/19/21 08/19/21 06:59 14:59 22:59 Intake Total 100 / 830 440 / 440 Output Total 500 / 4400 300 / 300 Balance -400 / -3570 140 / 140 Weight last 48 hrs Weight 100.868 kg Weight 91.898 kg Weight 105.687 kg Physical Exam Const: COMMON NORMALS: no acute distress and patient oriented x3 Resp: COMMON NORMALS: normal respiratory effort, No retractions, No use of accessory muscles and clear to auscultation bilaterally AUSCULTATION: clear to auscultation bilaterally Cardio: COMMON NORMALS: regular rate, regular rhythm, S1 normal heart sound present and S2 normal heart sound present RATE: regular rate RHYTHM: regular rhythm HEART SOUNDS: S1 normal heart sound present and S2 normal heart sound present GI: COMMON NORMALS: Normal to inspection, nondistended, normoactive bowel sounds present, Soft to palpation and No hepatosplenomegaly present PALPATION: Yes Soft to palpation, No Firmness to palpation present (GI), Yes Tenderness to palpation present (GI) Details: RUQ, No Guarding due to palpation present (GI), No Rigid due to palpation and Yes No hepatosplenomegaly present OTHER: Right upper quadrant tenderness, to palpation, Extremity: NARRATIVE EXTREMITY EXAM: 1+ pitting edema bilateral lower extremities Neuro: COMMON NORMALS: patient oriented x3 Psych: COMMON NORMALS: mental status grossly normal Data : 08/18/21 03:54 08/19/21 10:49 A&P Assessment and plan (1) CHF (congestive heart failure): Decompensated heart failure with reduced ejection fraction. 2D echo: 07/2020: Normal LV size with reduced ejection fraction EF around 40%, diffuse hypokinesia of left ventricle, mildly dilated RV [id number] tricuspid valve regurgitation.Mild mitral and trace of aortic regurgitation. Moderate pulmonic regurgitation with a dilated pulmonary artery Moderate pulmonary hypertension with estimated pulmonary artery peak systolic pressure of 50 mmHg. Repeat 2D echo: 08/23: Normal LV size with diminished LVEF ( 40% ) , Diffuse hypokinesia of the left ventricle,Mildly dilated right ventricle with a slightly diminished ejection fraction. Mild to moderate TR, mild MR, trace AR, BNP over -7 L, mild pitting edema, looks euvolemic Switch to Lasix 40 mg daily Stop albumin therapy Stop metolazone De-escalate off midodrine Replace magnesium Intake output charting Daily weight K>4, MG>2 Cardiac diet Telemetry Continue PT OT, bowel regimen, de-escalate Lasix therapy, possible cardiac catheterization versus stress test tomorrow morning Status: Acute Qualifiers: Heart failure chronicity: acute on chronic Heart failure type: combined systolic and diastolic Qualified Code(s): I50.43 - Acute on chronic combined systolic (congestive) and diastolic (congestive) heart failure (2) Atrial fibrillation: Atrial fibrillation with RVR: Has developed A. fib with RVR this morning He has been on full anticoagulation. Amnio drip stopped Amidarone 200 mg po BID Metoprolol 12.5 mg 3 times daily Start on digoxin 250mcqd Metoprolol T 5 MG I.V Q4H PRN Status: Acute Qualifiers: Atrial fibrillation type: persistent (not longstanding) Qualified Code(s): I48.19 - Other persistent atrial fibrillation (3) Hyponatremia: resolved Monitor BMP Plan as above Status: Acute (4) CKD (chronic kidney disease) stage 3, GFR 30-59 ml/min: DESTINY ON CKD Stage 3 2/2 CRS Baseline SCR : 1.3-1.4 Current serum creatinine is 1.2 Monitor BMP Status: Acute (5) Hypertension: Currently Hypotensive Status: Acute Qualifiers: Hypertension type: essential hypertension Qualified Code(s): I10 - Essential (primary) hypertension (6) COPD (chronic obstructive pulmonary disease): Currently not in exacerbation Status: Acute Qualifiers: COPD type: unspecified COPD Qualified Code(s): J44.9 - Chronic obstructive pulmonary disease, unspecified (7) WENDI (obstructive sleep apnea): Uses CPAP at home. 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: Status: Acute (9) Anasarca: Status: Acute Additional A&P Information CODE STATUS: Full code DVT prophylaxis: Not needed on Xarelto Attestations Medical Necessity Statement*: Patient requires hospitalization for patient with atrial fibrillation RVR, CHF exacerbation, Coding Level of Care Code Acute [facility] for [facility] Diagnoses CHF (congestive heart failure) I50.43 Heart failure chronicity: acute on chronic Heart failure type: combined systolic and diastolic Atrial fibrillation I48.19 Atrial fibrillation type: persistent (not longstanding) Hyponatremia E87.1 CKD (chronic kidney disease) stage 3, GFR 30-59 ml/min N18.30 Hypertension I10 Hypertension type: essential hypertension COPD (chronic obstructive pulmonary disease) J44.9 COPD type: unspecified COPD WENDI (obstructive sleep apnea) G47.33 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
[2021-08-19] MEDS: sodium chloride 0.9% 500 ML IV (16:30)
[2021-08-19] MEDS: sodium chloride 0.9% 1,000 ML 100 ML IV (18:32)
[2021-08-19 18:38] LABS: Basophils % 0.5 %; Hematocrit 34.1 % (42.0-52.0); Hemoglobin 10.8 g/dL (11.7-16.6); Lymphocytes # 0.2 10^3/uL (0.8-4.8); Mean Corpuscular HGB Conc 31.7 g/dL (30.0-36.0); Mean Corpuscular Hemoglobin 24.4 pg (28.0-34.0); Mean Platelet Volume 10.2 fL (7.4-10.4); Monocytes # 0.3 10^3/uL (0.2-0.9); Monocytes % 5.6 %; Neutrophils # 5.47 10^3/uL (1.8-7.7); Neutrophils % 89.9 %; Nucleated Red Blood Cells % 0 %; Platelet Count 120 10^3/cmm (130-400); Red Blood Count 4.43 10^6/uL (4.1-5.3); White Blood Count 6.1 10^3/uL (4.0-10.0)
--- NOTE | 2021-08-19 18:59 | PC.NURSE ---
Shift Note Frequent safety and comfort rounds continue. Orders and/or nursing care completed as indicated. Patient monitored for response to intervention and treatment(s). Education provided includes instructions in medications. Patient somewhat understands info.heart rate elevated all shift (afib with 120's-160) and bp low.po digoxin,a.m. dose metoprolol,ns fluid bolus (500 cc),albumin,and ivf's began per order dr manuel. Will continue to monitor.
[2021-08-19 19:03] LABS: Alanine Aminotransferase 54 U/L (0-41); Albumin Level 3.4 g/dL (3.5-5.2); Alkaline Phosphatase 262 IU/L (40-130); Anion Gap 16.2 (5-19); Aspartate Amino Transferase 183 U/L (0-40); Blood Urea Nitrogen 36 mg/dL (8-23); C Reactive Protein 162.2 mg/L (0.0-4.9); Calcium 9.5 mg/dL (8.5-10.5); Carbon Dioxide 29 mmol/L (22-29); Chloride 97 mmol/L (98-107); Globulin 2.2 g/dL (1.3-4.6); Glomerular Filtration Rate 43.6 mL/min (90-130); Glucose 77 mg/dL (65-115); Osmolality Calculated 295 mOsm/kg (285-295); Potassium 3.2 mmol/L (3.5-5.1); Sodium 139 mmol/L (136-145); Total Bilirubin 4.4 mg/dL (0.15-1.2); Total Protein 5.6 g/dL (6.6-8.7)
[2021-08-19 19:08] LABS: Procalcitonin 1.78 ng/mL (0-0.5)
[2021-08-19 19:40] LABS: Slide Review Slide Review Perform
--- NOTE | 2021-08-19 19:47 | PC.NURSE ---
Received report from ROHAN Jin. Patient resting in bed with eyes closed. Eyes open spontaneously with verbal stimuli. Patient currently has fluid running at 100ml/hr per Dr Haider due to decreased blood pressure and increased heart rate 130s to 140s. Dr Haider is aware of patient condition. Patient denies needs presently. No other distress observed.
--- NOTE | 2021-08-19 20:32 | PC.NURSE ---
Patient continues to have heart rate 140s to 150s. Current BP 81/53. SpO2 at 81%. Informed RT. Assessment performed. Repositioned patient for comfort. Patient responds appropriately. RT discussing possible cpap placement as ordered and patient has been refusing to use. Patient currently O2 at 5L NC with SpO2 at 91%.
--- NOTE | 2021-08-19 21:07 | PM.PN ---
Subjective Subjective: Interval history: Continues to be in A. fib with RVR not feeling well blood pressure is on the lower side. He is off dopamine Medications: Reviewed: Yes Medication Review Details: Current Medications Acetaminophen (Acetaminophen 325 Mg Tablet) 650 mg PO Q6H PRN PRN Reason: Mild/Mod Pain Or Temp >/= 101 Amiodarone HCl (Amiodarone 200 Mg Tablet) 200 mg PO 0900,2100 [facility] Atorvastatin Calcium (Atorvastatin 40 Mg Tablet) 20 mg PO DAILY [facility] Last Admin: 08/15/21 10:05 Dose: 20 mg Documented by: Bisacodyl (Bisacodyl 5 Mg Tablet) 10 mg PO DAILY PRN; Protocol PRN Reason: Constipation (see protocol) Furosemide (Furosemide 10 Mg/Ml Sdv 10ml) 80 mg IVP DAILY [facility] Last Admin: 08/15/21 10:06 Dose: 80 mg Documented by: Furosemide (Furosemide 10 Mg/Ml Sdv 4ml) 40 mg IVP Q24H [facility] Last Admin: 08/14/21 18:23 Dose: 40 mg Documented by: Amiodarone HCl 900 mg/Dextrose/ IV Miscellaneous Supplies 518 mls @ 0 mls/hr IV .Q0M [facility]; Protocol Last Titration: 08/15/21 13:02 Dose: Infused Documented by: Albumin Human (Albumin) 25 gm in 100 mls @ 60 mls/hr IV Q8H [facility] Last Titration: 08/15/21 12:05 Dose: Infused Documented by: Metoprolol Tartrate (Metoprolol Tartrate 25 Mg Tablet) 25 mg PO TID [facility] Montelukast Sodium (Montelukast Sodium 10 Mg Tablet) 10 mg PO DAILY [facility] Last Admin: 08/15/21 10:05 Dose: 10 mg Documented by: Naloxone HCl (Naloxone 0.4 Mg/Ml Sdv) 0.1 mg IVP Q2M PRN PRN Reason: OPIATERV Non-Formulary Medication (Tiotropium-Olodaterol [Stiolto Respimat]) 2 puff INHALATION DAILY [facility] Last Admin: 08/14/21 11:00 Dose: 2 puff Documented by: Ondansetron HCl (Ondansetron 2 Mg/Ml Sdv 2 Ml) 4 mg IVP Q8H PRN PRN Reason: vomiting, or N/V if npo Oxycodone/Acetaminophen (Oxycodone-Apap 10-325 Mg Tablet) 1 tab PO Q4H PRN PRN Reason: MODERATE PAIN Last Admin: 08/15/21 13:25 Dose: 1 tab Documented by: Pantoprazole Sodium (Pantoprazole Dr 40 Mg Tablet) 40 mg PO DAILY [facility] Last Admin: 08/15/21 10:06 Dose: 40 mg Documented by: Rivaroxaban (Rivaroxaban 10 Mg Tablet) 20 mg PO DAILY [facility] Last Admin: 08/15/21 10:06 Dose: 20 mg Documented by: Vitals/I&O/Wt Last Vital Signs Temp 98 F 08/19/21 19:42 Pulse 142 H 08/19/21 20:30 Resp 13 08/19/21 20:30 BP 81/56 08/19/21 20:30 Pulse Ox 93 08/19/21 20:30 08/19/21 08/19/21 08/19/21 06:59 14:59 22:59 Intake Total 100 / 830 540 / 540 720 / 1260 Output Total 500 / 4400 300 / 300 800 / 1100 Balance -400 / -3570 240 / 240 -80 / 160 Weight last 48 hrs Weight 222 lb 6 oz Weight 202 lb 9.6 oz Weight 233 lb Physical Exam Narrative: EXAM NARRATIVE: GENERAL: Patient is awake but lethargic NECK: No jugular vein distension. HEENT: No cyanosis. No icterus. No pallor. HEART: Irregularly S1 and S2. No murmur, rub or gallop. LUNGS: Reduced intake entry no crepitus bilaterally. ABDOMEN: Soft, nontender and nondistended. Positive bowel sounds. No guarding, rebound or tenderness. CENTRAL NERVOUS SYSTEM: Grossly nonfocal. EXTREMITIES: Lower extremities without edema bilaterally. Data : 08/19/21 18:15 08/19/21 18:15 A&P Assessment and plan (1) CHF (congestive heart failure): At this point I believe patient is overcompensated I will hold Lasix and give him backs fluid 500 mL in the form of bolus and then 1 mL for the rest of primary medical with altogether 1 L.. Status: Acute Qualifiers: Heart failure chronicity: acute on chronic Heart failure type: combined systolic and diastolic Qualified Code(s): I50.43 - Acute on chronic combined systolic (congestive) and diastolic (congestive) heart failure (2) Atrial fibrillation: I will continue digoxin will check dig level tomorrow. Continue amiodarone and beta-quique Status: Acute Qualifiers: Atrial fibrillation type: persistent (not longstanding) Qualified Code(s): I48.19 - Other persistent atrial fibrillation (3) Hyperlipidemia: Continue current regimen Status: Acute Qualifiers: Hyperlipidemia type: mixed hyperlipidemia Qualified Code(s): E78.2 - Mixed hyperlipidemia (4) Hypertension: Blood pressure is on the lower side I will hold Lasix and give him back some fluid. Status: Acute Qualifiers: Hypertension type: essential hypertension Qualified Code(s): I10 - Essential (primary) hypertension (5) WENDI (obstructive sleep apnea): Noncompliant to CPAP. Status: Acute Additional A&P Information Moderate pulmonary hypertension Mild to moderate tricuspid valve regurgitation COPD History of thoracoabdominal aneurysm repair. DESTINY on Chronic kidney disease stage 3: Baseline creatinine 1.4; Creatinine down to 1.2 with diuresis. Hyponatremia Thank you for allowing me to participate in patient's care. Please feel free to call with questions or concerns. Attestations Medical Necessity Statement*: Patient require continuation hospitalization for above defined care. Coding Level of Care Code Established Pt Acute Home [facility] for [facility] Patient Type Established History Detailed Exam Detailed Medical Decision Making Moderate Complexity Diagnoses CHF (congestive heart failure) I50.43 Heart failure chronicity: acute on chronic Heart failure type: combined systolic and diastolic Atrial fibrillation I48.19 Atrial fibrillation type: persistent (not longstanding) Hyperlipidemia E78.2 Hyperlipidemia type: mixed hyperlipidemia Hypertension I10 Hypertension type: essential hypertension WENDI (obstructive sleep apnea) G47.33
--- NOTE | 2021-08-19 21:20 | PC.NURSE ---
Patient wanting to refuse medications this evening. Instructed patient on how important his medications are and patient was able to swallow his medications for me. Metoprolol was held due to persistently low BP with current being 71/49. Informed Dr Haider of current patient condition. Doctor to come see patient.
--- NOTE | 2021-08-19 21:55 | PC.NURSE ---
Dr Haider in to see patient. Received verbal orders to begin Levophed drip to keep MAP >65 and/or SBP >100. Also, plan for SYBIL guided cardioversion 08/20/21 at 1200. RBVO Patient to transfer to ICU. Report called to ROHAN Arthur
--- NOTE | 2021-08-19 22:30 | PC.NURSE ---
Arrived from CSU via bed, AO x3, hard to understand, follows commands, no c/o at this time, not symptomatic of BP 81/55, HR irregular with afib in the 120's to one teens
[2021-08-20] VITALS (51 sets, daily range): BP systolic 86–138; BP diastolic 57–87; PULSE 89–145; RESP 13–45; TEMP 36.3–36.7; O2SAT 68–98
--- NOTE | 2021-08-20 | XR_ITS ---
WS: [id number] Portable AP upright chest, 08/20/2021, 0944 hours. Clinical Data: PICC LINE REPOSITION Comparison: Portable chest, 08/20/2021, 0937 hours. Findings: The left PICC line has been repositioned and it now ends in the midportion of the superior vena cava. The remainder of the chest remains the same. XR/XR chest 1V portable [id number] Impression: Left PICC line now ends in midportion of superior vena cava.
[2021-08-20 04:18] LABS: Hematocrit 35.5 % (42.0-52.0); Mean Corpuscular Hemoglobin 24.7 pg (28.0-34.0); Mean Corpuscular Volume 79.8 fl (80-94); Mean Platelet Volume 10.9 fL (7.4-10.4); Platelet Count 140 10^3/cmm (130-400); Red Blood Count 4.45 10^6/uL (4.1-5.3); Red Cell Distribution Width 18.1 % (12.1-15.1); White Blood Count 13.5 10^3/uL (4.0-10.0)
--- NOTE | 2021-08-20 04:32 | CTR_ITS ---
PROCEDURE INFORMATION: Exam: CT Abdomen And Pelvis Without Contrast Exam date and time: 08/20/2021 4:32 AM Age: 66 years old Clinical indication: Pain and abnormal findings; Abnormal lab test; Elevated liver enzymes; Abdominal pain; Localized; Right upper quadrant (ruq); Prior surgery; Surgery type: Thoracic aorta. Hernia repair. ; Patient HX: Ruq pain with elevated bilirubin and lfts. No contrast due to declined renal function. ; Additional info: Ruq abdominal pain, elevated t bili, elveted lft TECHNIQUE: Imaging protocol: Computed tomography of the abdomen and pelvis without contrast. Radiation optimization: All CT scans at this facility use at least one of these dose optimization techniques: automated exposure control; mA and/or kV adjustment per patient size (includes targeted exams where dose is matched to clinical indication); or iterative reconstruction. COMPARISON: CT abdomen pelvis w con* [id number] 04/30/2020 3:30 PM RADIATION DOSE METRICS: Total DLP (mGy-cm): 1804.42 FINDINGS: Lungs: The lung bases are clear. No effusion Pleural spaces: Small bilateral pleural effusions. Liver: Normal. No mass. Gallbladder and bile ducts: Gallbladder wall is thickened. There is pericholecystic fluid. High density sludge present in the neck of the gallbladder. 7 mm calcification is present in the region of the common duct. Pancreas: Pancreas is fatty replaced. Spleen: Normal. No splenomegaly. Adrenal glands: Bilateral indeterminate adrenal nodules, the largest is on the left and measures 3.3 x 1.8 cm. If further evaluation is required recommend outpatient MRI. Kidneys and ureters: The 6 mm nonobstructing left renal pelvis stone. 2 mm nonobstructing right renal pelvis stone. Stomach and bowel: Unremarkable. No obstruction. No mucosal thickening. Appendix: The appendix is not positively identified. However, no secondary changes of appendicitis are present. Intraperitoneal space: There is a small amount of ascites. Vasculature: Unremarkable. No abdominal aortic aneurysm. Lymph nodes: Unremarkable. No enlarged lymph nodes. Urinary bladder: Unremarkable as visualized. Reproductive: Unremarkable as visualized. Bones/joints: Unremarkable. No acute fracture. Soft tissues: There is anasarca. CT/CT abdomen pelvis wo con [id number] IMPRESSION: 1. Choledocholithiasis with acute cholecystitis. Stones/sludge in the neck of the gallbladder. 2. Small bilateral pleural effusions. 3. There is a small amount of ascites. 4. Bilateral indeterminate adrenal nodules, the largest is on the left and measures 3.3 x 1.8 cm. If further evaluation is required recommend outpatient MRI. 5. The 6 mm nonobstructing left renal pelvis stone. 6. 2 mm nonobstructing right renal pelvis stone. 7. The appendix is not positively identified. However, no secondary changes of appendicitis are present. 8. There is anasarca. COMMENTS: Consistent with the [employer]'s Incidental Findings Committee white paper (J Am Oli Radiol 2017): For any incidental adrenal lesion greater than 1 cm but less than 4 cm classified in this report as benign, likely benign, or containing fat (including classification as an adenoma or myelolipoma), no follow-up imaging is recommended per consensus recommendations based on imaging criteria. Further lab evaluation could be pursued if warranted based on clinical findings. Radiation Dose CTDIVOL = (mGy): DLP = 1804.42 (mGy-cm)
[2021-08-20] MEDS: sodium chloride 0.9% 1,000 ML 100 ML IV ×3 (04:36→20:33)
[2021-08-20 04:38] LABS: Digoxin 1.7 ng/mL (0.6-1.2)
[2021-08-20] MEDS: piperacillin-tazobactam 3.375 GM in sodium chloride 0.9% (plus) 50 ML IV ×3 (04:40→20:35)
[2021-08-20 04:52] LABS: Alanine Aminotransferase 65 U/L (0-41); Albumin Level 3.5 g/dL (3.5-5.2); Alkaline Phosphatase 267 IU/L (40-130); Anion Gap 12.6 (5-19); Aspartate Amino Transferase 224 U/L (0-40); Blood Urea Nitrogen 38 mg/dL (8-23); Calcium 9.5 mg/dL (8.5-10.5); Carbon Dioxide 33 mmol/L (22-29); Chloride 96 mmol/L (98-107); Globulin 2.5 g/dL (1.3-4.6); Glomerular Filtration Rate 33.7 mL/min (90-130); Glucose 89 mg/dL (65-115); NT Pro B Type Natriuretic Pept 29391 pg/mL (0-125); Osmolality Calculated 295 mOsm/kg (285-295); Phosphorus 4.1 mg/dL (2.5-4.5); Potassium 3.6 mmol/L (3.5-5.1); Sodium 138 mmol/L (136-145); Total Bilirubin 5.8 mg/dL (0.15-1.2)
[2021-08-20 05:00] LABS: Slide Review Slide Review Perform
[2021-08-20 05:01] LABS: Absolute Neutrophil 11.9 10^3/cmm (1.4-6.5); Absolute Segmented Neutrophil 9.3 10/cmm (1.6-7.1); Band Neutrophils Absolute 2.6 10^3/cmm (0.0-1.2); Eosinophils 0 %; Lymphocytes 5 %; Lymphocytes Absolute 0.7 10^3/cmm (1.2-3.4); Monocytes Absolute 0.8 10^3/cmm (0.1-0.6); Platelet Estimate Normal (Normal); Segmented Neutrophils 69 %; Total Cells Counted 100 (0-100); Toxic Vacuolation 1+
[2021-08-20 05:08] LABS: Procalcitonin 3.56 ng/mL (0-0.5)
[2021-08-20 05:18] LABS: C Reactive Protein 182.1 mg/L (0.0-4.9); Gamma Glutamyl Transferase 116 U/L (8-61); Lipase 61 U/L (13-60)
--- NOTE | 2021-08-20 06:00 | US_ITS ---
WS: [id number] ULTRASOUND ABDOMEN LIMITED CLINICAL INFORMATION: RUQ use, gallbladder and liver COMPARISON: None. FINDINGS: Liver Size: Enlarged Craniocaudal length: 17.3 cm. Echogenicity: Diffuse fatty infiltration Surface nodularity: None. Mass (size and location): None. Bile ducts Intrahepatic ducts: Normal. Common bile duct diameter: 0.6 cm. Gallbladder Sludge and cholelithiasis Gallstones: Present Gallbladder sludge: Present Gallbladder wall thickenin.0 mm Pericholecystic fluid: Present Sonographic Miranda sign: Absent. Pancreas Not visualized Right kidney: Normal. Hydronephrosis: None. Size: 12.0 cm x 6.5 cm x 6.7 cm. Abdominal aorta and IVC Visualized portions are normal. Ascites: Present. Right pleural effusion. US/US abdomen limited [id number] IMPRESSION: 1. Hepatomegaly with diffuse fatty infiltration. 2. Small amount of perihepatic ascites. 3. Sludge and cholelithiasis. Gallbladder calculus in the neck of the gallblad khalida. Thickened gallbladder wall measuring 8.0 mm with pericholecystic fluid. Fi ndings suspicious for cholecystitis. Some of this may be related to hepatic dis ease. 4. Normal common bile duct. 5. Right pleural effusion. 6. No hydronephrosis in right kidney.
[2021-08-20 07:52] LABS: Lactate (Lactic Acid level) 1.4 mmol/L (0.5-2.2)
[2021-08-20] MEDS: vancomycin 1,500 MG/300 ML PIGGYBACK 200 MG IV (07:59)
--- NOTE | 2021-08-20 09:20 | SUR.PREOP ---
TIME OUT FOR PICC LINE INSERTION
--- NOTE | 2021-08-20 09:33 | P.CONIM_ITS ---
Providers/Reason For Consult Consulting Physician/Specialty*: General Surgery Neil Flores MD Reason for Consult*: Acute cholecystitis. Attending Physician: Alexis Lam MD Primary Care Provider: ALEJA Oropeza History of Present Illness History of Present Illness Lidia Ruvalcaba is a 66 year old male currently being treated for congestive heart failure/chronic heart failure, atrial fibrillation with RVR. He apparently has been diuresed significantly since he was admitted. He says 2 or 3 days ago he developed some right upper quadrant discomfort which has persisted. Imaging this morning revealed changes consistent with acute cholecystitis. The CAT scan was read as concerning for choledocholithiasis, but a subsequent ultrasound did not reveal an obvious problem with the common bile duct. The patient's liver function studies are elevated. The patient denies any symptoms of right upper quadrant pain before coming into the hospital. He has not had any food intolerances. He says he is known that he has had a gallstone in the past, but in short, has not been experiencing any convincing ongoing symptoms of biliary colic. Review of Systems General: Reports: 10 or more systems reviewed and unremarkable except in HPI and below Const: Reports: change in weight (Recent significant weight gain on presentati on) Resp: Reports: dyspnea (On presentation) GI: Reports: abdominal pain Musc: Reports: extremity swelling (On presentation) Meds/Allergies Home Medications and Allergies Home Medications Medication Instructions Recorded Confirmed Last Taken Type irbesartan 150 mg tablet 150 mg PO DAILY 12/27/19 08/13/21 08/13/21 History pantoprazole 40 mg tablet,delayed 40 mg PO DAILY 12/27/19 08/13/21 08/13/21 History release simvastatin 20 mg tablet 20 mg PO DAILY 12/27/19 08/13/21 08/13/21 History montelukast 10 mg PO DAILY 08/20/20 08/13/21 08/13/21 History amiodarone 200 mg tablet 200 mg PO DAILY #90 tab 04/14/21 08/13/21 08/13/21 Rx amlodipine 10 mg tablet 10 mg PO DAILY #90 tab 04/14/21 08/13/21 08/13/21 Rx rivaroxaban 20 mg tablet 20 mg PO DAILY #90 tab 04/14/21 08/13/21 08/13/21 Rx tiotropium 2.5 mcg-olodaterol 2.5 2 puff INHALATION DAILY #4 g 04/14/21 08/13/21 08/13/21 Rx mcg/actuation mist for inhalation Allergies Allergy/AdvReac Type Severity Reaction Status Date / Time No Known Allergies Allergy Verified 04/14/21 14:05 Current Medications Current Medications Generic Name Dose Route Start Last Admin Trade Name Freq PRN Reason Stop Dose Admin Amiodarone HCl 200 mg 08/15/21 14:20 08/19/21 21:15 Amiodarone 200 Mg Tablet PO 200 mg 0900,2100 HERMINIO Administration Atorvastatin Calcium 20 mg 08/14/21 09:00 08/19/21 09:25 Atorvastatin 40 Mg Tablet PO 20 mg DAILY HERMINIO Administration Digoxin 250 mcg 08/19/21 11:30 08/19/21 12:00 Digoxin 250 Mcg Tablet PO 250 mcg DAILY HERMINIO Administration Docusate Sodium 100 mg 08/18/21 09:00 08/19/21 17:23 Docusate Sodium 100 Mg Capsule PO 100 mg BID HERMINIO Administration Dopamine HCl/Dextrose 400 mg in 250 mls @ 19.476 mls/hr 08/15/21 20:45 08/20/21 00:21 Intropin Drip IV Not Given CONT HERMINIO Protocol 5 MCG/KG/MIN Albumin Human 25 gm in 100 mls @ 60 mls/hr 08/19/21 17:00 08/20/21 00:46 Albumin IV 60 mls/hr Q8H HERMINIO Administration Sodium Chloride 1,000 mls @ 75 mls/hr 08/19/21 18:15 08/20/21 04:36 Sodium Chloride 0.9% IV 100 mls/hr .[id number] HERMINIO Administration Piperacillin Sod/Tazobactam 50 mls @ 12.5 mls/hr 08/20/21 05:00 08/20/21 04:40 Sod 3.375 gm/ Sodium Chloride IV 12.5 mls/hr Q8H HERMINIO Administration Protocol Vancomycin/PEG/NADA/Lysine/Water 1,500 mg in 300 mls @ 200 mls/hr 08/20/21 07:30 08/20/21 07:59 Vancocin IV 200 mls/hr Q24H HERMINIO Administration Metoprolol Tartrate 5 mg 08/15/21 22:34 08/17/21 09:55 Metoprolol Tartrate 1 Mg/1 Ml Sdv 5 Ml IVP 5 mg Q4H PRN Administration HEART RATE-HIGH Metoprolol Tartrate 12.5 mg 08/16/21 14:15 08/19/21 21:15 Metoprolol Tartrate 25 Mg Tablet PO Not Given TID HERMINIO Midodrine 20 mg 08/19/21 16:30 08/19/21 21:14 Midodrine 5 Mg Tablet PO 20 mg TID HERMINIO Administration Montelukast Sodium 10 mg 08/14/21 09:00 08/19/21 09:25 Montelukast Sodium 10 Mg Tablet PO 10 mg DAILY HERMINIO Administration Non-Formulary Medication 2 puff 08/14/21 11:30 08/19/21 09:52 Tiotropium-Olodaterol [Stiolto Respimat] INHALATION Not Given DAILY HERMINIO Ondansetron HCl 4 mg 08/13/21 14:05 08/18/21 21:00 Ondansetron 2 Mg/Ml Sdv 2 Ml IVP 4 mg Q8H PRN Administration vomiting, or N/V if npo Pantoprazole Sodium 40 mg 08/14/21 09:00 08/19/21 09:[address] 40 Mg Tablet PO 40 mg DAILY HERMINIO Administration Polyethylene Glycol 17 gm 08/18/21 09:00 08/19/21 09:25 Polyethylene Glycol 3350 Pkt 17 Gm PO 17 gm DAILY HERMINIO Administration Rivaroxaban 20 mg 08/14/21 09:00 08/19/21 09:26 Rivaroxaban 10 Mg Tablet PO 20 mg DAILY HERMINIO Administration PFSH Acute PFSH: Medical History Anticoagulation adequate with anticoagulant therapy Xarelto Atrial fibrillation Converted to sinus rhythm after given amiodarone. Will discharge on amiodarone with follow-up to cardiology. 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 Surgical History History of hernia repair Status post thoracic aortic aneurysm repair Family History Father CAD (coronary artery disease) Myocardial infarction Other Cancer Social History Smoking and tobacco status: former smoker Quit status (tobacco): has quit using tobacco Year quit tobacco: 1980 - 0.5 PPD x 8 Years Second hand smoke exposure: Yes Smoking risk assessment/counseling performed?: No Alcohol intake: current Alcohol intake frequency: holidays/special occasions only Desire information about alcohol rehabilitation?: No Counseling given: No Lives independently: Yes Household members: none Marital status: service: No Current occupational status: disabled Pets and animals: Yes History of recent travel: No Current gender identity: Male Vitals/I&O/Wt Last Vital Signs Temp 98 F 08/20/21 07:49 Pulse 100 08/20/21 07:49 Resp 17 08/20/21 07:49 BP 117/74 08/20/21 07:49 Pulse Ox 92 08/20/21 07:49 08/19/21 08/20/21 08/20/21 22:59 06:59 14:59 Intake Total 840 / 2380 1000 / 2380 Output Total 800 / 1100 Balance 40 / 1280 1000 / 1280 Weight last 48 hrs Weight 223 lb Weight 222 lb 6 oz Weight 202 lb 9.6 oz Physical Exam Narrative: EXAM NARRATIVE: The patient was encountered in his room in the intensive care unit. He does not seem like he wants to converse much. The pupils seem equal. The lungs reveal some scattered rhonchi. The neck is free of any bruits. The cardiac rhythm is irregularly irregular. The abdomen is moderately obese and somewhat protrude Bass[place]. The patient has minimal epigastric tenderness but impressive right upper quadrant tenderness on exam. Bowel sounds are infrequent. The extremities reveal no significant edema. Data Labs: Other Labs: Laboratory Tests 08/20/21 08/20/21 03:19 03:19 Total Bilirubin 5.8 H GGT 116 H AST 224 H ALT 65 H Alkaline Phosphata se 267 H Micro: Micro: Microbiology 08/20/21 07:20 Blood Culture - Pr eliminary Blood SPECIMEN [facility] 08/20/21 07:25 Blood Culture - Pr eliminary Blood SPECIMEN [facility] Imaging^: CT Abd/Pel: Radiologist's impression: CT abdomen/pelvis 08/20/2021 IMPRESSION: 1. Choledocholithiasis with acute cholecystitis. Stones/sludge in the neck of the gallbladder. 2. Small bilateral pleural effusions. 3. There is a small amount of ascites. 4. Bilateral indeterminate adrenal nodules, the largest is on the left and measures 3.3 x 1.8 cm. If further evaluation is required recommend outpatient MRI. 5. The 6 mm nonobstructing left renal pelvis stone. 6. 2 mm nonobstructing right renal pelvis stone. 7. The appendix is not positively identified. However, no secondary changes of appendicitis are present. 8. There is anasarca. US: Radiologist's impression: Right upper quadrant ultrasound 08/20/2021 IMPRESSION: 1. Hepatomegaly with diffuse fatty infiltration. 2. Small amount of perihepatic ascites. 3. Sludge and cholelithiasis. Gallbladder calculus in the neck of the gallbladder. Thickened gallbladder wall measuring 8.0 mm with pericholecystic fluid. Findings suspicious for cholecystitis. Some of this may be related to hepatic disease. 4. Normal common bile duct. 5. Right pleural effusion. 6. No hydronephrosis in right kidney. Echo: Radiologist's impression: Echocardiogram 08/13/2021 CONCLUSIONS: 1. Mildly dilated left ventricle. Moderately decreased left ventricular systolic function. Left ventricular ejection fraction is estimated at 35 %. Global left ventricular hypokinesis. Flattened septum in systole consistent with right ventricle pressure overload. 2. Moderate mitral valve regurgitation. Moderate to severe tricuspid valve regurgitation. 3. Pulmonary artery pressure estimated at 4. Moderate biatrial enlargement. 5. Right pleural effusion. Trivial pericardial effusion 6. When compared to previous echocardiogram dated 08/23/20, left and right ventricle systolic function may have decreased somewhat. A&P Assessment and plan (1) Acute cholecystitis due to biliary calculus: There is no question that the patient's gallbladder is inflamed and would benefit from drainage. The patient is not a good surgical candidate but I am awaiting a phone call from Dr. Erwin to see if he would be willing to at least place a cholecystostomy tube. If he is, the other issue currently is that the patient is not sure he wants to go through such a procedure. He is already aware that he will continue to worsen in all likelihood without it. If Dr. Erwin is willing to proceed, I will rediscuss the issue with the patient. Status: Acute (2) Choledocholithiasis: This was read as being present on the CAT scan, but the ultrasound seems to show a normal common bile duct. The patient's liver function studies are certainly elevated but this still could all be secondary to acute cholecystitis. If a cholecystostomy tube is placed and the liver function studies do not improve, the patient will need to go for an ERCP. Status: Acute (3) Elevated LFTs: As above. Status: Acute Consult Attestations Medical Necessity Statement: See admitting service's notation. Coding Level of Care Code Acute Board Member for [facility] Diagnoses Acute cholecystitis due to biliary calculus K80.00 Choledocholithiasis K80.50 Elevated LFTs R79.89
--- NOTE | 2021-08-20 09:37 | XR_ITS ---
WS: [id number] Portable AP semiupright chest, 08/20/2021 Clinical Data: picc insertion Comparison: Portable chest, 08/19/2021 Findings: The left PICC line has been inserted and ends at the cavoatrial junction. No pneumothorax i s seen. The remainder of the chest findings is the same. XR/XR chest 1V portable [id number] Impression: Left PICC line and right caval atrial junction.
--- NOTE | 2021-08-20 09:59 | PC.CHAP ---
Pastoral Care Encounter/Spiritual Assessment Type of Contact [] Declined acute care physical therapist visit [] Patient/Family/Request visit [] Outpatient visit [] Follow-up visit [] Physician referral [] Code/Alert [x] Routine visit [] Staff referral [] Actively dying [] Patient sleeping [] Family support [] [] Out of room [] Palliative care [] [] Receiving care in room [] Pre-surgical visit [] Trauma [] Long length of stay [x] ICU visit [] Other: Relational/Emotional Strength [] Patient feels connected with others/family/visitors/staff [] Distress [] Loneliness/isolation [] Abandonment Spirituality of Patient [] Person of [place] [] Attends Gnosticist of their [place] [] Believes in Prayer [] Reads Bible or Tenriism materials [] There are Spiritual issues to be addressed Unix Administrator Interventions [x] Prayer [x] Active listening [x] Non-anxious presence [x] Spiritual/emotional support [] Crisis/trauma care [] Spiritual counseling [] Bereavement support [] Provided bereavement packet [] Provided Bible/devotional materials [] Provided toy/stuffed animal, coloring book to patient or family member [] Provided Communion [] Anointing/[place] [] Salvation [x] Completed spiritual assessment [] Other: Impact on Illness or Injury [] Angry [] Fearful [] Anxious [] Often cries [] Exhaustion [] Unable to work [] Unable to attend spiritism [] Unable to walk/stand [] Unable to read [] Unable to drive [] Unable to eat/drink [] Unable to sleep [] Unable to be with family [] Patient intubated [] Other: Summary patient not happy being in hospital... no conversation.. but allowed acute care physical therapist to pray Time spent with patient 5 min
[2021-08-20] MEDS: atorvastatin 40 mg Tablet 20 MG PO (10:22)
[2021-08-20] MEDS: metoprolol tartrate 25 mg Tablet 12.5 MG PO ×3 (10:23→20:35)
[2021-08-20] MEDS: pantoprazole DR 40 mg Tablet PO (10:23)
[2021-08-20] MEDS: docusate sodium 100 mg Capsule PO ×2 (10:25→17:43)
[2021-08-20] MEDS: midodrine 5 mg TABLET 20 MG PO ×3 (10:25→20:35)
[2021-08-20] MEDS: digoxin 250 mcg Tablet PO (10:25)
[2021-08-20] MEDS: amiodarone 200 mg Tablet PO ×2 (10:28→20:35)
[2021-08-20] MEDS: montelukast sodium 10 mg Tablet PO (10:28)
[2021-08-20 12:00] LABS: INR 4.13 (0.8-1.2)
--- NOTE | 2021-08-20 12:09 | PC.SOCIAL ---
IMM Not Updated Pg. 2 of IMM not updated; patient not anticipated to discharge within the next 48hours.
[2021-08-20 14:01] LABS: SARS Covid-2 Antigen Negative (Negative)
[2021-08-20 15:08] LABS: Alanine Aminotransferase 49 U/L (0-41); Albumin Level 3.3 g/dL (3.5-5.2); Alkaline Phosphatase 194 IU/L (40-130); Blood Urea Nitrogen 39 mg/dL (8-23); C Reactive Protein 168.2 mg/L (0.0-4.9); Carbon Dioxide 30 mmol/L (22-29); Chloride 96 mmol/L (98-107); Globulin 2.4 g/dL (1.3-4.6); Glucose 85 mg/dL (65-115); Osmolality Calculated 293 mOsm/kg (285-295); Sodium 137 mmol/L (136-145); Total Bilirubin 4.7 mg/dL (0.15-1.2); Total Protein 5.7 g/dL (6.6-8.7)
[2021-08-20 15:11] LABS: Anion Gap 15.3 (5-19); Aspartate Amino Transferase 130 U/L (0-40); Potassium 4.3 mmol/L (3.5-5.1)
[2021-08-20 15:15] LABS: Procalcitonin 2.46 ng/mL (0-0.5)
[2021-08-20] MEDS: acetaminophen 325 mg Tablet 650 MG PO (15:31)
--- NOTE | 2021-08-20 17:23 | PM.PN ---
Subjective Subjective: Interval history: Patient was seen this morning, he was placed in the ICU, due to low blood pressures, was placed on Levophed, in atrial fibrillation with heart rates in the high 130s to 140s, T-max 100.5 overnight, he denies any right upper quadrant pain, does look jaundiced, no nausea, no vomiting, advised patient that he has choledocholithiasis with acute cholecystitis, he requires an urgent ERCP, procedure, however all hospital staff called on ICU divert, discussed plans for antibiotics, and cholecystostomy tube, discussed the morbidity of personality associate with choledocholithiasis, cholecystitis, and possible acute ascending cholangitis, advised of morbidity and mortality associated, hypersensitive, all questions answered, patient is quite agitated because he did not get sleep at night, and not allowing him to eat or drink I also spoke to patient's 2 sisters, Chante and Mary Lou about patient's hospitalization, his CHF, his diuresis, his atrial fibrillation, and his development of worsening A. fib and hypotension likely secondary to sepsis associate with the acute cholecystitis and choledocholithiasis, currently or medically managing him with broad-spectrum antibiotic therapy, and cholecystostomy tube placement, however he will require an ERCP, sooner the better, as he is at high risk of acute ascending cholangitis, sepsis, septic shock, significant morbidity mortality, however I have called over 20 hospitals in [place], most hospitals in [facility], but are on ICU divert, or are full and have no beds, I will keep calling. Advised the critical nature of patient's diagnosis, currently his prognosis is guarded, status stable Plans for cholecystostomy tubes have been delayed until tomorrow, as patient's INR was 4, will give FFP recheck INR, plan on cholecystostomy tube placement tomorrow morning at 11 AM Currently patient was reexamined, he still agitated about dying n.p.o., however he is off the Levophed, heart rates are doing better, A. fib, in the 90s, he is normotensive on 3 L, remains afebrile Vitals/I&O/Wt Last Vital Signs Temp 97.9 F 08/20/21 16:47 Pulse 102 H 08/20/21 16:47 Resp 18 08/20/21 16:47 BP 123/73 08/20/21 16:47 Pulse Ox 95 08/20/21 13:27 08/20/21 08/20/21 08/20/21 06:59 14:59 22:59 Intake Total 1100 / 2480 1450 / 1450 0 / 1450 Balance 1100 / 1380 1450 / 1450 0 / 1450 Weight last 48 hrs Weight 101.151 kg Weight 100.868 kg Weight 91.898 kg Physical Exam Narrative: EXAM NARRATIVE: Jaundiced appearing, has scleral icterus Const: COMMON NORMALS: no acute distress and patient oriented x3 Resp: COMMON NORMALS: normal respiratory effort, No retractions, No use of accessory muscles and clear to auscultation bilaterally AUSCULTATION: clear to auscultation bilaterally Cardio: COMMON NORMALS: regular rate, S1 normal heart sound present and S2 normal heart sound present RATE: regular rate RHYTHM: abnormal rhythm irregularly irregular HEART SOUNDS: S1 normal heart sound present and S2 normal heart sound present GI: COMMON NORMALS: Soft to palpation and non-tender INSPECTION: Yes normal to inspection AUSCULTATION: Yes normoactive bowel sounds PALPATION: Yes Soft to palpation, Yes Tenderness to palpation present (GI) Details: RUQ, No Guarding due to palpation present (GI) and No Rigid due to palpation Extremity: COMMON NORMALS: no pedal edema Neuro: COMMON NORMALS: patient oriented x3 Psych: COMMON NORMALS: mental status grossly normal Data : 08/20/21 03:19 08/20/21 14:25 Micro: Microbiology 08/20/21 07:20 Blood Culture - Preliminary Blood SPECIMEN COLLECTED 08/20/21 07:25 Blood Culture - Preliminary Blood SPECIMEN COLLECTED A&P Assessment and plan (1) RUQ pain: -CT scan of the abdomen pelvis showed gallbladder wall is thickened. There is pericholecystic fluid. High density sludge present in the neck of the gallbladder. 7 mm calcification is present in the region of the common duct. This is concerning for common bile duct stone -Gallbladder ultrasound shows Sludge and cholelithiasis. Gallbladder calculus in the neck of the gallbladder. Thickened gallbladder wall measuring 8.0 mm with pericholecystic fluid. Findings suspicious for cholecystitis. Some of this may be related to hepatic disease. -GGT 116 -T bili 4.7 -AST 130, ALT 49, alk phos 194 -Lipase 61 -Procalcitonin 2.46, CRP 162 -Right upper quadrant pain today minimal, T-max 1.5, alert oriented x3 -above evidence of choledocholithiasis with acute cholecystitis -With evidence of sepsis, and exacerbation of A. fib -Patient has a high risk of acute ascending cholangitis Plan: -Currently managed in ICU -Currently off Levophed, normotensive on midodrine -On broad-spectrum antibiotic therapy vancomycin, Zosyn -Monitor for fevers, monitor right upper quadrant pain, monitor mentation -Plan on cholecystostomy tube tomorrow morning at 11, will receive 1 unit FFP, monitor INR, Dr. Erwin would like it to be less than 2 -Full code -SCDs for DVT prophylaxis, XARELTO on hold since 08/18, anticoagulation on hold for plans on cholecystostomy tube placement tomorrow -Patient requires urgent ERCP -I have called [facility] -[facility] -[facility] in [place] -[facility] in [place] -[facility] [place] [facility] in [place] -[facility] in [facility] [place] -[facility] in [place] and [facility] in [place] -[address] [place] [address] in [place] -[facility] in [facility] -[facility] in [place] -All hospitals are full, ICU are full, many are on ICU divert -I advised patient to me that I am doing my best to see if I can transfer him for ERCP evaluation, however given the load of COVID-19 on the healthcare system, this will be quite difficult, but will try on a daily basis, but there is a possibility that we would have to try to medically manage him here, discussed the morbidity and mortality associated with acute ascending cholangitis, however if he does clinically improve there is possibility of arranging an outpatient ERCP -Currently prognosis is guarded, status is stable Status: Acute (2) CHF (congestive heart failure): Currently resolved Decompensated heart failure with reduced ejection fraction. 2D echo: 07/2020: Normal LV size with reduced ejection fraction EF around 40%, diffuse hypokinesia of left ventricle, mildly dilated RV [id number] tricuspid valve regurgitation.Mild mitral and trace of aortic regurgitation. Moderate pulmonic regurgitation with a dilated pulmonary artery Moderate pulmonary hypertension with estimated pulmonary artery peak systolic pressure of 50 mmHg. Repeat 2D echo: 08/23: Normal LV size with diminished LVEF ( 40% ) , Diffuse hypokinesia of the left ventricle,Mildly dilated right ventricle with a slightly diminished ejection fraction. Mild to moderate TR, mild MR, trace AR, BNP over -4 L, mild pitting edema, looks euvolemic Hold Lasix Stop metolazone Continue midodrine Continue albumin Replace magnesium Intake output charting Daily weight K>4, MG>2 Cardiac diet Telemetry Status: Acute Qualifiers: Heart failure chronicity: acute on chronic Heart failure type: combined systolic and diastolic Qualified Code(s): I50.43 - Acute on chronic combined systolic (congestive) and diastolic (congestive) heart failure (3) Atrial fibrillation: Atrial fibrillation with RVR yesterday afternoon with hypotension, likely acutely exacerbated given sepsis associated with acute cholecystitis with choledocholithiasis as above, since being on antibiotics, heart rates are better controlled, normotensive He has been on full anticoagulation. Amnio drip stopped Amidarone 200 mg po BID Metoprolol 12.5 mg 3 times daily on digoxin 250mcqd, digoxin levels elevated 1.7 Metoprolol T 5 MG I.V Q4H PRN Status: Acute Qualifiers: Atrial fibrillation type: persistent (not longstanding) Qualified Code(s): I48.19 - Other persistent atrial fibrillation (4) Hyponatremia: resolved Monitor BMP Plan as above Status: Acute (5) CKD (chronic kidney disease) stage 3, GFR 30-59 ml/min: DESTINY ON CKD Stage 3 2/2 CRS Baseline SCR : 1.3-1.4 Current serum creatinine is 1.5 Monitor BMP Status: Acute (6) Hypertension: Currently Hypotensive Status: Acute Qualifiers: Hypertension type: essential hypertension Qualified Code(s): I10 - Essential (primary) hypertension (7) COPD (chronic obstructive pulmonary disease): Currently not in exacerbation Status: Acute Qualifiers: COPD type: unspecified COPD Qualified Code(s): J44.9 - Chronic obstructive pulmonary disease, unspecified (8) WENDI (obstructive sleep apnea): Uses CPAP at home. 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 [employer] Diagnoses RUQ pain R10.11 CHF (congestive heart failure) I50.43 Heart failure chronicity: acute on chronic Heart failure type: combined systolic and diastolic Atrial fibrillation I48.19 Atrial fibrillation type: persistent (not longstanding) Hyponatremia E87.1 CKD (chronic kidney disease) stage 3, GFR 30-59 ml/min N18.30 Hypertension I10 Hypertension type: essential hypertension COPD (chronic obstructive pulmonary disease) J44.9 COPD type: unspecified COPD WENDI (obstructive sleep apnea) G47.33 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
[2021-08-20 20:44] LABS: INR 2.96 (0.8-1.2)
--- NOTE | 2021-08-20 21:36 | PM.PN ---
Subjective Subjective: Interval history: Due to hypotension patient was moved to ICU last night started on Levophed diuretics were discontinued he was given IV fluid. He was also noted to be cholecystitis have gallbladder infection for which she was started placed on antibiotics and called cystostomy tube was placed. Blood pressure has improved. For now we will discontinue transesophageal echocardiogram and cardioversion which was planned before Medications: Reviewed: Yes Medication Review Details: Current Medications Acetaminophen (Acetaminophen 325 Mg Tablet) 650 mg PO Q6H PRN PRN Reason: Mild/Mod Pain Or Temp >/= 101 Amiodarone HCl (Amiodarone 200 Mg Tablet) 200 mg PO 0900,2100 [facility] Atorvastatin Calcium (Atorvastatin 40 Mg Tablet) 20 mg PO DAILY [facility] Last Admin: 08/15/21 10:05 Dose: 20 mg Documented by: Bisacodyl (Bisacodyl 5 Mg Tablet) 10 mg PO DAILY PRN; Protocol PRN Reason: Constipation (see protocol) Furosemide (Furosemide 10 Mg/Ml Sdv 10ml) 80 mg IVP DAILY [facility] Last Admin: 08/15/21 10:06 Dose: 80 mg Documented by: Furosemide (Furosemide 10 Mg/Ml Sdv 4ml) 40 mg IVP Q24H [facility] Last Admin: 08/14/21 18:23 Dose: 40 mg Documented by: Amiodarone HCl 900 mg/Dextrose/ IV Miscellaneous Supplies 518 mls @ 0 mls/hr IV .Q0M [facility]; Protocol Last Titration: 08/15/21 13:02 Dose: Infused Documented by: Albumin Human (Albumin) 25 gm in 100 mls @ 60 mls/hr IV Q8H [facility] Last Titration: 08/15/21 12:05 Dose: Infused Documented by: Metoprolol Tartrate (Metoprolol Tartrate 25 Mg Tablet) 25 mg PO TID [facility] Montelukast Sodium (Montelukast Sodium 10 Mg Tablet) 10 mg PO DAILY [facility] Last Admin: 08/15/21 10:05 Dose: 10 mg Documented by: Naloxone HCl (Naloxone 0.4 Mg/Ml Sdv) 0.1 mg IVP Q2M PRN PRN Reason: OPIATERV Non-Formulary Medication (Tiotropium-Olodaterol [Stiolto Respimat]) 2 puff INHALATION DAILY [facility] Last Admin: 08/14/21 11:00 Dose: 2 puff Documented by: Ondansetron HCl (Ondansetron 2 Mg/Ml Sdv 2 Ml) 4 mg IVP Q8H PRN PRN Reason: vomiting, or N/V if npo Oxycodone/Acetaminophen (Oxycodone-Apap 10-325 Mg Tablet) 1 tab PO Q4H PRN PRN Reason: MODERATE PAIN Last Admin: 08/15/21 13:25 Dose: 1 tab Documented by: Pantoprazole Sodium (Pantoprazole Dr 40 Mg Tablet) 40 mg PO DAILY [facility] Last Admin: 08/15/21 10:06 Dose: 40 mg Documented by: Rivaroxaban (Rivaroxaban 10 Mg Tablet) 20 mg PO DAILY [facility] Last Admin: 08/15/21 10:06 Dose: 20 mg Documented by: Vitals/I&O/Wt Last Vital Signs Temp 97.9 F 08/20/21 16:47 Pulse 96 08/20/21 17:00 Resp 18 08/20/21 18:18 BP 122/79 08/20/21 18:18 Pulse Ox 94 08/20/21 17:00 08/20/21 08/20/21 08/20/21 06:59 14:59 22:59 Intake Total 1100 / 2480 1450 / 1450 895 / 2345 Balance 1100 / 1380 1450 / 1450 895 / 2345 Weight last 48 hrs Weight 223 lb Weight 222 lb 6 oz Weight 202 lb 9.6 oz Physical Exam Narrative: EXAM NARRATIVE: GENERAL: Patient is awake denies any complaint this moment he is actually better communicating today NECK: No jugular vein distension. HEENT: No cyanosis. No icterus. No pallor. HEART: Irregularly S1 and S2. No murmur, rub or gallop. LUNGS: Reduced intake entry no crepitus bilaterally. ABDOMEN: Patient was draped therefore I have not examined at CENTRAL NERVOUS SYSTEM: Grossly nonfocal. EXTREMITIES: Lower extremities without edema bilaterally. Data : 08/20/21 03:19 08/20/21 14:25 Micro: Microbiology 08/20/21 07:20 Blood Culture - Preliminary Blood SPECIMEN COLLECTED 08/20/21 07:25 Blood Culture - Preliminary Blood SPECIMEN COLLECTED A&P Assessment and plan (1) CHF (congestive heart failure): Appear to be dry continue gentle IV fluid at 75 mL/h for 1 more liter. Status: Acute Qualifiers: Heart failure chronicity: acute on chronic Heart failure type: combined systolic and diastolic Qualified Code(s): I50.43 - Acute on chronic combined systolic (congestive) and diastolic (congestive) heart failure (2) Atrial fibrillation: Continue IV amiodarone. Discontinue digoxin Status: Acute Qualifiers: Atrial fibrillation type: persistent (not longstanding) Qualified Code(s): I48.19 - Other persistent atrial fibrillation (3) Hyperlipidemia: Continue statin Status: Acute Qualifiers: Hyperlipidemia type: mixed hyperlipidemia Qualified Code(s): E78.2 - Mixed hyperlipidemia (4) Hypertension: Blood pressure is on the lower side I will hold Lasix and give him back some fluid. Status: Acute Qualifiers: Hypertension type: essential hypertension Qualified Code(s): I10 - Essential (primary) hypertension (5) WENDI (obstructive sleep apnea): Noncompliant to CPAP. Status: Acute (6) Shock: Continue Levophed continue IV fluid most likely septic Status: Acute (7) Choledocholithiasis with acute cholecystitis: As per medicine and surgery Status: Acute (8) Acute renal failure (ARF): Most likely sepsis/shock with possible ATN, continue IV fluid Status: Acute Additional A&P Information Moderate pulmonary hypertension Mild to moderate tricuspid valve regurgitation COPD History of thoracoabdominal aneurysm repair. DESTINY on Chronic kidney disease stage 3: Baseline creatinine 1.4; Creatinine down to 1.2 with diuresis. Hyponatremia Thank you for allowing me to participate in patient's care. Please feel free to call with questions or concerns. Attestations Medical Necessity Statement*: Patient require continuation hospitalization for above defined care. Data. Coding Level of Care Code Established Pt Acute Pin Chaser for Krysten Gaffney Patient Type Established History Comprehensive Exam Comprehensive Medical Decision Making Moderate Complexity Diagnoses CHF (congestive heart failure) I50.43 Heart failure chronicity: acute on chronic Heart failure type: combined systolic and diastolic Atrial fibrillation I48.19 Atrial fibrillation type: persistent (not longstanding) Hyperlipidemia E78.2 Hyperlipidemia type: mixed hyperlipidemia Hypertension I10 Hypertension type: essential hypertension WENDI (obstructive sleep apnea) G47.33 Shock R57.9 Choledocholithiasis with acute cholecystitis K80.42 Acute renal failure (ARF) N17.9
[2021-08-21] VITALS (60 sets, daily range): BP systolic 59–146; BP diastolic 38–99; PULSE 75–155; RESP 13–47; TEMP 36.4–37.6; O2SAT 68–99
[2021-08-21 05:15] LABS: Lactate (Lactic Acid level) 0.8 mmol/L (0.5-2.2)
[2021-08-21] MEDS: piperacillin-tazobactam 3.375 GM in sodium chloride 0.9% (plus) 50 ML IV ×3 (05:25→20:16)
[2021-08-21] MEDS: vancomycin 1,500 MG/300 ML PIGGYBACK 200 MG IV (07:25)
--- NOTE | 2021-08-21 07:30 | PC.NURSE ---
Contacted Dr. Lam regarding the FFP order. Notes state that 1 unit to be given. This was given yesterday and the labs this am were Hydrolyzed and waiting to be redrawn. Electronic Publishing Specialist contacted Dr. Lam regarding order to verify if we need to recheck the INR/PT before administering. Waiting for him to respond.
[2021-08-21 08:18] LABS: Basophils % 0.4 %; Eosinophils % 0.1 %; Hematocrit 36.8 % (42.0-52.0); Hemoglobin 11.3 g/dL (11.7-16.6); Lymphocytes # 0.2 10^3/uL (0.8-4.8); Lymphocytes % 3.3 %; Mean Corpuscular HGB Conc 30.7 g/dL (30.0-36.0); Mean Corpuscular Hemoglobin 24.5 pg (28.0-34.0); Mean Corpuscular Volume 79.7 fl (80-94); Monocytes # 0.3 10^3/uL (0.2-0.9); Monocytes % 4.7 %; Neutrophils # 6.58 10^3/uL (1.8-7.7); Neutrophils % 91.1 %; Nucleated Red Blood Cells % 0 %; Platelet Count 103 10^3/cmm (130-400); Red Blood Count 4.62 10^6/uL (4.1-5.3); Red Cell Distribution Width 18.3 % (12.1-15.1); White Blood Count 7.2 10^3/uL (4.0-10.0)
--- NOTE | 2021-08-21 08:20 | PC.NURSE ---
Dr Lam on floor assessing pt. Trying to explain proceedure today. Pt is being very difficult and interrupting him. Stating he is about to start yelling. Insisting that he be put to sleep today. Dr. Lam explaining the risks of being put under.
[2021-08-21 08:43] LABS: INR 2.22 (0.8-1.2)
[2021-08-21 08:44] LABS: NT Pro B Type Natriuretic Pept 13947 pg/mL (0-125); Procalcitonin 1.71 ng/mL (0-0.5)
[2021-08-21 08:55] LABS: Alanine Aminotransferase 48 U/L (0-41); Albumin Level 3.1 g/dL (3.5-5.2); Alkaline Phosphatase 216 IU/L (40-130); Aspartate Amino Transferase 123 U/L (0-40); Blood Urea Nitrogen 43 mg/dL (8-23); C Reactive Protein 132.1 mg/L (0.0-4.9); Calcium 9.1 mg/dL (8.5-10.5); Carbon Dioxide 31 mmol/L (22-29); Chloride 98 mmol/L (98-107); Globulin 2.7 g/dL (1.3-4.6); Glomerular Filtration Rate 60.8 mL/min (90-130); Glucose 84 mg/dL (65-115); Magnesium 2.2 mg/dL (1.7-2.3); Osmolality Calculated 296 mOsm/kg (285-295); Phosphorus 2.6 mg/dL (2.5-4.5); Sodium 138 mmol/L (136-145); Total Bilirubin 4.1 mg/dL (0.15-1.2); Total Protein 5.8 g/dL (6.6-8.7)
[2021-08-21 09:00] LABS: Anion Gap 12.4 (5-19); Potassium 3.4 mmol/L (3.5-5.1)
[2021-08-21] MEDS: polyethylene glycol 3350 Pkt 17 gm PO (10:13)
[2021-08-21] MEDS: docusate sodium 100 mg Capsule PO ×2 (10:13→17:28)
[2021-08-21] MEDS: pantoprazole DR 40 mg Tablet PO (10:14)
[2021-08-21] MEDS: metoprolol tartrate 25 mg Tablet 12.5 MG PO ×2 (10:14→20:15)
[2021-08-21] MEDS: midodrine 5 mg TABLET 20 MG PO ×3 (10:14→20:15)
[2021-08-21] MEDS: digoxin 250 mcg Tablet PO (10:14)
--- NOTE | 2021-08-21 11:00 | US_ITS ---
WS: [id number] ULTRASOUND-GUIDED CHOLECYSTOSTOMY TUBE PLACEMENT INDICATION: Cholecystitis TECHNIQUE: The procedure, including risks benefits and complications were discussed with the patient who agreed to proceed. Using sterile technique patient was prepped and draped in usual sterile fashio n. After local sedation administered by anesthesia and 1% lidocaine, ultrasound utilized for gallblad khalida localization. Gallbladder wall was punctured with an 18-gauge coaxial needle. Rapid return of aleksandr k bile was noted. Subsequently, using Seldinger technique, a guidewire was advanced through the exist ing coaxial needle into the gallbladder and the coaxial needle was removed over the wire. Tract was d ilated and a 12 [place] pigtail catheter was advanced into the gallbladder. Pigtail catheter was capp ed with a three-way stopcock and an accordion drain was assembled to the catheter. No immediate appli cations US/US guide cholecystostomy 94136 IMPRESSION: 1. Uncomplicated cholecystostomy catheter placement. 2. Recommend catheter flushing 1-2 times a day with 8-10 cc normal saline 3. Recommend catheter remain in place 2-3 weeks until sinus tract matures or c holecystectomy performed. 4. Proximal common bile duct calculus noted on the recent CT abdomen pelvis. R ecommend follow-up with ERCP or common duct exploration if cholecystectomy is p lanned.
--- NOTE | 2021-08-21 11:20 | P.PN_ITS ---
Subjective Subjective: Interval history: Patient is in A. fib with rapid ventricle response he is status post cholecystostomy Medications: Reviewed: Yes Medication Review Details: Current Medications Acetaminophen (Acetaminophen 325 Mg Tablet) 650 mg PO Q6H PRN PRN Reason: Mild/Mod Pain Or Temp >/= 101 Amiodarone HCl (Amiodarone 200 Mg Tablet) 200 mg PO 0900,2100 [facility] Atorvastatin Calcium (Atorvastatin 40 Mg Tablet) 20 mg PO DAILY [facility] Last Admin: 08/15/21 10:05 Dose: 20 mg Documented by: Bisacodyl (Bisacodyl 5 Mg Tablet) 10 mg PO DAILY PRN; Protocol PRN Reason: Constipation (see protocol) Furosemide (Furosemide 10 Mg/Ml Sdv 10ml) 80 mg IVP DAILY [facility] [place] Last Admin: 08/15/21 10:06 Dose: 80 mg Documented by: Furosemide (Furosemide 10 Mg/Ml Sdv 4ml) 40 mg IVP Q24H [facility] [place] Last Admin: 08/14/21 18:23 Dose: 40 mg Documented by: Amiodarone HCl 900 mg/Dextrose/ IV Miscellaneous Supplies 518 mls @ 0 mls/hr IV .Q0M [facility] [place]; Protocol Last Titration: 08/15/21 13:02 Dose: Infused Documented by: Albumin Human (Albumin) 25 gm in 100 mls @ 60 mls/hr IV Q8H [facility] [place] Last Titration: 08/15/21 12:05 Dose: Infused Documented by: Metoprolol Tartrate (Metoprolol Tartrate 25 Mg Tablet) 25 mg PO TID [facility] [place] Montelukast Sodium (Montelukast Sodium 10 Mg Tablet) 10 mg PO DAILY [facility] [place] Last Admin: 08/15/21 10:05 Dose: 10 mg Documented by: Naloxone HCl (Naloxone 0.4 Mg/Ml Sdv) 0.1 mg IVP Q2M PRN PRN Reason: OPIATERV Non-Formulary Medication (Tiotropium-Olodaterol [Stiolto Respimat]) 2 puff INHALATION DAILY [facility] [place] Last Admin: 08/14/21 11:00 Dose: 2 puff Documented by: Ondansetron HCl (Ondansetron 2 Mg/Ml Sdv 2 Ml) 4 mg IVP Q8H PRN PRN Reason: vomiting, or N/V if npo Oxycodone/Acetaminophen (Oxycodone-Apap 10-325 Mg Tablet) 1 tab PO Q4H PRN PRN Reason: MODERATE PAIN Last Admin: 08/15/21 13:25 Dose: 1 tab Documented by: Pantoprazole Sodium (Pantoprazole Dr 40 Mg Tablet) 40 mg PO DAILY [facility] [place] Last Admin: 08/15/21 10:06 Dose: 40 mg Documented by: Rivaroxaban (Rivaroxaban 10 Mg Tablet) 20 mg PO DAILY [facility] [place] Last Admin: 08/15/21 10:06 Dose: 20 mg Documented by: Vitals/I&O/Wt Last Vital Signs Temp 97.8 F 08/21/21 09:13 Pulse 100 08/21/21 10:14 Resp 18 08/21/21 09:13 BP 123/65 08/21/21 09:13 Pulse Ox 95 08/21/21 09:13 08/20/21 08/21/21 08/21/21 22:59 06:59 14:59 Intake Total 995 / 2445 152 / 2597 0 / 0 Output Total 750 / 750 Balance 995 / 2445 -598 / 1847 0 / 0 Weight last 48 hrs Weight 225 lb Weight 223 lb Weight 222 lb 6 oz Physical Exam Narrative: EXAM NARRATIVE: GENERAL: Patient is awake denies any complaint this moment he is actually better communicating today NECK: No jugular vein distension. HEENT: No cyanosis. No icterus. No pallor. HEART: Irregularly S1 and S2. No murmur, rub or gallop. LUNGS: Reduced intake entry no crepitus bilaterally. ABDOMEN: Patient was draped therefore I have not examined at CENTRAL NERVOUS SYSTEM: Grossly nonfocal. EXTREMITIES: Lower extremities without edema bilaterally. Data : 08/21/21 08:08 08/21/21 19:33 Micro: Microbiology 08/20/21 07:20 Blood Culture - Preliminary Blood Gram positive cocci Gram Negative Rods 08/20/21 07:25 Blood Culture - Preliminary Blood Gram positive cocci Gram Negative Rods A&P Assessment and plan (1) CHF (congestive heart failure): Appear to be dry continue gentle IV fluid at 75 mL/h for 1 more liter. Status: Acute Qualifiers: Heart failure chronicity: acute on chronic Heart failure type: combined systolic and diastolic Qualified Code(s): I50.43 - Acute on chronic combined systolic (congestive) and diastolic (congestive) heart failure (2) Atrial fibrillation: Continue IV amiodarone. We will up titrate beta-quique Status: Acute Qualifiers: Atrial fibrillation type: persistent (not longstanding) Qualified Code(s): I48.19 - Other persistent atrial fibrillation (3) Hyperlipidemia: Continue statin Status: Acute Qualifiers: Hyperlipidemia type: mixed hyperlipidemia Qualified Code(s): E78.2 - Mixed hyperlipidemia (4) Hypertension: Blood pressure is on the lower side I will hold Lasix and give him back some fluid. Status: Acute Qualifiers: Hypertension type: essential hypertension Qualified Code(s): I10 - Essential (primary) hypertension (5) WENDI (obstructive sleep apnea): Noncompliant to CPAP. Status: Acute (6) Shock: we will continue Levophed, advise discontinuing diuretics Status: Acute (7) Choledocholithiasis with acute cholecystitis: As per medicine and surgery Status: Acute (8) Acute renal failure (ARF): Discontinue diuretics continue IV fluid 75 mL/h Status: Acute Additional A&P Information Moderate pulmonary hypertension Mild to moderate tricuspid valve regurgitation COPD History of thoracoabdominal aneurysm repair. DESTINY on Chronic kidney disease stage 3: Baseline creatinine 1.4; Creatinine down to 1.2 with diuresis. Hyponatremia Thank you for allowing me to participate in patient's care. Please feel free to call with questions or concerns. Attestations Medical Necessity Statement*: Patient require continuation hospitalization for above defined care Coding Level of Care Code Acute Set Making Machine Operator for Krysten Fwd Diagnoses CHF (congestive heart failure) I50.43 Heart failure chronicity: acute on chronic Heart failure type: combined systolic and diastolic Atrial fibrillation I48.19 Atrial fibrillation type: persistent (not longstanding) Hyperlipidemia E78.2 Hyperlipidemia type: mixed hyperlipidemia Hypertension I10 Hypertension type: essential hypertension WENDI (obstructive sleep apnea) G47.33 Shock R57.9 Choledocholithiasis with acute cholecystitis K80.42 Acute renal failure (ARF) N17.9
--- NOTE | 2021-08-21 11:20 | ANES.PREANE2 ---
Pre-Anesthetic Assessment Pre-Anesthetic Assessment: Height/Weight: Height 1.8 m Weight 102.058 kg Temp Pulse Resp BP Pulse Ox 97.8 F 100 18 123/65 95 08/21/21 09:13 08/21/21 10:14 08/21/21 09:13 08/21/21 09:13 08/21/21 09:13 Preop Diagnosis: GERD, screening Proposed Procedure: Operation Date: 08/20/21 12:00 Proposed Procedures p Ultrasound Drain Placement(Not Applicable) - Reuben Erwin MD Familial anesthetic complications: none Was Beta Abilio taken within 24 hours: Yes Was Clonidine taken within 24 hours: N/A Last intake: Intake Last Liquid Date 08/21/21 Last Liquid Time 08:00 Last Solid Date 08/19/21 Last Solid Time 08:00 Social: Social History: Alcohol Comment: occasional alcohol Exam: Pre-Anes Outpt Exam: alert and clear to auscultation bilaterally Airway: Submandibular: WNL MP: 3 Dentition: False History/ROS: No significant history except as noted Pulmonary: Pulmonary: COPD, Sleep apnea and SOB CV/HEM: CV/HEM: Afib, Arrythmia, CHF and HTN Comments: anticoagulation held, INR 2.2 platelets infusing. : : Chronic renal Insufficiency Comments: stage 3 Hepatic: Comments: elevated LFTs GI: Comments: choledocholithiasis, sepsis Metabolic: Metabolic: Hyperlipidemia Musc/skel: Musc/skel: None reported Neuropsych: Neuropsych: None reported Anesthetic Plan: ASA status: 4 Anesthesia: Anesthesia Evaluation and MAC Risk of > 500 ml blood loss (7ml/kg in children): No Meds/Allergies Current Medications: Current Medications Generic Name Dose Route Start Last Admin Trade Name Freq PRN Reason Stop Dose Admin Acetaminophen 650 mg 08/13/21 14:05 08/20/21 15:31 Acetaminophen 32 5 Mg Tablet PO 650 mg Q6H PRN Administration Mild/Mod Pain Or Temp >/= 101 Amiodarone HCl 200 mg 08/15/21 14:20 08/20/21 20:35 Amiodarone 200 M g Tablet PO 200 mg 0900,2100 HERMINIO Administration Atorvastatin Calci um 20 mg 08/14/21 09:00 08/20/21 10:22 Atorvastatin 40 Mg Tablet PO 20 mg DAILY HERMINIO Administration Digoxin 250 mcg 08/19/21 11:30 08/21/21 10:14 Digoxin 250 Mcg Tablet PO 250 mcg DAILY HERMINIO Administration Docusate Sodium 100 mg 08/18/21 09:00 08/21/21 10:13 Docusate Sodium 100 Mg Capsule PO 100 mg BID HERMINIO Administration Dopamine HCl/Dextr ose 400 mg in 250 mls @ 19.476 mls/hr 08/15/21 20:45 08/20/21 20:34 Intropin Drip IV Not Given CONT HERMINIO Protocol 5 MCG/KG/MIN Albumin Human 25 gm in 100 mls @ 60 mls/hr 08/19/21 17:00 08/21/21 10:12 Albumin IV 60 mls/hr Q8H HERMINIO Administration Sodium Chloride 1,000 mls @ 75 ml s/hr 08/19/21 18:15 08/20/21 20:33 Sodium Chloride 0.9% IV 100 mls/hr .[id number] HERMINIO Administration Piperacillin Sod/T azobactam 50 mls @ 12.5 mls /hr 08/20/21 05:00 08/21/21 05:25 Sod 3.375 gm/ So dium Chloride IV 12.5 mls/hr Q8H HERMINIO Administration Protocol Vancomycin/PEG/NAD A/Lysine/Water 1,500 mg in 300 m ls @ 200 mls/hr 08/20/21 07:30 08/21/21 07:25 Vancocin IV 200 mls/hr Q24H HERMINIO Administration Metoprolol Tartrat e 5 mg 08/15/21 22:34 08/17/21 09:55 Metoprolol Tartr ate 1 Mg/1 Ml Sdv 5 Ml IVP 5 mg Q4H PRN Administration HEART RATE-HIGH Metoprolol Tartrat e 12.5 mg 08/16/21 14:15 08/21/21 10:14 Metoprolol Tartr ate 25 Mg Tablet PO 12.5 mg TID HERMINIO Administration Midodrine 20 mg 08/19/21 16:30 08/21/21 10:14 Midodrine 5 Mg T ablet PO 20 mg TID HERMINIO Administration Montelukast Sodium 10 mg 08/14/21 09:00 08/21/21 10:15 Montelukast Sodi um 10 Mg Tablet PO Not Given DAILY HERMINIO Non-Formulary Medi cation 2 puff 08/14/21 11:30 08/20/21 11:58 Tiotropium-Oloda terol [Stiolto Res pimat] INHALATION Not Given DAILY HERMINIO Ondansetron HCl 4 mg 08/13/21 14:05 08/18/21 21:00 Ondansetron 2 Mg /Ml Sdv 2 Ml IVP 4 mg Q8H PRN Administration vomiting, or N/V if npo Pantoprazole Sodiu m 40 mg 08/14/21 09:00 08/21/21 10:[address] 40 Mg Tablet PO 40 mg DAILY HERMINIO Administration Polyethylene Glyco l 17 gm 08/18/21 09:00 08/21/21 10:13 Polyethylene Gly col 3350 Pkt 17 Gm PO 17 gm DAILY HERMINIO Administration Rivaroxaban 20 mg 08/14/21 09:00 08/19/21 09:26 Rivaroxaban 10 M g Tablet PO 20 mg DAILY HERMINIO Administration Additional Medication Information: Current Medications Acetaminophen (Acetaminophen 325 Mg Tablet) 650 mg PO Q6H PRN PRN Reason: Mild/Mod Pain Or Temp >/= 101 Amiodarone HCl (Amiodarone 200 Mg Tablet) 200 mg PO 0900,2100 [facility] Atorvastatin Calcium (Atorvastatin 40 Mg Tablet) 20 mg PO DAILY [facility] Last Admin: 08/15/21 10:05 Dose: 20 mg Documented by: Bisacodyl (Bisacodyl 5 Mg Tablet) 10 mg PO DAILY PRN; Protocol PRN Reason: Constipation (see protocol) Furosemide (Furosemide 10 Mg/Ml Sdv 10ml) 80 mg IVP DAILY [facility] Last Admin: 08/15/21 10:06 Dose: 80 mg Documented by: Furosemide (Furosemide 10 Mg/Ml Sdv 4ml) 40 mg IVP Q24H [facility] Last Admin: 08/14/21 18:23 Dose: 40 mg Documented by: Amiodarone HCl 900 mg/Dextrose/ IV Miscellaneous Supplies 518 mls @ 0 mls/hr IV .Q0M [facility]; Protocol Last Titration: 08/15/21 13:02 Dose: Infused Documented by: Albumin Human (Albumin) 25 gm in 100 mls @ 60 mls/hr IV Q8H [facility] Last Titration: 08/15/21 12:05 Dose: Infused Documented by: Metoprolol Tartrate (Metoprolol Tartrate 25 Mg Tablet) 25 mg PO TID [facility] Montelukast Sodium (Montelukast Sodium 10 Mg Tablet) 10 mg PO DAILY [facility] Last Admin: 08/15/21 10:05 Dose: 10 mg Documented by: Naloxone HCl (Naloxone 0.4 Mg/Ml Sdv) 0.1 mg IVP Q2M PRN PRN Reason: OPIATERV Non-Formulary Medication (Tiotropium-Olodaterol [Stiolto Respimat]) 2 puff INHALATION DAILY [facility] Last Admin: 08/14/21 11:00 Dose: 2 puff Documented by: Ondansetron HCl (Ondansetron 2 Mg/Ml Sdv 2 Ml) 4 mg IVP Q8H PRN PRN Reason: vomiting, or N/V if npo Oxycodone/Acetaminophen (Oxycodone-Apap 10-325 Mg Tablet) 1 tab PO Q4H PRN PRN Reason: MODERATE PAIN Last Admin: 08/15/21 13:25 Dose: 1 tab Documented by: Pantoprazole Sodium (Pantoprazole Dr 40 Mg Tablet) 40 mg PO DAILY [facility] Last Admin: 08/15/21 10:06 Dose: 40 mg Documented by: Rivaroxaban (Rivaroxaban 10 Mg Tablet) 20 mg PO DAILY [facility] Last Admin: 08/15/21 10:06 Dose: 20 mg Documented by: PFSH Anesthesia PFS: Medical History Anticoagulation adequate with anticoagulant therapy Xarelto Atrial fibrillation Converted to sinus rhythm after given amiodarone. Will discharge on amiodarone with follow-up to cardiology. 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 Surgical History History of hernia repair Status post thoracic aortic aneurysm repair Family History Father CAD (coronary artery disease) Myocardial infarction Other Cancer Social History Smoking and tobacco status: former smoker Quit status (tobacco): has quit using tobacco Year quit tobacco: 1980 - 0.5 PPD x 8 Years Second hand smoke exposure: Yes Smoking risk assessment/counseling performed?: No Alcohol intake: current Alcohol intake frequency: holidays/special occasions only Desire information about alcohol rehabilitation?: No Counseling given: No Lives independently: Yes Household members: none Marital status: service: No Current occupational status: disabled Pets and animals: Yes History of recent travel: No Current gender identity: Male Data Anesthesia CBC & Chem 7: 08/21/21 08:08 08/21/21 08:08 Other Labs: Laboratory Results - last 48 hr 08/19/21 08/19/21 08/19/21 10:49 18:15 18:15 WBC 6.1 Corrected WBC RBC 4.43 Hgb 10.8 L Hct 34.1 L MCV 77.0 L MCH 24.4 L MCHC 31.7 RDW 18.0 H Plt Count 120 L MPV 10.2 Gran % Neut % (Auto) 89.9 Lymph % (Auto) 3.0 Cass % (Auto) 5.6 Eos % (Auto) 0.0 Baso % (Auto) 0.5 Neut # (Auto) 5.47 Lymph # (Auto) 0.2 L Cass # (Auto) 0.3 Eos # (Auto) 0.0 Baso # (Auto) 0.0 Absolute Gran (auto) Nucleated RBC % (auto) 0 Total Counted Atypical Lymphs % Absolute Neutrophils Segmented Neutrophils Abs Segm Neuts (Man) Band Neutrophils Abs Band Neuts (Man) Absolute Lymphocytes Lymphocytes (Manual) Monocytes (Manual) Absolute Monocytes Eosinophils (Manual) Absolute Eosinophils Basophils (Manual) Absolute Basophils Metamyelocytes Nucleated RBCs # 0.0 Toxic Vacuolation Platelet Estimate PT INR Sodium 136 139 Potassium 3.1 L 3.2 L Chloride 94 L 97 L Carbon Dioxide 33 H 29 Anion Gap 12.1 16.2 BUN 28 H 36 H Creatinine 1.2 1.6 H GFR Calculation 60.8 L 43.6 L Glucose 90 77 Calculated Osmolality 287 295 Lactate Calcium 9.8 9.5 Phosphorus Magnesium Total Bilirubin 4.4 H GGT AST 183 H ALT 54 H Alkaline Phosphatase 262 H C-Reactive Protein 162.2 H NT-Pro-B Natriuret Pep Total Protein 5.6 L Albumin 3.4 L Globulin 2.2 Lipase Procalcitonin 1.78 H Digoxin SARS-CoV-2 Ag (Rapid) Blood Type Rho(D) Type 08/20/21 08/20/21 08/20/21 03:19 03:19 03:19 WBC 13.5 H Corrected WBC RBC 4.45 Hgb 11.0 L Hct 35.5 L MCV 79.8 L MCH 24.7 L MCHC 31.0 RDW 18.1 H Plt Count 140 MPV 10.9 H Gran % Neut % (Auto) Lymph % (Auto) Not Reportable Cass % (Auto) Not Reportable Eos % (Auto) Baso % (Auto) Neut # (Auto) Lymph # (Auto) Not Reportable Cass # (Auto) Not Reportable Eos # (Auto) Baso # (Auto) Absolute Gran (auto) Nucleated RBC % (auto) Total Counted 100 Atypical Lymphs % 0.0 Absolute Neutrophils 11.9 H Segmented Neutrophils 69 Abs Segm Neuts (Man) 9.3 H Band Neutrophils 19.0 Abs Band Neuts (Man) 2.6 H Absolute Lymphocytes 0.7 L Lymphocytes (Manual) 5 Monocytes (Manual) 6.0 Absolute Monocytes 0.8 H Eosinophils (Manual) 0 Absolute Eosinophils 0.0 Basophils (Manual) 0.0 Absolute Basophils 0.0 Metamyelocytes 1.0 Nucleated RBCs # Toxic Vacuolation 1+ H Platelet Estimate Normal PT INR Sodium 138 Potassium 3.6 Chloride 96 L Carbon Dioxide 33 H Anion Gap 12.6 BUN 38 H Creatinine 2.0 H GFR Calculation 33.7 L Glucose 89 Calculated Osmolality 295 Lactate Calcium 9.5 Phosphorus 4.1 Magnesium 2.0 Total Bilirubin 5.8 H GGT AST 224 H ALT 65 H Alkaline Phosphatase 267 H C-Reactive Protein NT-Pro-B Natriuret Pep 88672 H Total Protein 6.0 L Albumin 3.5 Globulin 2.5 Lipase Procalcitonin Digoxin 1.7 H SARS-CoV-2 Ag (Rapid) Blood Type Rho(D) Type 08/20/21 08/20/21 08/20/21 03:19 07:25 11:38 WBC Corrected WBC RBC Hgb Hct MCV MCH MCHC RDW Plt Count MPV Gran % Neut % (Auto) Lymph % (Auto) Cass % (Auto) Eos % (Auto) Baso % (Auto) Neut # (Auto) Lymph # (Auto) Cass # (Auto) Eos # (Auto) Baso # (Auto) Absolute Gran (auto) Nucleated RBC % (auto) Total Counted Atypical Lymphs % Absolute Neutrophils Segmented Neutrophils Abs Segm Neuts (Man) Band Neutrophils Abs Band Neuts (Man) Absolute Lymphocytes Lymphocytes (Manual) Monocytes (Manual) Absolute Monocytes Eosinophils (Manual) Absolute Eosinophils Basophils (Manual) Absolute Basophils Metamyelocytes Nucleated RBCs # Toxic Vacuolation Platelet Estimate PT 40.50 H INR 4.13 H Sodium Potassium Chloride Carbon Dioxide Anion Gap BUN Creatinine GFR Calculation Glucose Calculated Osmolality Lactate 1.4 Calcium Phosphorus Magnesium Total Bilirubin GGT 116 H AST ALT Alkaline Phosphatase C-Reactive Protein 182.1 H NT-Pro-B Natriuret Pep Total Protein Albumin Globulin Lipase 61 H Procalcitonin 3.56 H Digoxin SARS-CoV-2 Ag (Rapid) Blood Type Rho(D) Type 08/20/21 08/20/21 08/20/21 12:50 14:25 14:25 WBC Corrected WBC RBC Hgb Hct MCV MCH MCHC RDW Plt Count MPV Gran % Neut % (Auto) Lymph % (Auto) Cass % (Auto) Eos % (Auto) Baso % (Auto) Neut # (Auto) Lymph # (Auto) Cass # (Auto) Eos # (Auto) Baso # (Auto) Absolute Gran (auto) Nucleated RBC % (auto) Total Counted Atypical Lymphs % Absolute Neutrophils Segmented Neutrophils Abs Segm Neuts (Man) Band Neutrophils Abs Band Neuts (Man) Absolute Lymphocytes Lymphocytes (Manual) Monocytes (Manual) Absolute Monocytes Eosinophils (Manual) Absolute Eosinophils Basophils (Manual) Absolute Basophils Metamyelocytes Nucleated RBCs # Toxic Vacuolation Platelet Estimate PT INR Sodium 137 Potassium 4.3 Chloride 96 L Carbon Dioxide 30 H Anion Gap 15.3 BUN 39 H Creatinine 1.5 H GFR Calculation 47.0 L Glucose 85 Calculated Osmolality 293 Lactate Calcium 9.0 Phosphorus Magnesium Total Bilirubin 4.7 H GGT AST 130 H ALT 49 H Alkaline Phosphatase 194 H C-Reactive Protein 168.2 H NT-Pro-B Natriuret Pep Total Protein 5.7 L Albumin 3.3 L Globulin 2.4 Lipase Procalcitonin 2.46 H Digoxin SARS-CoV-2 Ag (Rapid) Negative Blood Type O Positive Rho(D) Type Positive 08/20/21 08/20/21 08/21/21 14:25 20:00 04:18 WBC Cancelled Corrected WBC Cancelled RBC Cancelled Hgb Cancelled Hct Cancelled MCV Cancelled MCH Cancelled MCHC Cancelled RDW Cancelled Plt Count Cancelled MPV Cancelled Gran % Cancelled Neut % (Auto) Cancelled Lymph % (Auto) Cancelled Cass % (Auto) Cancelled Eos % (Auto) Cancelled Baso % (Auto) Cancelled Neut # (Auto) Cancelled Lymph # (Auto) Cancelled Cass # (Auto) Cancelled Eos # (Auto) Cancelled Baso # (Auto) Cancelled Absolute Gran (auto) Cancelled Nucleated RBC % (auto) Cancelled Total Counted Atypical Lymphs % Absolute Neutrophils Segmented Neutrophils Abs Segm Neuts (Man) Band Neutrophils Abs Band Neuts (Man) Absolute Lymphocytes Lymphocytes (Manual) Monocytes (Manual) Absolute Monocytes Eosinophils (Manual) Absolute Eosinophils Basophils (Manual) Absolute Basophils Metamyelocytes Nucleated RBCs # Cancelled Toxic Vacuolation Platelet Estimate PT 31.30 H INR 2.96 H Sodium Potassium Chloride Carbon Dioxide Anion Gap BUN Creatinine GFR Calculation Glucose Calculated Osmolality Lactate 1.0 Calcium Phosphorus Magnesium Total Bilirubin GGT AST ALT Alkaline Phosphatase C-Reactive Protein NT-Pro-B Natriuret Pep Total Protein Albumin Globulin Lipase Procalcitonin Digoxin SARS-CoV-2 Ag (Rapid) Blood Type Rho(D) Type 08/21/21 08/21/21 08/21/21 04:18 04:18 04:18 WBC Corrected WBC RBC Hgb Hct MCV MCH MCHC RDW Plt Count MPV Gran % Neut % (Auto) Lymph % (Auto) Cass % (Auto) Eos % (Auto) Baso % (Auto) Neut # (Auto) Lymph # (Auto) Cass # (Auto) Eos # (Auto) Baso # (Auto) Absolute Gran (auto) Nucleated RBC % (auto) Total Counted Atypical Lymphs % Absolute Neutrophils Segmented Neutrophils Abs Segm Neuts (Man) Band Neutrophils Abs Band Neuts (Man) Absolute Lymphocytes Lymphocytes (Manual) Monocytes (Manual) Absolute Monocytes Eosinophils (Manual) Absolute Eosinophils Basophils (Manual) Absolute Basophils Metamyelocytes Nucleated RBCs # Toxic Vacuolation Platelet Estimate PT Cancelled INR Cancelled Sodium Cancelled Potassium Cancelled Chloride Cancelled Carbon Dioxide Cancelled Anion Gap Cancelled BUN Cancelled Creatinine Cancelled GFR Calculation Cancelled Glucose Cancelled Calculated Osmolality Cancelled Lactate 0.8 Calcium Cancelled Phosphorus Cancelled Magnesium Cancelled Total Bilirubin Cancelled GGT AST Cancelled ALT Cancelled Alkaline Phosphatase Cancelled C-Reactive Protein Cancelled NT-Pro-B Natriuret Pep Cancelled Total Protein Cancelled Albumin Cancelled Globulin Cancelled Lipase Procalcitonin Cancelled Digoxin SARS-CoV-2 Ag (Rapid) Blood Type Rho(D) Type 08/21/21 08/21/21 08/21/21 08:08 08:08 08:08 WBC 7.2 Corrected WBC RBC 4.62 Hgb 11.3 L Hct 36.8 L MCV 79.7 L MCH 24.5 L MCHC 30.7 RDW 18.3 H Plt Count 103 L MPV 10.0 Gran % Neut % (Auto) 91.1 Lymph % (Auto) 3.3 Cass % (Auto) 4.7 Eos % (Auto) 0.1 Baso % (Auto) 0.4 Neut # (Auto) 6.58 Lymph # (Auto) 0.2 L Cass # (Auto) 0.3 Eos # (Auto) 0.0 Baso # (Auto) 0.0 Absolute Gran (auto) Nucleated RBC % (auto) 0 Total Counted Atypical Lymphs % Absolute Neutrophils Segmented Neutrophils Abs Segm Neuts (Man) Band Neutrophils Abs Band Neuts (Man) Absolute Lymphocytes Lymphocytes (Manual) Monocytes (Manual) Absolute Monocytes Eosinophils (Manual) Absolute Eosinophils Basophils (Manual) Absolute Basophils Metamyelocytes Nucleated RBCs # 0.0 Toxic Vacuolation Platelet Estimate PT 25.10 H INR 2.22 H Sodium 138 Potassium 3.4 L Chloride 98 Carbon Dioxide 31 H Anion Gap 12.4 BUN 43 H Creatinine 1.2 GFR Calculation 60.8 L Glucose 84 Calculated Osmolality 296 H Lactate Calcium 9.1 Phosphorus 2.6 Magnesium 2.2 Total Bilirubin 4.1 H GGT AST 123 H ALT 48 H Alkaline Phosphatase 216 H C-Reactive Protein 132.1 H NT-Pro-B Natriuret Pep 82163 H Total Protein 5.8 L Albumin 3.1 L Globulin 2.7 Lipase Procalcitonin 1.71 H Digoxin SARS-CoV-2 Ag (Rapid) Blood Type Rho(D) Type Micro: Microbiology 08/20/21 07:20 Blood Culture - Preliminary Blood Gram positive cocci Gram Negative Rods 08/20/21 07:25 Blood Culture - Preliminary Blood Gram positive cocci Gram Negative Rods Cardiac Studies: Echocardiogram 08/15/21
[2021-08-21] MEDS: atorvastatin 40 mg Tablet 20 MG PO (11:29)
[2021-08-21] MEDS: amiodarone 200 mg Tablet PO ×2 (11:30→20:17)
--- NOTE | 2021-08-21 12:00 | PC.NURSE ---
procedure started. Diprovan 40mg given to start. area prepped and shaved
--- NOTE | 2021-08-21 12:23 | PC.NURSE ---
Propofol and ruben being maintained by SREEDHAR Joseph
--- NOTE | 2021-08-21 12:59 | XR_ITS ---
WS: [id number] Portable AP upright chest, 08/21/2021 Clinical Data: decreased sats Comparison: Portable chest, 08/20/2021 Findings: The bilateral pulmonary opacities remain the same. The right pleural effusion is increasing . The heart remains enlarged. The left PICC line is in good position. XR/XR chest 1V portable [id number] Impression: 1. No change in bilateral pulmonary opacities and cardiomegaly. 2. Moderate increase in right pleural effusion.
--- NOTE | 2021-08-21 13:57 | PC.NURSE ---
Attempted call to pt sister, no answer, left message to call back.
[2021-08-21] MEDS: FUROsemide 10 mg/mL SDV 4mL 40 MG IVP ×2 (14:30→18:06)
[2021-08-21] MEDS: metOLazone 5 MG Tablet 10 MG PO (14:58)
[2021-08-21] MEDS: NON-FORMULARY MEDICATION (Tiotropium-Olodaterol [Stiolto Respimat] 2.5-2.5 mcg/actuation m 2 EACH INHALATION (17:04)
[2021-08-21] MEDS: amiodarone 50 mg/mL SDV 3 mL 150 MG IVP (17:05)
--- NOTE | 2021-08-21 17:25 | PC.NURSE ---
BP decreasing, starting back on Levophed. Amiodorone 150mg IV push given. Let Dr. Lam know that pt has wheezes in lungs and constantly coughing and clearing his throat. Pt does not follow instructions well to cough and clear lungs.
--- NOTE | 2021-08-21 17:42 | PC.NURSE ---
Spoke with Dr. Lam regarding pt condition. New orders for Amiodorone drip put in and additional lab work. New orders for additional lasix.
[2021-08-21] MEDS: potassium chloride ER 20 mEq Tablet 40 MEQ PO (18:06)
--- NOTE | 2021-08-21 18:07 | P.PN_ITS ---
Subjective Subjective: Interval history: This morning patient was examined, he is on 3 L, A. fib, heart rates well controlled, normotensive, off pressors, he tells me that he is quite anxious about having cholecystostomy tube, he wants to be knocked out, he is very frustrated with me that were not going to put him under general anesthesia, he tells me he does not feel any pain, he also is quite frustrated about not being able to eat anything, he is still having some right upper quadrant pain, no fevers overnight, no nausea, no vomiting Patient was reexamined multiple times throughout the day, in the afternoon he appeared fluid overloaded after his cholecystostomy tube, was given 40 of Lasix and metolazone, currently on nonrebreather, alert oriented x3, has had 1900 urine output, heart rates in the 140s to 150s, A. fib, was given amiodarone bolus, blood cultures positive for for gram-positive gram-negative's, patient was becoming hypotensive, was placed back on Levophed Vitals/I&O/Wt Last Vital Signs Temp 99.7 F H 08/21/21 17:30 Pulse 125 H 08/21/21 17:30 Resp 25 H 08/21/21 17:30 BP 71/52 08/21/21 17:30 Pulse Ox 90 08/21/21 17:30 08/21/21 08/21/21 08/21/21 06:59 14:59 22:59 Intake Total 152 / 2597 50 / 50 Output Total 750 / 750 750 / 750 400 / 1150 Balance -598 / 1847 -700 / -700 -400 / -1100 Weight last 48 hrs Weight 102.058 kg Weight 101.151 kg Physical Exam Narrative: EXAM NARRATIVE: Jaundiced appearing, has scleral icterus Const: COMMON NORMALS: no acute distress and patient oriented x3 HENMT: COMMON NORMALS: normocephalic HEAD & SCALP: normocephalic Resp: COMMON NORMALS: normal respiratory effort, No retractions and No use of accessory muscles AUSCULTATION: wheezes Cardio: COMMON NORMALS: regular rate, S1 normal heart sound present and S2 normal heart sound present RATE: regular rate RHYTHM: abnormal rhythm HEART SOUNDS: S1 normal heart sound present and S2 normal heart sound present GI: COMMON NORMALS: Normal to inspection, nondistended, normoactive bowel sounds present, Soft to palpation, non-tender and no bruits PALPATION: Yes Soft to palpation and Yes Tenderness to palpation present (GI) Details: RUQ OTHER: Right upper quadrant tenderness, to palpation, Extremity: COMMON NORMALS: no calf tenderness and no pedal edema Neuro: COMMON NORMALS: patient oriented x3 Psych: COMMON NORMALS: mental status grossly normal Data : 08/21/21 08:08 08/21/21 08:08 Micro: Microbiology 08/20/21 07:20 Blood Culture - Preliminary Blood Gram positive cocci Gram Negative Rods 08/20/21 07:25 Blood Culture - Preliminary Blood Gram positive cocci Gram Negative Rods A&P Assessment and plan (1) RUQ pain: -CT scan of the abdomen pelvis showed gallbladder wall is thickened. There is pericholecystic fluid. High density sludge present in the neck of the gallbladder. 7 mm calcification is present in the region of the common duct. This is concerning for common bile duct stone -Gallbladder ultrasound shows Sludge and cholelithiasis. Gallbladder calculus in the neck of the gallbladder. Thickened gallbladder wall measuring 8.0 mm with pericholecystic fluid. Findings suspicious for cholecystitis. Some of this may be related to hepatic disease -T bili 4.1 -Transaminitis -Lipase 61 -Pro-Anthony 1.71, CRP 132 -Right upper quadrant pain today minimal, T-max 99.7, alert oriented x3 -Status post cholecystostomy tube -Blood cultures positive for gram-negative and gram-positive -above evidence of choledocholithiasis with acute cholecystitis -With evidence of sepsis, and exacerbation of A. fib -Patient has a high risk of acute ascending cholangitis Plan: -Currently managed in ICU -Currently on Levophed, midodrine -On broad-spectrum antibiotic therapy vancomycin, Zosyn -Monitor for fevers, monitor right upper quadrant pain, monitor mentation -Full code -SCDs for DVT prophylaxis, XARELTO on hold since 08/18, anticoagulation on hold for plans on cholecystostomy tube placement, resume tomorrow morning -Patient requires urgent ERCP -I have called [facility] -[facility] in [place] -[facility] in [facility] -[facility] -[facility] in [place] -[facility] in [facility] -[facility] in [place] -[facility] in [place] and Adonis Lobo in [place] -[address] [place] [address] in [place] -2 [facility] in [facility] -[facility] in [place] -All hospitals are full, ICU are full, many are on ICU divert -I advised patient to me that I am doing my best to see if I can transfer him for ERCP evaluation, however given the load of COVID-19 on the healthcare system, this will be quite difficult, but will try on a daily basis, but there is a possibility that we would have to try to medically manage him here, discussed the morbidity and mortality associated with acute ascending cholangitis, however if he does clinically improve there is possibility of arranging an outpatient ERCP -Currently prognosis is guarded, status is stable Status: Acute (2) CHF (congestive heart failure): Currently in exacerbation, will give 2 doses of Lasix and metolazone Decompensated heart failure with reduced ejection fraction. 2D echo: 07/2020: Normal LV size with reduced ejection fraction EF around 40%, diffuse hypokinesia of left ventricle, mildly dilated RV [id number] tricuspid valve regurgitation.Mild mitral and trace of aortic regurgitation. Moderate pulmonic regurgitation with a dilated pulmonary artery Moderate pulmonary hypertension with estimated pulmonary artery peak systolic pressure of 50 mmHg. Repeat 2D echo: 08/23: Normal LV size with diminished LVEF ( 40% ) , Diffuse hypokinesia of the left ventricle,Mildly dilated right ventricle with a slightly diminished ejection fraction. Mild to moderate TR, mild MR, trace AR, BNP over -4 L, does have shortness of breath, crackles on exam this afternoon, Resume Lasix 40 twice daily, metolazone Continue midodrine Continue albumin Replace magnesium Intake output charting Daily weight K>4, MG>2 Cardiac diet Telemetry Status: Acute Qualifiers: Heart failure chronicity: acute on chronic Heart failure type: combined systolic and diastolic Qualified Code(s): I50.43 - Acute on chronic combined systolic (congestive) and diastolic (congestive) heart failure (3) Atrial fibrillation: Had A. fib with RVR this afternoon, status post amiodarone bolus, currently on amiodarone drip Anticoagulation on hold Amnio drip stopped Amidarone 200 mg po BID Metoprolol 12.5 mg 3 times daily on digoxin 250mcqd, digoxin levels elevated 1.7 Metoprolol T 5 MG I.V Q4H PRN Status: Acute Qualifiers: Atrial fibrillation type: persistent (not longstanding) Qualified Code(s): I48.19 - Other persistent atrial fibrillation (4) Hyponatremia: resolved Monitor BMP Plan as above Status: Acute (5) CKD (chronic kidney disease) stage 3, GFR 30-59 ml/min: DESTINY ON CKD Stage 3 2/2 CRS Baseline SCR : 1.3-1.4 Current serum creatinine is 1.2 Monitor BMP Status: Acute (6) Hypertension: Currently Hypotensive Status: Acute Qualifiers: Hypertension type: essential hypertension Qualified Code(s): I10 - Essential (primary) hypertension (7) COPD (chronic obstructive pulmonary disease): Currently not in exacerbation Status: Acute Qualifiers: COPD type: unspecified COPD Qualified Code(s): J44.9 - Chronic obstructive pulmonary disease, unspecified (8) WENDI (obstructive sleep apnea): Uses CPAP at home. 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 [facility] Fwd Diagnoses RUQ pain R10.11 CHF (congestive heart failure) I50.43 Heart failure chronicity: acute on chronic Heart failure type: combined systolic and diastolic Atrial fibrillation I48.19 Atrial fibrillation type: persistent (not longstanding) Hyponatremia E87.1 CKD (chronic kidney disease) stage 3, GFR 30-59 ml/min N18.30 Hypertension I10 Hypertension type: essential hypertension COPD (chronic obstructive pulmonary disease) J44.9 COPD type: unspecified COPD WENDI (obstructive sleep apnea) G47.33 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
[2021-08-21 20:11] LABS: Lactate (Lactic Acid level) 1.7 mmol/L (0.5-2.2)
[2021-08-21 20:36] LABS: Alanine Aminotransferase 45 U/L (0-41); Albumin Level 2.9 g/dL (3.5-5.2); Alkaline Phosphatase 214 IU/L (40-130); Blood Urea Nitrogen 44 mg/dL (8-23); Calcium 9.2 mg/dL (8.5-10.5); Carbon Dioxide 31 mmol/L (22-29); Chloride 99 mmol/L (98-107); Globulin 2.6 g/dL (1.3-4.6); Glomerular Filtration Rate 50.9 mL/min (90-130); Glucose 91 mg/dL (65-115); Osmolality Calculated 301 mOsm/kg (285-295); Sodium 140 mmol/L (136-145); Total Protein 5.5 g/dL (6.6-8.7)
[2021-08-21 20:38] LABS: Anion Gap 13.8 (5-19); Aspartate Amino Transferase 122 U/L (0-40); Potassium 3.8 mmol/L (3.5-5.1)
[2021-08-22] VITALS (47 sets, daily range): BP systolic 93–132; BP diastolic 52–81; PULSE 68–117; RESP 16–27; TEMP 36.2–36.9; O2SAT 86–97; BMI 31.4
[2021-08-22] MEDS: piperacillin-tazobactam 3.375 GM in sodium chloride 0.9% (plus) 50 ML IV ×3 (05:17→21:09)
[2021-08-22 07:02] LABS: Basophils % 0.6 %; Hematocrit 36.6 % (42.0-52.0); Hemoglobin 11.2 g/dL (11.7-16.6); Lymphocytes # 0.7 10^3/uL (0.8-4.8); Lymphocytes % 9.3 %; Mean Corpuscular HGB Conc 30.6 g/dL (30.0-36.0); Mean Corpuscular Hemoglobin 24.5 pg (28.0-34.0); Mean Corpuscular Volume 80.1 fl (80-94); Mean Platelet Volume 11.4 fL (7.4-10.4); Monocytes # 0.7 10^3/uL (0.2-0.9); Neutrophils # 5.76 10^3/uL (1.8-7.7); Neutrophils % 79.7 %; Nucleated Red Blood Cells % 0 %; Platelet Count 88 10^3/cmm (130-400); Red Blood Count 4.57 10^6/uL (4.1-5.3); Red Cell Distribution Width 18.4 % (12.1-15.1); White Blood Count 7.2 10^3/uL (4.0-10.0)
[2021-08-22 07:13] LABS: INR 1.41 (0.8-1.2)
[2021-08-22 07:23] LABS: Lactate (Lactic Acid level) 1.1 mmol/L (0.5-2.2)
[2021-08-22 07:26] LABS: Vancomycin Trough 11.8 ug/mL (10-15)
[2021-08-22] MEDS: enoxaparin 100 mg/mL Syringe SUBCUT ×2 (07:26→21:09)
[2021-08-22] MEDS: vancomycin 1,500 MG/300 ML PIGGYBACK 200 MG IV (07:26)
[2021-08-22 07:38] LABS: NT Pro B Type Natriuretic Pept 17027 pg/mL (0-125); Procalcitonin 3.26 ng/mL (0-0.5); Slide Review Slide Review Perform
--- NOTE | 2021-08-22 07:41 | ANE.PACU2 ---
Inpatient post-anesthesia follow up: Airway intact: Yes Vital signs: Temperature 99.7 F Pulse Rate [Monito r] 152 Pulse Rate 84 Respiratory Rate 17 Blood Pressure [Le ft Arm] 133/84 Blood Pressure 121/56 Pulse Oximetry 95 Oxygen Delivery Me thod [ Nasal Cannula Current Rate & Del festus] Oxygen Delivery Me thod Nasal Cannula Oxygen Flow Rate [ Current Rate 3 & Delivery] Oxygen Flow Rate 5 Fraction of Inspir ed Oxygen 30 Hydration adequate: Yes Nausea and vomiting: No Pain level: 2 Mental status: Baseline
[2021-08-22 07:51] LABS: Alanine Aminotransferase 37 U/L (0-41); Albumin Level 3.1 g/dL (3.5-5.2); Alkaline Phosphatase 168 IU/L (40-130); Aspartate Amino Transferase 86 U/L (0-40); Blood Urea Nitrogen 43 mg/dL (8-23); C Reactive Protein 124.9 mg/L (0.0-4.9); Carbon Dioxide 31 mmol/L (22-29); Chloride 97 mmol/L (98-107); Globulin 2.4 g/dL (1.3-4.6); Glomerular Filtration Rate 50.9 mL/min (90-130); Glucose 137 mg/dL (65-115); Osmolality Calculated 301 mOsm/kg (285-295); Phosphorus 2.3 mg/dL (2.5-4.5); Sodium 139 mmol/L (136-145); Total Bilirubin 3.2 mg/dL (0.15-1.2); Total Protein 5.5 g/dL (6.6-8.7)
[2021-08-22 07:53] LABS: Anion Gap 14.1 (5-19); Potassium 3.1 mmol/L (3.5-5.1)
--- NOTE | 2021-08-22 07:59 | PC.NURSE ---
Morning medications,head to toe assessment, pain assessment, fiberline supervisor completed. Titrated Levophed from 7.5 to 7mls/hr patient blood pressure is 118/59, currently. Titrated oxygen from 15L to 10L as Provider asked that it be titrated today. Verified diet with current order and patient is now having breakfast with 5L NC and O2 is at 91%.
[2021-08-22] MEDS: atorvastatin 40 mg Tablet 20 MG PO (08:36)
[2021-08-22] MEDS: metoprolol tartrate 25 mg Tablet 12.5 MG PO ×3 (08:36→21:09)
[2021-08-22] MEDS: digoxin 250 mcg Tablet PO (08:36)
[2021-08-22] MEDS: montelukast sodium 10 mg Tablet PO (08:36)
[2021-08-22] MEDS: docusate sodium 100 mg Capsule PO ×2 (08:37→17:04)
[2021-08-22] MEDS: pantoprazole DR 40 mg Tablet PO (08:37)
[2021-08-22] MEDS: polyethylene glycol 3350 Pkt 17 gm PO (08:37)
[2021-08-22] MEDS: amiodarone 200 mg Tablet PO (08:39)
--- NOTE | 2021-08-22 09:15 | PC.NURSE ---
Patient received approximately 25% of miralax this morning. Patient refused to drink the rest of the mixture due to not liking the taste.
[2021-08-22] MEDS: NON-FORMULARY MEDICATION (Tiotropium-Olodaterol [Stiolto Respimat] 2.5-2.5 mcg/actuation m 2 EACH INHALATION (09:32)
--- NOTE | 2021-08-22 09:50 | PC.SOCIAL ---
IMM Update Pg. 2 of IMM updated. Initialed, dated, and timed. Copy provided to patient.
[2021-08-22] MEDS: midodrine 5 mg TABLET 20 MG PO ×3 (09:54→21:09)
--- NOTE | 2021-08-22 10:10 | PM.PN ---
Subjective Subjective: Interval history: Status post cholecystostomy tube placement yesterday. The patient says his abdomen feels considerably better. Vitals/I&O/Wt Last Vital Signs Temp 97.9 F 08/22/21 08:00 Pulse 106 H 08/22/21 08:36 Resp 20 H 08/22/21 08:00 BP 123/69 08/22/21 08:00 Pulse Ox 90 08/22/21 08:00 08/21/21 08/22/21 08/22/21 22:59 06:59 14:59 Intake Total 370 / 1079.089 259.089 / 1079.089 454.775 / 454.775 Output Total 1200 / 4100 2150 / 4100 Balance -830 / -3020.911 -1890.911 / -3020.911 454.775 / 454.775 Weight last 48 hrs Weight 225 lb Weight 225 lb Physical Exam Narrative: EXAM NARRATIVE: Abdomen is soft. The cholecystostomy drain reportedly drained about 1500 mL yesterday but not a whole lot since. The bile in the drainage bag is very dark in color. Data : 08/22/21 06:37 08/22/21 06:37 Micro: Microbiology 08/22/21 06:39 Blood Culture - Preliminary Blood SPECIMEN COLLECTED 08/22/21 06:37 Blood Culture - Preliminary Blood SPECIMEN COLLECTED 08/20/21 07:20 Blood Culture - Preliminary Blood Gram positive cocci Gram Negative Rods 08/20/21 07:25 Blood Culture - Preliminary Blood Gram positive cocci Gram Negative Rods A&P Assessment and plan (1) Acute cholecystitis due to biliary calculus: Status post cholecystostomy tube placement on 08/21/2021. Subjectively the patient is much more comfortable. Status: Acute (2) Elevated LFTs: Improving. Status: Acute Attestations Medical Necessity Statement*: See admitting service's notation. Coding Level of Care Code Acute Medical Transcription for Krysten Gaffney Diagnoses Acute cholecystitis due to biliary calculus K80.00 Elevated LFTs R79.89
[2021-08-22] MEDS: FUROsemide 10 mg/mL SDV 4mL 40 MG IVP (10:18)
--- NOTE | 2021-08-22 11:14 | USCV_ITS ---
Lidia Ruvalcaba Age: 66 Gender: M : 1955 Exam Date: 08/22/2021 06:17 Ordering Phys: Alexis Lam MD Technologist: Jonna Carlton Exam Location: [facility] Indication: EDEMA HISTORY: Upper extremity swelling. Upper extremity edema. PROCEDURES: Venous duplex imaging was performed in only the left upper extremity. The following venous structures were evaluated: internal jugular vein, subclavian vein, axillary vein, and brachial veins. In addition, the basilic vein and cephalic vein. In addition, the radial vein and ulnar vein. FINDINGS: Normal 2-D, color Doppler and phasicity noted in the left upper extremity venous system extending from the left internal jugular vein through the main forearm. No thrombosis or occlusion noted. CONCLUSIONS No evidence of thrombus of the left upper extremity veins. Reuben Erwin MD (Electronically Signed) Final Date: 22 August 2021 10:11 S
--- NOTE | 2021-08-22 11:42 | PM.PN ---
Subjective Subjective: Interval history: Patient was seen this morning, he is currently in the ICU, afebrile overnight, currently down to 5 L, on Levophed at 8, on amiodarone drip, yesterday afternoon he had acute hypoxic respiratory failure secondary to fluid overload, responded well with diuresis, he is feeling better, he tells me that he is still quite hungry, he is about frustrated about still being here in the hospital, he I went over that he likely requires an ERCP procedure that cannot be done here in [facility], he likely will be transferred for ERCP procedure in sepsis and gram-positive gram-negative bacteremia however there are no ICU beds and all the hospitals I have called, but I will continue trying, the other option is is that he continues to get better is off pressors, and the bacteremia quickly resolved we can certainly discharge him with a quick follow-up with a skin fitter for an ERCP as outpatient Vitals/I&O/Wt Last Vital Signs Temp 97.9 F 08/22/21 08:00 Pulse 106 H 08/22/21 08:36 Resp 20 H 08/22/21 08:00 BP 123/69 08/22/21 08:00 Pulse Ox 90 08/22/21 08:00 08/21/21 08/22/21 08/22/21 22:59 06:59 14:59 Intake Total 370 / 820 259.089 / 5947.047 8404.458 / 1401.458 Output Total 1200 / 1950 2150 / 4100 1000 / 1000 Balance -830 / -1130 -1890.911 / -3020.911 401.458 / 401.458 Weight last 48 hrs Weight 102.058 kg Weight 102.058 kg Physical Exam Narrative: EXAM NARRATIVE: Jaundiced appearing, has scleral icterus Const: COMMON NORMALS: no acute distress and patient oriented x3 HENMT: COMMON NORMALS: normocephalic HEAD & SCALP: normocephalic Resp: COMMON NORMALS: normal respiratory effort, No retractions and No use of accessory muscles AUSCULTATION: crackles Cardio: COMMON NORMALS: regular rate, S1 normal heart sound present and S2 normal heart sound present RATE: regular rate RHYTHM: abnormal rhythm HEART SOUNDS: S1 normal heart sound present and S2 normal heart sound present GI: COMMON NORMALS: Normal to inspection, nondistended, normoactive bowel sounds present and Soft to palpation INSPECTION: Yes normal to inspection AUSCULTATION: Yes normoactive bowel sounds PALPATION: Yes Soft to palpation and Yes Tenderness to palpation present (GI) Details: RUQ OTHER: Right upper quadrant tenderness, to palpation, Extremity: COMMON NORMALS: no pedal edema NARRATIVE EXTREMITY EXAM: 1+ pitting edema bilateral lower extremities Neuro: COMMON NORMALS: patient oriented x3 Psych: COMMON NORMALS: mental status grossly normal Data : 08/22/21 06:37 08/22/21 06:37 Micro: Microbiology 08/20/21 07:20 Blood Culture - Preliminary Blood Coagulase negativ staphylococc Gram Negative Rods 08/20/21 07:25 Blood Culture - Preliminary Blood Coagulase negativ staphylococc Gram Negative Rods 08/22/21 06:39 Blood Culture - Preliminary Blood SPECIMEN COLLECTED 08/22/21 06:37 Blood Culture - Preliminary Blood SPECIMEN COLLECTED A&P Assessment and plan (1) RUQ pain: -CT scan of the abdomen pelvis showed gallbladder wall is thickened. There is pericholecystic fluid. High density sludge present in the neck of the gallbladder. 7 mm calcification is present in the region of the common duct. This is concerning for common bile duct stone -Gallbladder ultrasound shows Sludge and cholelithiasis. Gallbladder calculus in the neck of the gallbladder. Thickened gallbladder wall measuring 8.0 mm with pericholecystic fluid. Findings suspicious for cholecystitis. Some of this may be related to hepatic disease -T bili 3.2 -Transaminitis -Pro-Anthony 3.26, CRP 124 -Right upper quadrant pain today minimal, T-max 99.7, alert oriented x3 -Status post cholecystostomy tube, 1800 output -Blood cultures positive for gram-negative and gram-positive -above evidence of choledocholithiasis with acute cholecystitis -With evidence of sepsis, and bacteremia -Patient has a high risk of acute ascending cholangitis Plan: -Currently managed in ICU -Currently on Levophed, midodrine -On broad-spectrum antibiotic therapy vancomycin, Zosyn -Monitor for fevers, monitor right upper quadrant pain, monitor mentation -Full code -SCDs for DVT prophylaxis, start on therapeutic Lovenox -Patient requires urgent ERCP -I have called [facility] -[facility] in [place] -[facility] -Hospital in [place] -[facility] in [place] -[facility] in [facility] -[facility] -[facility] [place] -[facility] in [place] and Adonis Lobo in [place] - hospitals in [place] -2 [facility] hospitals in [facility] -[facility] in [place] -All hospitals are full, ICU are full, many are on ICU divert -I advised patient to me that I am doing my best to see if I can transfer him for ERCP evaluation, however given the load of COVID-19 on the healthcare system, this will be quite difficult, but will try on a daily basis, but there is a possibility that we would have to try to medically manage him here, discussed the morbidity and mortality associated with acute ascending cholangitis, however if he does clinically improve there is possibility of arranging an outpatient ERCP -Currently prognosis is guarded, status is stable Plan for today wean down amiodarone drip, continue Lasix therapy continue antibiotics, work on transfer wean Levophed Status: Acute (2) CHF (congestive heart failure): Currently in exacerbation, significantly better, 1 more dose of Lasix Decompensated heart failure with reduced ejection fraction. 2D echo: 07/2020: Normal LV size with reduced ejection fraction EF around 40%, diffuse hypokinesia of left ventricle, mildly dilated RV [id number] tricuspid valve regurgitation.Mild mitral and trace of aortic regurgitation. Moderate pulmonic regurgitation with a dilated pulmonary artery Moderate pulmonary hypertension with estimated pulmonary artery peak systolic pressure of 50 mmHg. Repeat 2D echo: 08/23: Normal LV size with diminished LVEF ( 40% ) , Diffuse hypokinesia of the left ventricle,Mildly dilated right ventricle with a slightly diminished ejection fraction. Mild to moderate TR, mild MR, trace AR, BNP over -6 L, does have shortness of breath, crackles on exam this afternoon, Daily dose Lasix Continue midodrine Continue albumin Replace magnesium Intake output charting Daily weight K>4, MG>2 Cardiac diet Telemetry Status: Acute Qualifiers: Heart failure chronicity: acute on chronic Heart failure type: combined systolic and diastolic Qualified Code(s): I50.43 - Acute on chronic combined systolic (congestive) and diastolic (congestive) heart failure (3) Atrial fibrillation: Had A. fib with RVR currently on amiodarone drip Resume Lovenox Amidarone 200 mg po BID Metoprolol 12.5 mg 3 times daily on digoxin 250mcqd, digoxin levels elevated 1.7 Metoprolol T 5 MG I.V Q4H PRN Status: Acute Qualifiers: Atrial fibrillation type: persistent (not longstanding) Qualified Code(s): I48.19 - Other persistent atrial fibrillation (4) Hyponatremia: resolved Monitor BMP Plan as above Status: Acute (5) CKD (chronic kidney disease) stage 3, GFR 30-59 ml/min: DESTINY ON CKD Stage 3 2/2 CRS Baseline SCR : 1.3-1.4 Current serum creatinine is 1.4 Monitor BMP Status: Acute (6) Hypertension: Currently Hypotensive Status: Acute Qualifiers: Hypertension type: essential hypertension Qualified Code(s): I10 - Essential (primary) hypertension (7) COPD (chronic obstructive pulmonary disease): Currently not in exacerbation Status: Acute Qualifiers: COPD type: unspecified COPD Qualified Code(s): J44.9 - Chronic obstructive pulmonary disease, unspecified (8) WENDI (obstructive sleep apnea): Uses CPAP at home. 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
--- NOTE | 2021-08-22 13:25 | PC.NURSE ---
Turning: Talked with patient about importance of turning and relieving pressure on pressure points, especially the bottom. Patient expressed understanding, however this nurse would recommend reinforcement of teaching as well as persistent encouragement to reposition. Will continue efforts.
--- NOTE | 2021-08-22 14:55 | PC.CHAP ---
Pastoral Care Encounter/Spiritual Assessment Type of Contact [] Declined service technician copier visit [] Patient/Family/Request visit [] Outpatient visit [xx] Follow-up visit [] Physician referral [] Code/Alert [] Routine visit [] Staff referral [] Actively dying [] Patient sleeping [] Family support [] [] Out of room [] Palliative care [] [] Receiving care in room [] Pre-surgical visit [] Trauma [xx] Long length of stay [xx] ICU visit [] Other: Relational/Emotional Strength [] Patient feels connected with others/family/visitors/staff [] Distress [] Loneliness/isolation [] Abandonment Spirituality of Patient [] Person of [place] [] Attends Jain of their [place] [] Believes in Prayer [] Reads Bible or Worship materials [] There are Spiritual issues to be addressed Concrete Mixer Operator Helper Interventions [xx] Prayer [] Active listening [] Non-anxious presence [] Spiritual/emotional support [] Crisis/trauma care [] Spiritual counseling [] Bereavement support [] Provided bereavement packet [] Provided Bible/devotional materials [] Provided toy/stuffed animal, coloring book to patient or family member [] Provided Communion [] Anointing/[place] [] Salvation [] Completed spiritual assessment [] Other: Impact on Illness or Injury [] Angry [] Fearful [] Anxious [] Often cries [] Exhaustion [] Unable to work [] Unable to attend scientologist [] Unable to walk/stand [] Unable to read [] Unable to drive [] Unable to eat/drink [] Unable to sleep [] Unable to be with family [] Patient intubated [] Other: Summary Concrete Mixer Operator Helper not allowed in room so prayed outside. Patient isolated. Time spent with patient
--- NOTE | 2021-08-22 15:17 | PC.NURSE ---
Patients blood pressure is 112/52 with a MAP of 72 at 0.5mcg/min of Levophed.
--- NOTE | 2021-08-22 15:24 | PC.NURSE ---
Patient is up to bedside chair and is watching TV. Patient was able to do approximately 50% of the work standing and pivoting to the chair, two nurse assisting.
--- NOTE | 2021-08-22 15:32 | PM.PN ---
Subjective Subjective: Interval history: Patient is steadily improving. Blood pressure is better heart rate still hangs around 110. Continue amiodarone Medications: Reviewed: Yes Medication Review Details: Current Medications Acetaminophen (Acetaminophen 325 Mg Tablet) 650 mg PO Q6H PRN PRN Reason: Mild/Mod Pain Or Temp >/= 101 Amiodarone HCl (Amiodarone 200 Mg Tablet) 200 mg PO 0900,2100 [facility] Atorvastatin Calcium (Atorvastatin 40 Mg Tablet) 20 mg PO DAILY [facility] Last Admin: 08/15/21 10:05 Dose: 20 mg Documented by: Bisacodyl (Bisacodyl 5 Mg Tablet) 10 mg PO DAILY PRN; Protocol PRN Reason: Constipation (see protocol) Furosemide (Furosemide 10 Mg/Ml Sdv 10ml) 80 mg IVP DAILY [facility] Last Admin: 08/15/21 10:06 Dose: 80 mg Documented by: Furosemide (Furosemide 10 Mg/Ml Sdv 4ml) 40 mg IVP Q24H [facility] Last Admin: 08/14/21 18:23 Dose: 40 mg Documented by: Amiodarone HCl 900 mg/Dextrose/ IV Miscellaneous Supplies 518 mls @ 0 mls/hr IV .Q0M [facility]; Protocol Last Titration: 08/15/21 13:02 Dose: Infused Documented by: Albumin Human (Albumin) 25 gm in 100 mls @ 60 mls/hr IV Q8H [facility] Last Titration: 08/15/21 12:05 Dose: Infused Documented by: Metoprolol Tartrate (Metoprolol Tartrate 25 Mg Tablet) 25 mg PO TID [facility] Montelukast Sodium (Montelukast Sodium 10 Mg Tablet) 10 mg PO DAILY [facility] Last Admin: 08/15/21 10:05 Dose: 10 mg Documented by: Naloxone HCl (Naloxone 0.4 Mg/Ml Sdv) 0.1 mg IVP Q2M PRN PRN Reason: OPIATERV Non-Formulary Medication (Tiotropium-Olodaterol [Stiolto Respimat]) 2 puff INHALATION DAILY [facility] Last Admin: 08/14/21 11:00 Dose: 2 puff Documented by: Ondansetron HCl (Ondansetron 2 Mg/Ml Sdv 2 Ml) 4 mg IVP Q8H PRN PRN Reason: vomiting, or N/V if npo Oxycodone/Acetaminophen (Oxycodone-Apap 10-325 Mg Tablet) 1 tab PO Q4H PRN PRN Reason: MODERATE PAIN Last Admin: 08/15/21 13:25 Dose: 1 tab Documented by: Pantoprazole Sodium (Pantoprazole Dr 40 Mg Tablet) 40 mg PO DAILY [facility] Last Admin: 08/15/21 10:06 Dose: 40 mg Documented by: Rivaroxaban (Rivaroxaban 10 Mg Tablet) 20 mg PO DAILY [facility] Last Admin: 08/15/21 10:06 Dose: 20 mg Documented by: Vitals/I&O/Wt Last Vital Signs Temp 97.9 F 08/22/21 08:00 Pulse 104 H 08/22/21 14:51 Resp 17 08/22/21 12:00 BP 125/72 08/22/21 12:00 Pulse Ox 90 08/22/21 12:00 08/22/21 08/22/21 08/22/21 06:59 14:59 22:59 Intake Total 259.089 / 2225.457 1685.468 / 1725.468 Output Total 2150 / 4100 2400 / 2400 Balance -1890.911 / -3020.911 -674.532 / -674.532 Weight last 48 hrs Weight 225 lb Weight 225 lb Physical Exam Narrative: EXAM NARRATIVE: GENERAL: Patient is awake denies any complaint, more oriented NECK: No jugular vein distension. HEENT: No cyanosis. No icterus. No pallor. HEART: Irregularly S1 and S2. No murmur, rub or gallop. LUNGS: Reduced intake entry no crepitus bilaterally. ABDOMEN: Patient was draped therefore I have not examined at CENTRAL NERVOUS SYSTEM: Grossly nonfocal. EXTREMITIES: Lower extremities without edema bilaterally. Data : 08/22/21 06:37 08/22/21 06:37 Micro: Microbiology 08/20/21 07:20 Blood Culture - Preliminary Blood Coagulase negativ staphylococc Gram Negative Rods 08/20/21 07:25 Blood Culture - Preliminary Blood Coagulase negativ staphylococc Gram Negative Rods 08/22/21 06:39 Blood Culture - Preliminary Blood SPECIMEN COLLECTED 08/22/21 06:37 Blood Culture - Preliminary Blood SPECIMEN COLLECTED A&P Assessment and plan (1) CHF (congestive heart failure): Appear to be dry continue gentle IV fluid at 75 mL/h for 1 more liter. Status: Acute Qualifiers: Heart failure chronicity: acute on chronic Heart failure type: combined systolic and diastolic Qualified Code(s): I50.43 - Acute on chronic combined systolic (congestive) and diastolic (congestive) heart failure (2) Atrial fibrillation: Continue IV amiodarone. Continue titrating beta-quique once holding the blood pressure better Status: Acute Qualifiers: Atrial fibrillation type: persistent (not longstanding) Qualified Code(s): I48.19 - Other persistent atrial fibrillation (3) Hyperlipidemia: Continue statin Status: Acute Qualifiers: Hyperlipidemia type: mixed hyperlipidemia Qualified Code(s): E78.2 - Mixed hyperlipidemia (4) Hypertension: Blood pressure has improved we will titrate off Status: Acute Qualifiers: Hypertension type: essential hypertension Qualified Code(s): I10 - Essential (primary) hypertension (5) WENDI (obstructive sleep apnea): Noncompliant to CPAP. Status: Acute (6) Shock: Resolved we will titrated off Status: Acute (7) Choledocholithiasis with acute cholecystitis: As per medicine surgery Status: Acute (8) Acute renal failure (ARF): Slowly improving. At this point we can hold diuretics Status: Acute Additional A&P Information Moderate pulmonary hypertension Mild to moderate tricuspid valve regurgitation COPD History of thoracoabdominal aneurysm repair. DESTINY on Chronic kidney disease stage 3: Baseline creatinine 1.4; Creatinine down to 1.2 with diuresis. Hyponatremia Thank you for allowing me to participate in patient's care. Please feel free to call with questions or concerns. Attestations Medical Necessity Statement*: Patient require continuation hospitalization for above defined care. Coding Level of Care Code Established Pt Acute Bag Sorter for Krysten Gaffney Patient Type Established History Expanded Problem Focused Exam Expanded Problem Focused Medical Decision Making Moderate Complexity Diagnoses CHF (congestive heart failure) I50.43 Heart failure chronicity: acute on chronic Heart failure type: combined systolic and diastolic Atrial fibrillation I48.19 Atrial fibrillation type: persistent (not longstanding) Hyperlipidemia E78.2 Hyperlipidemia type: mixed hyperlipidemia Hypertension I10 Hypertension type: essential hypertension WENDI (obstructive sleep apnea) G47.33 Shock R57.9 Choledocholithiasis with acute cholecystitis K80.42 Acute renal failure (ARF) N17.9
[2021-08-22] MEDS: amiodarone 200 mg Tablet 400 MG PO (17:05)
--- NOTE | 2021-08-22 17:59 | PC.NURSE ---
Clarified Amiodarone At approximately [address] Haider to stop amiodarone drip and start 400mg PO amiodarone.
--- NOTE | 2021-08-22 18:03 | PC.NURSE ---
Ambulation: Patient ambulated with assistance of walker and nurses, down the huerta and back to his room. He stated he would like to walk more often.
--- NOTE | 2021-08-22 18:05 | PC.NURSE ---
Optifoam: Applied 9x9 sacral optifoam to patients bottom for ulcer prevention. Patient has redness over sacral area and is encouraged to shift weight, change position, and turn Q2hr at nurses request; at a minimum. Patient verbalized understanding of the importance of relieving pressure to high risk areas.
--- NOTE | 2021-08-22 18:20 | PC.NURSE ---
Shift Note Frequent safety and comfort rounds continue. Orders and/or nursing care completed as indicated. Patient monitored for response to intervention and treatment(s). Education provided includes each medication given, for use and side effects, importance of turning, ambulating, and relieving pressure on areas of bony prominences. Patient and/or denial management representative verbally acknowledges understanding of teaching, however reinforcement is strongly suggested; especially with education about avoiding pressure ulcers. Patient was able to titrate off of levophed and IV amioderone. 400mg amioderone PO started. Patient was able to titrate from 15L O2 via mask, to 4L O2 Via NC. Mr. Ruvalcaba was able to move to the bedside chair for lunch and dinner and he was able to ambulate down the huerta and back to the bedside chair this afternoon. Current vitals are: HR 81, O2 91, BP 119/52.
[2021-08-23] VITALS (38 sets, daily range): BP systolic 102–138; BP diastolic 56–89; PULSE 76–123; RESP 19–28; TEMP 36.7–36.8; O2SAT 87–94; BMI 31.4
[2021-08-23] MEDS: vancomycin 1,500 MG/300 ML PIGGYBACK 200 MG IV (01:48)
[2021-08-23] MEDS: piperacillin-tazobactam 3.375 GM in sodium chloride 0.9% (plus) 50 ML IV ×3 (05:15→20:24)
[2021-08-23 05:28] LABS: Positive C 1
[2021-08-23 05:30] LABS: Basophils % 0.5 %; Eosinophils # 0.1 10^3/uL (0.0-0.8); Eosinophils % 0.8 %; Hematocrit 34.4 % (42.0-52.0); Hemoglobin 10.7 g/dL (11.7-16.6); Lymphocytes # 0.8 10^3/uL (0.8-4.8); Lymphocytes % 9.9 %; Mean Corpuscular HGB Conc 31.1 g/dL (30.0-36.0); Mean Corpuscular Hemoglobin 24.3 pg (28.0-34.0); Mean Corpuscular Volume 78.2 fl (80-94); Mean Platelet Volume 11.1 fL (7.4-10.4); Monocytes # 0.6 10^3/uL (0.2-0.9); Monocytes % 7.6 %; Neutrophils # 6.25 10^3/uL (1.8-7.7); Neutrophils % 80.7 %; Nucleated Red Blood Cells % 0 %; Platelet Count 76 10^3/cmm (130-400); Red Cell Distribution Width 18.4 % (12.1-15.1); White Blood Count 7.8 10^3/uL (4.0-10.0)
[2021-08-23 05:40] LABS: INR 1.39 (0.8-1.2)
[2021-08-23 05:52] LABS: Alanine Aminotransferase 24 U/L (0-41); Albumin Level 3.1 g/dL (3.5-5.2); Alkaline Phosphatase 143 IU/L (40-130); Anion Gap 12.5 (5-19); Aspartate Amino Transferase 49 U/L (0-40); Blood Urea Nitrogen 40 mg/dL (8-23); C Reactive Protein 100.9 mg/L (0.0-4.9); Calcium 9.3 mg/dL (8.5-10.5); Carbon Dioxide 36 mmol/L (22-29); Chloride 95 mmol/L (98-107); Creatinine Clr Calc Pharmacy 89.5867; Globulin 2.4 g/dL (1.3-4.6); Glucose 94 mg/dL (65-115); Magnesium 2.1 mg/dL (1.7-2.3); Osmolality Calculated 302 mOsm/kg (285-295); Phosphorus 1.9 mg/dL (2.5-4.5); Sodium 141 mmol/L (136-145); Total Bilirubin 3.2 mg/dL (0.15-1.2); Total Protein 5.5 g/dL (6.6-8.7)
[2021-08-23 05:57] LABS: NT Pro B Type Natriuretic Pept 11718 pg/mL (0-125); Procalcitonin 2.45 ng/mL (0-0.5)
[2021-08-23 06:03] LABS: Potassium 2.5 mmol/L (3.5-5.1)
[2021-08-23] MEDS: lidocaine 1% 5 ML in potassium chloride premix 100 ML 25 ML IV ×2 (06:19→10:33)
--- NOTE | 2021-08-23 07:00 | XRR_ITS ---
PROCEDURE INFORMATION: Exam: XR Chest Exam date and time: 08/23/2021 7:00 AM Age: 66 years old Clinical indication: Shortness of breath; Additional info: SOB TECHNIQUE: Imaging protocol: XR of the chest. Views: 1 view. Total images: 1 COMPARISON: CR XR chest 1V portable [id number] 08/21/2021 12:57 PM FINDINGS: Tubes, catheters and devices: Left-sided PICC tip is is unchanged in position. Lungs: Stable bilateral pleuroparenchymal disease. Pleural spaces: No pneumothorax. Heart/Mediastinum: Heart is enlarged but stable when compared to the prior exam. Bones/joints: Osseous structures are unchanged from the prior exam. XR/XR chest 1V portable [id number] IMPRESSION: 1. Heart is enlarged but stable when compared to the prior exam. 2. Stable bilateral pleuroparenchymal disease.
[2021-08-23] MEDS: pantoprazole DR 40 mg Tablet PO (08:01)
[2021-08-23] MEDS: midodrine 5 mg TABLET 20 MG PO (08:01)
[2021-08-23] MEDS: docusate sodium 100 mg Capsule PO ×2 (08:01→17:12)
[2021-08-23] MEDS: amiodarone 200 mg Tablet 400 MG PO (08:02)
[2021-08-23] MEDS: atorvastatin 40 mg Tablet 20 MG PO (08:02)
[2021-08-23] MEDS: montelukast sodium 10 mg Tablet PO (08:02)
[2021-08-23] MEDS: polyethylene glycol 3350 Pkt 17 gm PO (08:03)
[2021-08-23] MEDS: metoprolol tartrate 25 mg Tablet 12.5 MG PO ×3 (08:03→20:26)
[2021-08-23] MEDS: digoxin 250 mcg Tablet PO (08:08)
[2021-08-23] MEDS: rivaroxaban 10 mg Tablet 20 MG PO (08:13)
[2021-08-23] MEDS: NON-FORMULARY MEDICATION (Tiotropium-Olodaterol [Stiolto Respimat] 2.5-2.5 mcg/actuation m 2 EACH INHALATION (08:52)
--- NOTE | 2021-08-23 09:07 | P.PN_ITS ---
Subjective Subjective: Interval history: Patient is feeling better. Denies chest pain. Of diuretics however making good amount of urine. Vitals/I&O/Wt Last Vital Signs Temp 98.1 F 08/23/21 08:00 Pulse 84 08/23/21 08:08 Resp 18 08/22/21 20:00 BP 123/62 08/23/21 08:00 Pulse Ox 91 08/23/21 08:00 08/22/21 08/23/21 08/23/21 22:59 06:59 14:59 Intake Total 693.1709 / 2418.6389 690 / 3108.6389 1530 / 1530 Output Total 2200 / 4600 2450 / 7050 200 / 200 Balance -1506.8291 / -2181.3611 -1760 / -3941.3611 1330 / 1330 Weight last 48 hrs Weight 225 lb Weight 225 lb Physical Exam Narrative: EXAM NARRATIVE: GENERAL: Patient is alert and oriented NECK: No jugular vein distension. HEENT: No cyanosis. No icterus. No pallor. HEART: Irregularly S1 and S2. No murmur, rub or gallop. LUNGS: Decreased sounds bilaterally CENTRAL NERVOUS SYSTEM: Grossly nonfocal. EXTREMITIES: Lower extremities without edema bilaterally. Data : 08/24/21 04:00 08/24/21 04:55 Micro: Microbiology 08/20/21 07:25 Blood Culture - Preliminary Blood Coagulase negativ staphylococc Enterobacter cloacae 08/20/21 07:20 Blood Culture - Preliminary Blood Coagulase negativ staphylococc Enterobacter cloacae 08/22/21 06:39 Blood Culture - Preliminary Blood NEGATIVE TO DATE 08/22/21 06:37 Blood Culture - Preliminary Blood NEGATIVE TO DATE A&P Assessment and plan (1) CHF (congestive heart failure): Continue holding diuretics for now. He is making good urine. Monitor I&O's and creatinine closely. Status: Acute Qualifiers: Heart failure chronicity: acute on chronic Heart failure type: combined systolic and diastolic Qualified Code(s): I50.43 - Acute on chronic combined systolic (congestive) and diastolic (congestive) heart failure (2) Atrial fibrillation: Amiodarone switched to oral form. Still in A. fib but heart rates are controlled now. Status: Acute Qualifiers: Atrial fibrillation type: persistent (not longstanding) Qualified Code(s): I48.19 - Other persistent atrial fibrillation (3) Hyperlipidemia: Continue statin Status: Acute Qualifiers: Hyperlipidemia type: mixed hyperlipidemia Qualified Code(s): E78.2 - Mixed hyperlipidemia (4) Hypertension: Off of pressors. Blood pressure is stable Status: Acute Qualifiers: Hypertension type: essential hypertension Qualified Code(s): I10 - Essential (primary) hypertension (5) WENDI (obstructive sleep apnea): Noncompliant to CPAP. Status: Acute (6) Shock: Resolved Status: Acute (7) Choledocholithiasis with acute cholecystitis: As per medicine surgery Status: Acute (8) Acute renal failure (ARF): Keep holding diuretics. Patient's creatinine has normalized today and is 1. Making good amount of urine. Status: Acute Additional A&P Information Moderate pulmonary hypertension Mild to moderate tricuspid valve regurgitation COPD History of thoracoabdominal aneurysm repair. DESTINY on Chronic kidney disease stage 3: Baseline creatinine 1.4; Creatinine down to 1.2 with diuresis. Hyponatremia Thank you for allowing me to participate in patient's care. Please feel free to call with questions or concerns. Attestations Medical Necessity Statement*: Care expected to cross 2 midnights. Coding Level of Care Code Acute Family Medicine Resident for Krysten Gaffney Diagnoses CHF (congestive heart failure) I50.43 Heart failure chronicity: acute on chronic Heart failure type: combined systolic and diastolic Atrial fibrillation I48.19 Atrial fibrillation type: persistent (not longstanding) Hyperlipidemia E78.2 Hyperlipidemia type: mixed hyperlipidemia Hypertension I10 Hypertension type: essential hypertension WENDI (obstructive sleep apnea) G47.33 Shock R57.9 Choledocholithiasis with acute cholecystitis K80.42 Acute renal failure (ARF) N17.9
[2021-08-23 10:58] LABS: LAB Peripheral Smear Sent for Review
--- NOTE | 2021-08-23 14:49 | P.PN_ITS ---
Subjective Subjective: Interval history: Patient was seen this morning, he is alert oriented x3, his right upper quadrant abdominal pain is very minimal, no fevers overnight, no chills, he is breathing a lot better he tells me, is on 4 L, remains off pressors, continues to have A. fib but rates are well controlled, yesterday I had called multiple hospitals to arrange for possible transfer, [facility] all their ICUs are full Vitals/I&O/Wt Last Vital Signs Temp 98.3 F 08/23/21 12:00 Pulse 88 08/23/21 14:00 Resp 18 08/22/21 20:00 BP 126/84 08/23/21 12:00 Pulse Ox 90 08/23/21 12:00 08/22/21 08/23/21 08/23/21 22:59 06:59 14:59 Intake Total 693.1709 / 2418.6389 690 / 3108.6389 2095 / 2095 Output Total 2200 / 4600 2450 / 7050 1200 / 1200 Balance -1506.8291 / -2181.3611 -1760 / -3941.3611 895 / 895 Weight last 48 hrs Weight 102.058 kg Weight 102.058 kg Physical Exam Narrative: EXAM NARRATIVE: Jaundiced appearing, has scleral icterus Const: COMMON NORMALS: no acute distress and patient oriented x3 Resp: COMMON NORMALS: normal respiratory effort, No use of accessory muscles and clear to auscultation bilaterally AUSCULTATION: clear to auscultation bilaterally Cardio: COMMON NORMALS: regular rate, S1 normal heart sound present and S2 normal heart sound present RATE: regular rate RHYTHM: abnormal rhythm irregularly irregular HEART SOUNDS: S1 normal heart sound present and S2 normal heart sound present GI: COMMON NORMALS: Soft to palpation INSPECTION: Yes normal to inspection AUSCULTATION: Yes normoactive bowel sounds PALPATION: Yes Soft to palpation OTHER: AMY drain in place Extremity: COMMON NORMALS: no calf tenderness and no pedal edema NARRATIVE EXTREMITY EXAM: 1+ pitting edema bilateral lower extremities Neuro: COMMON NORMALS: patient oriented x3 Psych: COMMON NORMALS: mental status grossly normal Data : 08/23/21 04:40 08/23/21 04:40 Micro: Microbiology 08/20/21 07:25 Blood Culture - Preliminary Blood Coagulase negativ staphylococc Enterobacter cloacae 08/20/21 07:20 Blood Culture - Preliminary Blood Coagulase negativ staphylococc Enterobacter cloacae 08/22/21 06:39 Blood Culture - Preliminary Blood NEGATIVE TO DATE 08/22/21 06:37 Blood Culture - Preliminary Blood NEGATIVE TO DATE A&P Assessment and plan (1) RUQ pain: -CT scan of the abdomen pelvis showed gallbladder wall is thickened. There is pericholecystic fluid. High density sludge present in the neck of the gallbladder. 7 mm calcification is present in the region of the common duct. This is concerning for common bile duct stone -Gallbladder ultrasound shows Sludge and cholelithiasis. Gallbladder calculus in the neck of the gallbladder. Thickened gallbladder wall measuring 8.0 mm with pericholecystic fluid. Findings suspicious for cholecystitis. Some of this may be related to hepatic disease -T bili 3.2 -Transaminitis -Pro-Anthony 2.45, CRP 100.9 -Right upper quadrant pain today minimal, T-max 90.3, alert oriented x3 -Status post cholecystostomy tube, 850 output -Blood cultures positive for Enterobacter cloacae, coagulase-negative staphylococci, repeat blood cultures so far negative -above evidence of choledocholithiasis with acute cholecystitis -With evidence of sepsis resolved -Shock resolved -Patient has a high risk of acute ascending cholangitis Plan: -We will de-escalate out of ICU to CSU -Off Levophed -Wean off midodrine -On broad-spectrum antibiotic therapy vancomycin, Zosyn, will de-escalate in the next 24 to 48 hours -Monitor for fevers, monitor right upper quadrant pain, monitor mentation -Full code -SCDs for DVT prophylaxis, start on therapeutic Lovenox -Patient requires ERCP for choledocholithiasis -I have called [facility] -[facility] -[facility] in [place] -[facility] in [place] -[facility] -[facility] in [place] -[facility] in [place] -[facility] [place] -[facility] in [place] in [place] - hospitals in [place] -[facility] hospitals in [facility] -[facility] in [place] -All hospitals are full, ICU are full, many are on ICU divert -Will de-escalate out of the ICU, hopefully this will open up more options for patient -The other option as he continues to clinically improve, can certainly discharge with a close follow-up with the sand cutter operator for an ERCP and a cholecystectomy as outpatient, will get options from patient and family Plan for today moved to CSU continue antibiotics, hold Lasix, stop Lovenox, switch to Xarelto Status: Acute (2) CHF (congestive heart failure): Exacerbation resolved Decompensated heart failure with reduced ejection fraction. 2D echo: 07/2020: Normal LV size with reduced ejection fraction EF around 40%, diffuse hypokinesia of left ventricle, mildly dilated RV [id number] tricuspid valve regurgitation.Mild mitral and trace of aortic regurgitation. Moderate pulmonic regurgitation with a dilated pulmonary artery Moderate pulmonary hypertension with estimated pulmonary artery peak systolic pressure of 50 mmHg. Repeat 2D echo: 08/23: Normal LV size with diminished LVEF ( 40% ) , Diffuse hypokinesia of the left ventricle,Mildly dilated right ventricle with a slightly diminished ejection fraction. Mild to moderate TR, mild MR, trace AR, -10 L Daily dose Lasix as needed Continue midodrine, de-escalate midodrine Continue albumin Replace magnesium Intake output charting Daily weight K>4, MG>2 Cardiac diet Telemetry Status: Acute Qualifiers: Heart failure chronicity: acute on chronic Heart failure type: combined systolic and diastolic Qualified Code(s): I50.43 - Acute on chronic combined systolic (congestive) and diastolic (congestive) heart failure (3) Atrial fibrillation: Had A. fib with RVR currently on amiodarone drip Resume Xarelto Amidarone 400 mg daily Metoprolol 12.5 mg 3 times daily on digoxin 250mcqd, digoxin levels elevated 1.7 Metoprolol T 5 MG I.V Q4H PRN Status: Acute Qualifiers: Atrial fibrillation type: persistent (not longstanding) Qualified Code(s): I48.19 - Other persistent atrial fibrillation (4) Hyponatremia: resolved Monitor BMP Plan as above Status: Acute (5) CKD (chronic kidney disease) stage 3, GFR 30-59 ml/min: DESTINY ON CKD Stage 3 2/2 CRS Baseline SCR : 1.3-1.4 Current serum creatinine is 1.0 Monitor BMP Status: Acute (6) Hypertension: Status: Acute Qualifiers: Hypertension type: essential hypertension Qualified Code(s): I10 - Essential (primary) hypertension (7) COPD (chronic obstructive pulmonary disease): Currently not in exacerbation Status: Acute Qualifiers: COPD type: unspecified COPD Qualified Code(s): J44.9 - Chronic obstructive pulmonary disease, unspecified (8) WENDI (obstructive sleep apnea): Uses CPAP at home. 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: Status: Acute (10) Anasarca: Status: Acute (11) Sepsis: Status: Acute (12) Acute cholecystitis due to biliary calculus: Status: Acute (13) Choledocholithiasis with acute cholecystitis: Status: Acute (14) Gram-positive bacteremia: Status: Acute (15) Gram-negative bacteremia: Status: Acute (16) Thrombocytopenia: -Possibly heparin-induced thrombocytopenia, as patient's been on Lovenox and heparin -Lovenox has been discontinued -HIT panel ordered -Switch to Xarelto -Monitor for INR Status: Acute Additional A&P Information CODE STATUS: Full code DVT prophylaxis: xarelto Attestations Medical Necessity Statement*: Patient requires hospitalization for A. 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 Representative [employer] for [facility] Fwd Diagnoses RUQ pain R10.11 CHF (congestive heart failure) I50.43 Heart failure chronicity: acute on chronic Heart failure type: combined systolic and diastolic Atrial fibrillation I48.19 Atrial fibrillation type: persistent (not longstanding) Hyponatremia E87.1 CKD (chronic kidney disease) stage 3, GFR 30-59 ml/min N18.30 Hypertension I10 Hypertension type: essential hypertension COPD (chronic obstructive pulmonary disease) J44.9 COPD type: unspecified COPD WENDI (obstructive sleep apnea) G47.33 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
--- NOTE | 2021-08-23 15:15 | PC.NURSE ---
0700 Report received, assessment completed. No c/o pain or SOB. AAO, confused at times. Must explain things simply. VSS. Potassium infusing to PICC per orders. Sunshine cath in place draining freely. Bile drain in place, draining freely. Site c/d/i and secured with abd binder. Makes all needs known. Will continue to monitor. 1430 Pt assisted up to chair in room, tolerated well. Ambulated to chair with min to mod assist. Denies any pain. CLWR. Will monitor.
--- NOTE | 2021-08-23 16:23 | PC.NURSE ---
1615 Pt transferred to room 104, tolerated well. Assisted to bed and hooked to monitors.
--- NOTE | 2021-08-23 16:45 | PC.NURSE ---
Received patient from ICU nurse. Pt alert and oriented, VS stable, pt has no questions or concerns. Pt oriented to room and call tilley use. Nurse will continue to monitor.
[2021-08-23] MEDS: HYDROmorphone 1 mg/mL INJ 1 mL 0.5 MG IVP (18:18)
[2021-08-23 20:00] LABS: Vancomycin Trough 13.2 ug/mL (10-15)
[2021-08-23] MEDS: vancomycin 1,500 MG/300 ML PIGGYBACK 150 MG IV (20:21)
[2021-08-23] MEDS: midodrine 5 mg TABLET 10 MG PO (20:26)
[2021-08-24] VITALS (9 sets, daily range): BP systolic 107–142; BP diastolic 61–88; PULSE 94–130; RESP 20–27; TEMP 36.4–37.2; O2SAT 91–93
[2021-08-24 04:34] LABS: Basophils % 0.4 %; Eosinophils % 0.3 %; Hemoglobin 12.3 g/dL (11.7-16.6); Lymphocytes # 0.9 10^3/uL (0.8-4.8); Lymphocytes % 8.9 %; Mean Corpuscular HGB Conc 31.5 g/dL (30.0-36.0); Mean Corpuscular Hemoglobin 24.2 pg (28.0-34.0); Mean Corpuscular Volume 76.8 fl (80-94); Mean Platelet Volume 11.9 fL (7.4-10.4); Monocytes # 0.4 10^3/uL (0.2-0.9); Monocytes % 4.5 %; Neutrophils % 84.8 %; Nucleated Red Blood Cells % 0 %; Platelet Count 69 10^3/cmm (130-400); Red Blood Count 5.08 10^6/uL (4.1-5.3); Red Cell Distribution Width 18.7 % (12.1-15.1); White Blood Count 9.7 10^3/uL (4.0-10.0)
[2021-08-24 04:48] LABS: INR 1.57 (0.8-1.2); Partial Thromboplastin Time 39.4 SECONDS (23.9-36.7)
[2021-08-24 04:49] LABS: Fibrinogen 412 mg/dL (174-498)
[2021-08-24] MEDS: piperacillin-tazobactam 3.375 GM in sodium chloride 0.9% (plus) 50 ML IV ×2 (04:57→13:10)
[2021-08-24 04:59] LABS: D Dimer 3.81 ug/mIFEU (0-0.59)
[2021-08-24 05:23] LABS: Slide Review Slide Review Perform
[2021-08-24 05:45] LABS: NT Pro B Type Natriuretic Pept 11321 pg/mL (0-125); Procalcitonin 1.37 ng/mL (0-0.5)
[2021-08-24 05:56] LABS: Alanine Aminotransferase 22 U/L (0-41); Alkaline Phosphatase 181 IU/L (40-130); Aspartate Amino Transferase 51 U/L (0-40); Blood Urea Nitrogen 26 mg/dL (8-23); C Reactive Protein 72.2 mg/L (0.0-4.9); Calcium 9.1 mg/dL (8.5-10.5); Carbon Dioxide 38 mmol/L (22-29); Chloride 95 mmol/L (98-107); Globulin 2.6 g/dL (1.3-4.6); Glomerular Filtration Rate 135.2 mL/min (90-130); Glucose 86 mg/dL (65-115); Magnesium 1.8 mg/dL (1.7-2.3); Osmolality Calculated 298 mOsm/kg (285-295); Phosphorus 1.4 mg/dL (2.5-4.5); Sodium 142 mmol/L (136-145); Total Protein 5.6 g/dL (6.6-8.7)
[2021-08-24 06:04] LABS: Anion Gap 11.8 (5-19)
[2021-08-24 06:05] LABS: Potassium 2.8 mmol/L (3.5-5.1)
[2021-08-24] MEDS: lidocaine 1% 5 ML in potassium chloride premix 100 ML 25 ML IV ×2 (06:30→13:05)
[2021-08-24 06:43] LABS: Ammonia 38 umol/L (16-60)
[2021-08-24] MEDS: digoxin 250 mcg Tablet PO (09:40)
[2021-08-24] MEDS: midodrine 5 mg TABLET 10 MG PO ×2 (09:40→15:05)
[2021-08-24] MEDS: rivaroxaban 10 mg Tablet 20 MG PO (09:40)
[2021-08-24] MEDS: amiodarone 200 mg Tablet 400 MG PO (09:40)
[2021-08-24] MEDS: metoprolol tartrate 25 mg Tablet 12.5 MG PO ×2 (09:40→15:05)
[2021-08-24] MEDS: montelukast sodium 10 mg Tablet PO (09:42)
[2021-08-24] MEDS: atorvastatin 40 mg Tablet 20 MG PO (09:42)
[2021-08-24] MEDS: pantoprazole DR 40 mg Tablet PO (09:42)
--- NOTE | 2021-08-24 10:15 | P.PN_ITS ---
Subjective Subjective: Interval history: Patient is overall doing well. Denies chest pain. Heart rate has been fluctuating. Vitals/I&O/Wt Last Vital Signs Temp 98.9 F 08/24/21 09:08 Pulse 125 H 08/24/21 09:40 Resp 27 H 08/24/21 09:08 BP 109/61 08/24/21 09:08 Pulse Ox 92 08/24/21 09:08 08/23/21 08/24/21 08/24/21 22:59 06:59 14:59 Intake Total 842.778 / 3042.778 1350 / 4392.778 410 / 410 Output Total 1100 / 2300 1250 / 3550 450 / 450 Balance -257.222 / 742.778 100 / 842.778 -40 / -40 Weight last 48 hrs Weight 214 lb 3.2 oz Weight 225 lb Physical Exam Narrative: EXAM NARRATIVE: GENERAL: Patient is alert and oriented NECK: No jugular vein distension. HEENT: No cyanosis. No icterus. No pallor. HEART: Irregularly S1 and S2. No murmur, rub or gallop. LUNGS: Decreased sounds bilaterally CENTRAL NERVOUS SYSTEM: Grossly nonfocal. EXTREMITIES: Lower extremities without edema bilaterally. Data : 08/24/21 04:00 08/24/21 04:55 Micro: Microbiology 08/20/21 07:25 Blood Culture - Preliminary Blood Coagulase negativ staphylococc Enterobacter cloacae 08/20/21 07:20 Blood Culture - Preliminary Blood Coagulase negativ staphylococc Enterobacter cloacae 08/22/21 06:39 Blood Culture - Preliminary Blood NEGATIVE TO DATE 08/22/21 06:37 Blood Culture - Preliminary Blood NEGATIVE TO DATE A&P Assessment and plan (1) CHF (congestive heart failure): Urine output is good. Continue holding diuretics for now. Status: Acute Qualifiers: Heart failure chronicity: acute on chronic Heart failure type: combined systolic and diastolic Qualified Code(s): I50.43 - Acute on chronic combined systolic (congestive) and diastolic (congestive) heart failure (2) Atrial fibrillation: Amiodarone switched to oral form. Heart rates are fluctuating significantly. Uptitrate amiodarone to 400 mg twice daily. If heart rate stay elevated, he may require IV amiodarone. Status: Acute Qualifiers: Atrial fibrillation type: persistent (not longstanding) Qualified Code(s): I48.19 - Other persistent atrial fibrillation (3) Hyperlipidemia: Continue statin Status: Acute Qualifiers: Hyperlipidemia type: mixed hyperlipidemia Qualified Code(s): E78.2 - M ixed hyperlipidemia (4) Hypertension: Off of pressors. Blood pressure is stable Status: Acute Qualifiers: Hypertension type: essential hypertension Qualified Code(s): I10 - Essential (primary) hypertension (5) WENDI (obstructive sleep apnea): Noncompliant to CPAP. Status: Acute (6) Shock: Resolved Status: Acute (7) Choledocholithiasis with acute cholecystitis: As per medicine surgery Status: Acute (8) Acute renal failure (ARF): Creatinine has improved to 0.6. Urine output is good. Keep holding diuretics. Status: Acute Additional A&P Information Moderate pulmonary hypertension Mild to moderate tricuspid valve regurgitation COPD History of thoracoabdominal aneurysm repair. DESTINY on Chronic kidney disease stage 3: Baseline creatinine 1.4; Creatinine down to 0.6 with diuresis. Hyponatremia Thank you for allowing me to participate in patient's care. Please feel free to call with questions or concerns. Attestations Medical Necessity Statement*: Care expected to cross 2 midnights. 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
--- NOTE | 2021-08-24 11:15 | PC.SOCIAL ---
IMM UPdate Page 2 of [facility] updated and reviewed. Initialed, timed and dated and copy left in chart.
--- NOTE | 2021-08-24 11:53 | PC.CHAP ---
Pastoral Care Encounter/Spiritual Assessment Type of Contact [] Declined diamond blender visit [] Patient/Family/Request visit [] Outpatient visit [XX] Follow-up visit [] Physician referral [] Code/Alert [] Routine visit [] Staff referral [] Actively dying [XX] Patient sleeping [] Family support [] [] Out of room [] Palliative care [] [] Receiving care in room [] Pre-surgical visit [] Trauma [] Long length of stay [] ICU visit [] Other: Relational/Emotional Strength [] Patient feels connected with others/family/visitors/staff [] Distress [] Loneliness/isolation [] Abandonment Spirituality of Patient [] Person of Gabbi [] Attends Holiness of their [place] [] Believes in Prayer [] Reads Bible or Scientologist materials [] There are Spiritual issues to be addressed Foreign Clerk Interventions [] Prayer [] Active listening [] Non-anxious presence [] Spiritual/emotional support [] Crisis/trauma care [] Spiritual counseling [] Bereavement support [] Provided bereavement packet [] Provided Bible/devotional materials [] Provided toy/stuffed animal, coloring book to patient or family member [] Provided Communion [] Anointing/[place] [] Salvation [] Completed spiritual assessment [] Other: Impact on Illness or Injury [] Angry [] Fearful [] Anxious [] Often cries [] Exhaustion [] Unable to work [] Unable to attend holiness [] Unable to walk/stand [] Unable to read [] Unable to drive [] Unable to eat/drink [] Unable to sleep [] Unable to be with family [] Patient intubated [] Other: Summary Time spent with patient
[2021-08-24] MEDS: vancomycin 1,500 MG/300 ML PIGGYBACK 200 MG IV (13:25)
--- NOTE | 2021-08-24 13:26 | PM.PN ---
Subjective Subjective: Interval history: Patient was seen this morning, he sitting up into a chair, denies any chest pain, no palpitations, no fevers, no chills, no nausea, no vomiting, he feels better, his heart rates are in the 120s A. fib, Yesterday I had a discussion with patient's sister Chante, she would like patient to be close to her in [place], she wants me to look at hospitals possibly [place], but patient has a lot of support in [place], so she wants him to be possibly transferred to [facility] to near [facility]. I advised Chante that I have called all hospitals in [facility], and all these hospitals unfortunately are full at the time, and they do not have a cardiac stepdown beds. However I will continue to call, in addition I have called all local hospitals including [place] and they are currently at maximum capacity. Chante is very concerned that we will discharge patient home, I advised Chante that I am also concerned as I feel that if we discharge him home with a close follow-up for an ERCP as outpatient, he has a high risk of not following up, he does not have a lot of social support, he is going to need a lot of help with his current medical condition I spoke to patient yesterday afternoon, about the plan, he declines placement [place], or [place], or [place], he tells me that he lives in the area, he wants to either go to [place] or [place], or [place]. According to patient's request, I called all facilities in [place], [place], in [place] and they did not have any available stepdown beds. I did particularly talk to one physician at [place], who initially were thinking that they would take the patient, however given his ejection fraction, they felt that a med telemetry bed was not enough for patient's needs, and they did not have any stepdown beds. I advised patient again this morning that all hospitals are currently in maximal capacity, he was frustrated, he tells me that he should just go home, I advised patient that I am really worried about his risk of morbidity and mortality if he were to go home, he has a cholecystostomy tube that needs to be managed, he is deconditioned, he has intermittent A. fib, he has severe CHF, he needs to have an ERCP procedure as his bili remains high, eventually needs to have a cholecystectomy, he needs a lot of help, he needs on all of social support, he voiced understanding, he is agreeable for me to try again to transfer him to local hospitals around there including [facility] and [place]. Vitals/I&O/Wt Last Vital Signs Temp 98.9 F 08/24/21 09:08 Pulse 125 H 08/24/21 09:40 Resp 27 H 08/24/21 09:08 BP 109/61 08/24/21 09:08 Pulse Ox 92 08/24/21 09:08 08/23/21 08/24/21 08/24/21 22:59 06:59 14:59 Intake Total 842.778 / 3042.778 1350 / 4392.778 515 / 515 Output Total 1100 / 2300 1250 / 3550 450 / 450 Balance -257.222 / 742.778 100 / 842.778 65 / 65 Weight last 48 hrs Weight 97.159 kg Weight 102.058 kg Physical Exam Const: COMMON NORMALS: no acute distress GENERAL APPEARANCE: frail appearing ORIENTATION/CONSCIOUSNESS: Yes awake, Yes oriented to person, Yes oriented to place and Yes oriented to time OTHER: Jaundice, scleral icterus Resp: COMMON NORMALS: normal respiratory effort, No retractions, No use of accessory muscles and clear to auscultation bilaterally AUSCULTATION: clear to auscultation bilaterally Cardio: COMMON NORMALS: S1 normal heart sound present and S2 normal heart sound present RATE: tachycardic RHYTHM: abnormal rhythm HEART SOUNDS: S1 normal heart sound present and S2 normal heart sound present GI: COMMON NORMALS: Normal to inspection, nondistended, normoactive bowel sounds present and Soft to palpation PALPATION: Yes Soft to palpation and Yes Tenderness to palpation present (GI) Details: RUQ OTHER: Cholecystostomy tube in place, abdominal binder in place Extremity: COMMON NORMALS: no pedal edema Neuro: SENSORIUM/ORIENTATION: Yes oriented to person, Yes oriented to place and Yes oriented to time Data : 08/24/21 04:00 08/24/21 04:55 Micro: Microbiology 08/20/21 07:25 Blood Culture - Preliminary Blood Coagulase negativ staphylococc Enterobacter cloacae 08/20/21 07:20 Blood Culture - Preliminary Blood Coagulase negativ staphylococc Enterobacter cloacae A&P Assessment and plan (1) RUQ pain: -CT scan of the abdomen pelvis showed gallbladder wall is thickened. There is pericholecystic fluid. High density sludge present in the neck of the gallbladder. 7 mm calcification is present in the region of the common duct. This is concerning for common bile duct stone -Gallbladder ultrasound shows Sludge and cholelithiasis. Gallbladder calculus in the neck of the gallbladder. Thickened gallbladder wall measuring 7.0 mm with pericholecystic fluid. Findings suspicious for cholecystitis. Some of this may be related to hepatic disease -WBC 9.7 -T bili 5.0 -Transaminitis -Pro-Anthony 1.37, CRP 72 -Right upper quadrant pain today minimal, febrile overnight, alert oriented x3 -Status post cholecystostomy tube, 450 output -Blood cultures positive for Enterobacter cloacae, coagulase-negative staphylococci, repeat blood cultures so far negative -above evidence of choledocholithiasis with acute cholecystitis -With evidence of sepsis resolved -Shock resolved -Patient has a high risk of acute ascending cholangitis Plan: -Currently in cardiac stepdown unit -Off Levophed -Wean off midodrine -On broad-spectrum antibiotic therapy vancomycin, Zosyn, will de-escalate in the next 24 to 48 hours -Monitor cholecystostomy output, decreasing -Monitor for fevers, monitor right upper quadrant pain, monitor mentation -Full code -SCDs for DVT prophylaxis, Xarelto -Patient requires ERCP for choledocholithiasis, given continued elevated bili, concern for lack of follow-up, deconditioning -Currently will work on transferring to local hospitals including [facility]. I advised patient that these hospitals need to have have a stepdown unit bed and availability of ERCP which complicates things especially as the healthcare system is overwhelmed at the current time. But I am doing my best to seek transfer. -Currently given his deconditioning, his history of lack of follow-up, noncompliance, lack of social support locally, I feel uncomfortable discharging him home with follow-up as outpatient for ERCP Plan for today continue antibiotics, monitor platelet count, work on transfer Status: Acute (2) CHF (congestive heart failure): Exacerbation resolved Decompensated heart failure with reduced ejection fraction. 2D echo: 07/2020: Normal LV size with reduced ejection fraction EF around 40%, diffuse hypokinesia of left ventricle, mildly dilated RV [id number] tricuspid valve regurgitation.Mild mitral and trace of aortic regurgitation. Moderate pulmonic regurgitation with a dilated pulmonary artery Moderate pulmonary hypertension with estimated pulmonary artery peak systolic pressure of 50 mmHg. Repeat 2D echo: 08/23: Normal LV size with diminished LVEF ( 40% ) , Diffuse hypokinesia of the left ventricle,Mildly dilated right ventricle with a slightly diminished ejection fraction. Mild to moderate TR, mild MR, trace AR, -10 L Daily dose Lasix as needed de-escalate midodrine Continue albumin Replace magnesium Intake output charting Daily weight K>4, MG>2 Cardiac diet Telemetry Status: Acute Qualifiers: Heart failure chronicity: acute on chronic Heart failure type: combined systolic and diastolic Qualified Code(s): I50.43 - Acute on chronic combined systolic (congestive) and diastolic (congestive) heart failure (3) Atrial fibrillation: Had A. fib with RVR Resume Xarelto Amidarone 400 increased to twice daily Metoprolol 12.5 mg 3 times daily on digoxin 250mcqd, digoxin levels elevated 1.7 Metoprolol T 5 MG I.V Q4H PRN Status: Acute Qualifiers: Atrial fibrillation type: persistent (not longstanding) Qualified Code(s): I48.19 - Other persistent atrial fibrillation (4) Hyponatremia: resolved Monitor BMP Plan as above Status: Acute (5) CKD (chronic kidney disease) stage 3, GFR 30-59 ml/min: DESTINY ON CKD Stage 3 2/2 CRS Baseline SCR : 1.3-1.4 Current serum creatinine is 0.6 Monitor BMP Status: Acute (6) Hypertension: Status: Acute Qualifiers: Hypertension type: essential hypertension Qualified Code(s): I10 - Essential (primary) hypertension (7) COPD (chronic obstructive pulmonary disease): Currently not in exacerbation Status: Acute Qualifiers: COPD type: unspecified COPD Qualified Code(s): J44.9 - Chronic obstructive pulmonary disease, unspecified (8) WENDI (obstructive sleep apnea): Uses CPAP at home. 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: Status: Acute (10) Anasarca: Status: Acute (11) Sepsis: Status: Acute (12) Acute cholecystitis due to biliary calculus: Status: Acute (13) Choledocholithiasis with acute cholecystitis: Status: Acute (14) Gram-positive bacteremia: Status: Acute (15) Gram-negative bacteremia: Status: Acute (16) Thrombocytopenia: -Possibly heparin-induced thrombocytopenia, as patient's been on Lovenox -Lovenox has been discontinued -HIT panel ordered -Switch to Xarelto -Monitor for INR, monitor platelet count Status: Acute Additional A&P Information CODE STATUS: Full code DVT prophylaxis: xarelto Attestations Medical Necessity Statement*: Patient requires hospitalization for choledocholithiasis Maegan acute cholecystitis, cholecystostomy tube, CHF, A. 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 RUQ pain R10.11 CHF (congestive heart failure) I50.43 Heart failure chronicity: acute on chronic Heart failure type: combined systolic and diastolic Atrial fibrillation I48.19 Atrial fibrillation type: persistent (not longstanding) Hyponatremia E87.1 CKD (chronic kidney disease) stage 3, GFR 30-59 ml/min N18.30 Hypertension I10 Hypertension type: essential hypertension COPD (chronic obstructive pulmonary disease) J44.9 COPD type: unspecified COPD WENDI (obstructive sleep apnea) G47.33 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
[2021-08-24] MEDS: magnesium sulfate premix 2 GM/50 ML PIGGYBACK IV (15:04)
--- NOTE | 2021-08-24 15:16 | P.TS_ITS ---
Transfer Summary Providers Date of Admission: 08/13/21 14:19 Date of Discharge: 08/24/21 Attending Provider at Admission: Brando Cazares MD Attending Provider at Transfer: Alexis Lam MD Primary Care Provider: ALEJA Oropeza Anticipated Date of Transfer: Anticipated date of transfer: 08/24/21 Receiving Facility & Provider: Receiving Provider: [] Receiving facility: [] Diagnoses at Discharge Discharge Diagnosis (1) RUQ pain: Status: Acute (2) CHF (congestive heart failure): Status: Acute Qualifiers: Heart failure chronicity: acute on chronic Heart failure type: combined systolic and diastolic Qualified Code(s): I50.43 - Acute on chronic combined systolic (congestive) and diastolic (congestive) heart failure (3) Atrial fibrillation: Status: Acute Qualifiers: Atrial fibrillation type: persistent (not longstanding) Qualified Code(s): I48.19 - Other persistent atrial fibrillation (4) Hyponatremia: Status: Acute (5) CKD (chronic kidney disease) stage 3, GFR 30-59 ml/min: Status: Acute (6) Hypertension: Status: Acute Qualifiers: Hypertension type: essential hypertension Qualified Code(s): I10 - Essential (primary) hypertension (7) COPD (chronic obstructive pulmonary disease): Status: Acute Qualifiers: COPD type: unspecified COPD Qualified Code(s): J44.9 - Chronic obstructive pulmonary disease, unspecified (8) WENDI (obstructive sleep apnea): 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 fib on Xarelto, hypertension, who presents to [facility] due to shortness of breath and swelling Patient was initially admitted to [facility] for A. fib with RVR, and CHF exacerbation, -For his CHF he was diuresed over 7 L, with support of midodrine, dopamine, albumin, cardiology was consulted repeat echocardiogram showed EF was diminished ejection fraction of 35%, global left ventricle hypokinesis, flattened septum in systole consistent with right ventricular pressure overload, moderate to severe tricuspid valve regurg, when compared to echocardiogram 08/23/2020, left ventricular and right ventricular systolic function have decreased somewhat -For his atrial fibrillation, was initially managed with amiodarone drip, transition to p.o. amiodarone, digoxin, metoprolol, there are plans on possible performing a cardioversion initially however as patient developed acute cholecystitis with choledocholithiasis this was delayed, heart rates are better controlled after his sepsis and septic shock have resolved, no cardioversion required at this time -On 08/20/2021 was found to have acute cholecystitis with choledocholithiasis, with sepsis, septic shock, Enterobacter and coagulase-negative staph bacteremia, treated with broad-spectrum antibiotic therapy in the ICU, and surgery was consulted, had a cholecystostomy tube placed, clinically improved, out of septic shock, out of sepsis, moved to cardiac stepdown unit do not have ERCP capability to [facility], continues to have elevated T bili at 5, transferred to [facility] for ERCP procedure (1) RUQ pain: -CT scan of the abdomen pelvis showed gallbladder wall is thickened. There is pericholecystic fluid. High density sludge present in the neck of the gallbladder. 7 mm calcification is present in the region of the common duct. This is concerning for common bile duct stone -Gallbladder ultrasound shows Sludge and cholelithiasis. Gallbladder calculus in the neck of the gallbladder. Thickened gallbladder wall measuring 7.0 mm with pericholecystic fluid. Findings suspicious for cholecystitis. Some of this may be related to hepatic disease -WBC 9.7 -T bili 5.0 -Transaminitis -Pro-Anthony 1.37, CRP 72 -Right upper quadrant pain today minimal, febrile overnight, alert oriented x3 -Status post cholecystostomy tube, 450 output -Blood cultures positive for Enterobacter cloacae, coagulase-negative staphylococci, repeat blood cultures so far negative -above evidence of choledocholithiasis with acute cholecystitis -With evidence of sepsis resolved -Shock resolved -Patient has a high risk of acute ascending cholangitis Plan: -Currently in cardiac stepdown unit -Off Levophed -Wean off midodrine -On broad-spectrum antibiotic therapy vancomycin, Zosyn, will de-escalate in the next 24 to 48 hours -Monitor cholecystostomy output, decreasing -Monitor for fevers, monitor right upper quadrant pain, monitor mentation -Full code -SCDs for DVT prophylaxis, Xarelto, hold starting tomorrow -Patient requires ERCP for choledocholithiasis, given continued elevated bili, concern for lack of follow-up, deconditioning -Currently will work on transferring to local hospitals including [facility]. I advised patient that these hospitals need to have have a stepdown unit bed and availability of ERCP which complicates things especially as the healthcare system is overwhelmed at the current time. But I am doing my best to seek transfer. -Currently given his deconditioning, his history of lack of follow-up, noncompliance, lack of social support locally, I feel uncomfortable discharging him home with follow-up as outpatient for ERCP (2) CHF (congestive heart failure): Exacerbation resolved Decompensated heart failure with reduced ejection fraction. 2D echo: 07/2020: Normal LV size with reduced ejection fraction EF around 40%, diffuse hypokinesia of left ventricle, mildly dilated RV [id number] tricuspid valve regurgitation.Mild mitral and trace of aortic regurgitation. Moderate pulmonic regurgitation with a dilated pulmonary artery Moderate pulmonary hypertension with estimated pulmonary artery peak systolic pressure of 50 mmHg. Repeat 2D echo: 08/23: 1. Mildly dilated left ventricle. Moderately decreased left ventricular systolic function. Left ventricular ejection fraction is estimated at 35 %. Global left ventricular hypokinesis. Flattened septum in systole consistent with right ventricle pressure overload. 2. Moderate mitral valve regurgitation. Moderate to severe tricuspid valve regurgitation. 3. Pulmonary artery pressure estimated at 4. Moderate biatrial enlargement. 5. Right pleural effusion. Trivial pericardial effusion 6. When compared to previous echocardiogram dated 08/23/20, left and right ventricle systolic function may have decreased somewhat. -10 L Daily dose Lasix as needed de-escalate midodrine Continue albumin Replace magnesium Intake output charting Daily weight K>4, MG>2 Cardiac diet Telemetry CKD (chronic kidney disease) stage 3, GFR 30-59 ml/min: DESTINY ON CKD Stage 3 2/2 CRS Baseline SCR : 1.3-1.4 Current serum creatinine is 0.6 Thrombocytopenia: -Possibly heparin-induced thrombocytopenia, as patient's been on Lovenox -Lovenox has been discontinued -HIT panel ordered -Switch to Xarelto -Monitor for INR, monitor platelet count Physical Exam Narrative: EXAM NARRATIVE: Jaundice, scleral icterus Const: COMMON NORMALS: no acute distress and patient oriented x3 Resp: COMMON NORMALS: normal respiratory effort, No retractions, No use of accessory muscles and clear to auscultation bilaterally AUSCULTATION: clear to auscultation bilaterally Cardio: COMMON NORMALS: regular rate, S1 normal heart sound present and S2 normal heart sound present RATE: regular rate RHYTHM: abnormal rhythm HEART SOUNDS: S1 normal heart sound present and S2 normal heart sound present GI: COMMON NORMALS: Normal to inspection, nondistended, normoactive bowel sounds present, Soft to palpation and non-tender PALPATION: Yes Soft to palpation Extremity: COMMON NORMALS: no pedal edema Neuro: COMMON NORMALS: patient oriented x3 Psych: COMMON NORMALS: mental status grossly normal TS Data Data Completed and Pending: Completed Studies During Hospitalization Category Date Time Status CT abdomen pelvis wo con [id number] Stat Cat Scan 08/20/21 04:32 Completed CXRP [XR chest 1V portable [id number]] S tat Exams 08/20/21 09:37 Completed XR chest 1V nella ble [id number] Routine Exams 08/19/21 14:38 Completed XR chest 1V nella ble [id number] Routine Exams 08/20/21 Completed XR chest 1V nella ble [id number] Routine Exams 08/23/21 07:00 Completed XR chest 1V nella ble [id number] Stat Exams 08/13/21 10:33 Completed XR chest 1V nella ble [id number] Stat Exams 08/21/21 12:59 [place] [id number] Routin e Ultrasound 08/22/21 11:14 Completed CV. echo complete * [id number] Routine Ultrasound 08/15/21 14:17 Completed US abdomen limite d [id number] Routine Ultrasound 08/20/21 06:00 Completed US guide cholecys tostomy [id number] Rout ine Ultrasound 08/21/21 11:00 Completed Pending at discharge Category Date Time Status Ammonia AM LABS Lab 08/25/21 04:00 Ordered Ammonia AM LABS Lab 08/26/21 04:00 Ordered Blood Culture QAM Lab 08/22/21 06:39 Results Blood Culture Sta t Lab 08/20/21 07:25 Results C Reactive Protei n AM LABS Lab 08/25/21 04:00 Ordered C Reactive Protei n AM LABS Lab 08/26/21 04:00 Ordered Complete Blood Co unt w/Auto AM LABS Lab 08/25/21 04:00 Ordered Complete Blood Co unt w/Auto Routine Lab 08/24/21 18:00 Ordered Comprehensive Met abolic Panel AM LA BS Lab 08/25/21 04:00 Ordered DIC Profile AM LA BS Lab 08/25/21 04:00 Ordered DIC Profile AM LA BS Lab 08/26/21 04:00 Ordered Heparin Induced T hrombocytopen Stat Lab 08/23/21 09:50 Received LAB Peripheral Sm ear Stat Lab 08/24/21 18:00 Ordered Magnesium AM LABS Lab 08/25/21 04:00 Ordered NT Pro B Type Bertha riuretic Pept QAM Lab 08/25/21 06:00 Ordered NT Pro B Type Bertha riuretic Pept QAM Lab 08/26/21 06:00 Ordered Phosphorus AM LAB S Lab 08/25/21 04:00 Ordered Procalcitonin AM LABS Lab 08/25/21 04:00 Ordered Procalcitonin AM LABS Lab 08/26/21 04:00 Ordered Labs from last 24 hours 08/24/21 08/24/21 08/24/21 04:55 04:00 04:00 WBC 9.7 RBC 5.08 Hgb 12.3 Hct 39.0 L MCV 76.8 L MCH 24.2 L MCHC 31.5 RDW 18.7 H Plt Count 69 L MPV 11.9 H Neut % (Auto) 84.8 Lymph % (Auto) 8.9 [place] % (Auto) 4.5 Eos % (Auto) 0.3 Baso % (Auto) 0.4 Neut # (Auto) 8.20 H Lymph # (Auto) 0.9 [place] # (Auto) 0.4 Eos # (Auto) 0.0 Baso # (Auto) 0.0 Nucleated RBC % (a uto) 0 Nucleated RBCs # 0.0 PT INR APTT Fibrinogen Fibrin Degrad Prod ucts D-Dimer Sodium 142 Potassium 2.8 L* Chloride 95 L Carbon Dioxide 38 H Anion Gap 11.8 BUN 26 H Creatinine 0.6 L GFR Calculation 135.2 H Glucose 86 Calculated Osmolal ity 298 H Calcium 9.1 Phosphorus 1.4 L Magnesium 1.8 Total Bilirubin 5.0 H AST 51 H ALT 22 Alkaline Phosphata se 181 H Ammonia C-Reactive Protein 72.2 H NT-Pro-B Natriuret Pep 40164 H Cancelled Total Protein 5.6 L Albumin 3.0 L Globulin 2.6 Procalcitonin 1.37 H Cancelled Vancomycin Trough 08/24/21 08/24/21 08/24/21 04:00 04:00 04:00 WBC RBC Hgb Hct MCV MCH MCHC RDW Plt Count MPV Neut % (Auto) Lymph % (Auto) [place] % (Auto) Eos % (Auto) Baso % (Auto) Neut # (Auto) Lymph # (Auto) [place] # (Auto) Eos # (Auto) Baso # (Auto) Nucleated RBC % (a uto) Nucleated RBCs # PT 19.10 H INR 1.57 H APTT 39.4 H Fibrinogen 412 Fibrin Degrad Prod ucts Pos, 10-40 H D-Dimer 3.81 H Sodium Cancelled Potassium Cancelled Chloride Cancelled Carbon Dioxide Cancelled Anion Gap Cancelled BUN Cancelled Creatinine Cancelled GFR Calculation Cancelled Glucose Cancelled Calculated Osmolal ity Cancelled Calcium Cancelled Phosphorus Cancelled Magnesium Cancelled Total Bilirubin Cancelled AST Cancelled ALT Cancelled Alkaline Phosphata se Cancelled Ammonia 38 C-Reactive Protein Cancelled NT-Pro-B Natriuret Pep Total Protein Cancelled Albumin Cancelled Globulin Cancelled Procalcitonin Vancomycin Trough 08/23/21 19:08 WBC RBC Hgb Hct MCV MCH MCHC RDW Plt Count MPV Neut % (Auto) Lymph % (Auto) [place] % (Auto) Eos % (Auto) Baso % (Auto) Neut # (Auto) Lymph # (Auto) [place] # (Auto) Eos # (Auto) Baso # (Auto) Nucleated RBC % (a uto) Nucleated RBCs # PT INR APTT Fibrinogen Fibrin Degrad Prod ucts D-Dimer Sodium Potassium Chloride Carbon Dioxide Anion Gap BUN Creatinine GFR Calculation Glucose Calculated Osmolal ity Calcium Phosphorus Magnesium Total Bilirubin AST ALT Alkaline Phosphata se Ammonia C-Reactive Protein NT-Pro-B Natriuret Pep Total Protein Albumin Globulin Procalcitonin Vancomycin Trough 13.2 Vitals: Last Vital Signs Temp 97.6 F 08/24/21 13:28 Pulse 100 08/24/21 13:28 Resp 25 H 08/24/21 13:28 BP 107/78 08/24/21 13:28 Pulse Ox 91 08/24/21 13:28 TS Medications Medications Home Medications irbesartan 150 mg tablet 150 mg PO DAILY 12/27/19 [History Confirmed 08/13/21] pantoprazole 40 mg tablet,delayed release 40 mg PO DAILY 12/27/19 [History Confirmed 08/13/21] simvastatin 20 mg tablet 20 mg PO DAILY 12/27/19 [History Confirmed 08/13/21] montelukast 10 mg PO DAILY 08/20/20 [History Confirmed 08/13/21] amiodarone 200 mg tablet 200 mg PO DAILY #90 tab 04/14/21 [Rx Confirmed 08/13/21] amlodipine 10 mg tablet 10 mg PO DAILY #90 tab 04/14/21 [Rx Confirmed 08/13/21] rivaroxaban 20 mg tablet 20 mg PO DAILY #90 tab 04/14/21 [Rx Confirmed 08/13/21] tiotropium 2.5 mcg-olodaterol 2.5 mcg/actuation mist for inhalation 2 puff INHALATION DAILY #4 g 04/14/21 [Rx Confirmed 08/13/21] Active Medications Acetaminophen (Acetaminophen 325 Mg Tablet) 650 mg PO Q6H PRN PRN Reason: Mild/Mod Pain Or Temp >/= 101 Last Admin: 08/20/21 15:31 Dose: 650 mg Documented by: Amiodarone HCl (Amiodarone 200 Mg Tablet) 400 mg PO 0900,2100 [facility] Atorvastatin Calcium (Atorvastatin 40 Mg Tablet) 20 mg PO DAILY [facility] Last Admin: 08/24/21 09:42 Dose: 20 mg Documented by: Bisacodyl (Bisacodyl 5 Mg Tablet) 10 mg PO DAILY PRN; Protocol PRN Reason: Constipation (see protocol) Calcium Acetate (Calcium Acetate 667 Mg Capsule) 1,334 mg PO TIDWM [facility] Digoxin (Digoxin 250 Mcg Tablet) 250 mcg PO DAILY [facility] Last Admin: 08/24/21 09:40 Dose: 250 mcg Documented by: Docusate Sodium (Docusate Sodium 100 Mg Capsule) 100 mg PO BID [facility] Last Admin: 08/24/21 09:42 Dose: Not Given Documented by: Hydromorphone HCl (Hydromorphone 1 Mg/Ml Inj 1 Ml) 0.5 mg IVP Q4H PRN PRN Reason: PAIN Last Admin: 08/23/21 18:18 Dose: 0.5 mg Documented by: Norepinephrine Bitartrate 4 mg (/ Dextrose) 254 mls @ 0 mls/hr IV .Q0M [facility]; Protocol Last Titration: 08/23/21 19:32 Dose: Infused Documented by: Piperacillin Sod/Tazobactam (Sod 3.375 gm/ Sodium Chloride) 50 mls @ 12.5 mls/hr IV Q8H [facility]; Protocol Last Admin: 08/24/21 13:10 Dose: 12.5 mls/hr Documented by: Amiodarone HCl 900 mg/Dextrose/ IV Miscellaneous Supplies 518 mls @ 0 mls/hr IV .Q0M [facility]; Protocol Last Titration: 08/23/21 19:31 Dose: Infused Documented by: Vancomycin/PEG/NADA/Lysine/Water (Vancocin) 1,500 mg in 300 mls @ 200 mls/hr IV Q18H [facility] Last Admin: 08/24/21 13:25 Dose: 200 mls/hr Documented by: Lactulose (Lactulose Oral Liq 20 Gm/30 Ml Udc) 20 gm PO DAILY PRN PRN Reason: CONSTIPATION Metoprolol Tartrate (Metoprolol Tartrate 1 Mg/1 Ml Sdv 5 Ml) 5 mg IVP Q4H PRN PRN Reason: HEART RATE-HIGH Last Admin: 08/17/21 09:55 Dose: 5 mg Documented by: Metoprolol Tartrate (Metoprolol Tartrate 25 Mg Tablet) 12.5 mg PO TID [facility] Last Admin: 08/24/21 15:05 Dose: 12.5 mg Documented by: Midodrine (Midodrine 5 Mg Tablet) 10 mg PO TID [facility] Last Admin: 08/24/21 15:05 Dose: 10 mg Documented by: Montelukast Sodium (Montelukast Sodium 10 Mg Tablet) 10 mg PO DAILY [facility] Last Admin: 08/24/21 09:42 Dose: 10 mg Documented by: Morphine Sulfate (Morphine 4 Mg/Ml Sdv 1 Ml) 1 mg IVP Q4H PRN PRN Reason: SEVERE PAIN Naloxone HCl (Naloxone 0.4 Mg/Ml Sdv) 0.1 mg IVP Q2M PRN PRN Reason: OPIATERV Non-Formulary Medication (Tiotropium-Olodaterol [Stiolto Respimat]) 2 puff INHALATION DAILY [facility] Last Admin: 08/24/21 10:03 Dose: Not Given Documented by: Ondansetron HCl (Ondansetron 2 Mg/Ml Sdv 2 Ml) 4 mg IVP Q8H PRN PRN Reason: vomiting, or N/V if npo Last Admin: 08/18/21 21:00 Dose: 4 mg Documented by: Pantoprazole Sodium (Pantoprazole Dr 40 Mg Tablet) 40 mg PO DAILY [facility] Last Admin: 08/24/21 09:42 Dose: 40 mg Documented by: Polyethylene Glycol (Polyethylene Glycol 3350 Pkt 17 Gm) 17 gm PO DAILY [facility] Last Admin: 08/24/21 09:43 Dose: Not Given Documented by: Rivaroxaban (Rivaroxaban 10 Mg Tablet) 20 mg PO DAILY [facility] Last Admin: 08/24/21 09:40 Dose: 20 mg Documented by: Discharge Plan Discharge Patient Disposition: Home Condition: Stable Prescriptions: No Action irbesartan 150 mg tablet 150 mg PO DAILY RF: 0 simvastatin [Zocor] 20 mg tablet 20 mg PO DAILY RF: 0 pantoprazole 40 mg tablet,delayed release (DR/EC) 40 mg PO DAILY RF: 0 amiodarone 200 mg tablet 200 mg PO DAILY Qty: 90 RF: 0 amlodipine 10 mg tablet 10 mg PO DAILY Qty: 90 RF: 3 Xarelto 20 mg tablet 20 mg PO DAILY Qty: 90 RF: 3 Stiolto Respimat 2.5-2.5 mcg/actuation mist 2 puff inhalation DAILY Qty: 4 RF: 3 montelukast 10 mg Tablet 10 mg PO DAILY RF: 0 Referrals: [facility] [Outside] Laura So FNP [Primary Care Provider] - Patient Instructions: Opioid Safety Transfer Attestations Time Spent in Transfer Care*: greater than 30 min Quality Metrics Clinical Quality Measures: During this hospital stay, did patient experience: None Coding Level of Care Code Acute [employer]ing In[employer] for Krysten Gaffney Diagnoses RUQ pain R10.11 CHF (congestive heart failure) I50.43 Heart failure chronicity: acute on chronic Heart failure type: combined systolic and diastolic Atrial fibrillation I48.19 Atrial fibrillation type: persistent (not longstanding) Hyponatremia E87.1 CKD (chronic kidney disease) stage 3, GFR 30-59 ml/min N18.30 Hypertension I10 Hypertension type: essential hypertension COPD (chronic obstructive pulmonary disease) J44.9 COPD type: unspecified COPD WENDI (obstructive sleep apnea) G47.33 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
[2021-08-24] MEDS: calcium acetate 667 mg Capsule 1334 MG PO (17:49)
--- NOTE | 2021-08-24 18:02 | PC.NURSE ---
Hand-off transfer report called to [facility] Report called to Floresita England RN.
--- NOTE | 2021-08-24 18:17 | PC.NURSE ---
Called [facility] requested. Pt and sister Chante has been informed on the pt's transfer.
--- NOTE | 2021-08-24 19:39 | PC.NURSE ---
Transfer Note Patient transferred to [facility] via [facility]. Handoff provided to [place] nurse Floresita.
--- NOTE | 2021-08-27 09:11 | PC.SOCIAL ---
discharge follow up call made, spoke with Renetta she reports not much hasn't changed patient remains on 4L o2, continues to be on IV antibiotics.
[2021-08-27 16:03] LABS: Heparin Induced Platelet AB NEGATIVE (NEGATIVE)
[2021-08-28 22:04] LABS: UFH High Dose, 100 IU/ML 0 % release; UFH Low Dose, 0.1 IU/ML 0 % release; UFH Low Dose, 0.5 IU/ML 0 % release; UFH SRA Result NEGATIVE (NEGATIVE)
== END 2021-08-24 18:00 | disposition short-term general hospital (02) | DRG 291 ==
LOC: ER 11:51 → ICU 14:05 → CSU 08-15 18:28 → ICU 08-19 22:18 → CSU 08-23 16:09
PROVIDERS: Internal Medicine Cardiovascular Disease; Admitting Provider Internal Medicine; Emergency Provider Family Medicine; PCP Nurse Practitioner Family; Visit Provider Family Medicine
DX: I13.0 Hypertensive heart and chronic kidney disease with heart failure and stage 1 through stage 4 chronic kidney disease, or unspecified chronic kidney disease (principal); I50.43 Acute on chronic combined systolic (congestive) and diastolic (congestive) heart failure; R65.21 Severe sepsis with septic shock; N17.0 Acute kidney failure with tubular necrosis; J96.01 Acute respiratory failure with hypoxia; I48.19 Other persistent atrial fibrillation; E87.1 Hypo-osmolality and hyponatremia; K80.42 Calculus of bile duct with acute cholecystitis without obstruction; N18.30 Chronic kidney disease, stage 3 unspecified; K21.9 Gastro-esophageal reflux disease without esophagitis; G47.33 Obstructive sleep apnea (adult) (pediatric); Z87.891 Personal history of nicotine dependence; J44.9 Chronic obstructive pulmonary disease, unspecified; I07.1 Rheumatic tricuspid insufficiency; I27.20 Pulmonary hypertension, unspecified; I95.9 Hypotension, unspecified; D69.6 Thrombocytopenia, unspecified; B96.89 Other specified bacterial agents as the cause of diseases classified elsewhere; B95.8 Unspecified staphylococcus as the cause of diseases classified elsewhere; E78.2 Mixed hyperlipidemia
CPT/HCPCS: 36415; 36569; 36592; 36600; 47490; 71045; 74176; 76705; 80048; 80051; 80053; 80162; 80202; 81003; 82140; 82330; 82550; 82805; 82977; 83605; 83690; 83735; 83880; 84100; 84145; 84484; 85007; 85025; 85362; 85378; 85384; 85610; 85730; 86140; 86900; 86927; 87040; 87077; 87186; 87205; 87426; 93005; 93306; 93971; 94660; 96365; 96372; 96375; 97161; 97165; 97530; 99291; A4570; C1751; J0282; J1160; J1170; J1265; J1650; J1940; J2370; J2405; J2543; J3370; J3475; J3480; J3490; J7030; J7040; J7060; P9017; P9047